=== PATIENT | male | born 1945 | race Caucasian/White ===

== ENCOUNTER 2016-12-24 03:18 | Inpatient (IN) | payer MEDICARE, BC ==
[2016-12-24] MEDS ORDERED: Sodium Chloride 0.9% 1000 ML 1,000 ML IV STA (03:44)
[2016-12-24] MEDS ORDERED: Zofran 4 MG/2 ML VIAL IV ONE ×2 (03:44→08:00)
--- NOTE | 2016-12-24 03:48 | ERPHSYRPT ---
- History of Present Illness Time Seen by Provider: 12/24/16 03:46 Historian: patient Exam Limitations: no limitations Patient Subjective Stated Complaint: pt states he has been vomiting since he ate around 1300. c/o n/v and abd pain Triage Nursing Assessment: pt alert and oriented. answers questions approp. skin pink warm and dry. respirations nonlabored with lungs cta. abd distended and hard. bowel sounds hypo. pt states he hasnt been passing flatus for several hours but did have a normal bowel movement around 6pm. Physician History: pt states he has been vomiting since he ate around 1300. c/o n/v and abd pain. c /o abdominal distension, no diarrhea, no fever Timing/Duration: yesterday Activities at Onset: none Associated Symptoms: loss of appetite, nausea, vomiting Previous symptoms: no prior history Allergies/Adverse Reactions: iodine Allergy (Verified 12/24/16 04:06) Sulfa (Sulfonamide Antibiotics) Allergy (Verified 12/24/16 04:06) Home Medications: Amlodipine Besylate/Benazepril [Amlodipine-Benazepril 10-20 mg] 1 each PO DAILY 12/24/16 [History] Aspirin 81 mg PO DAILY 12/24/16 [History] Fenofibrate,Micronized [Fenofibrate] 134 mg PO DAILY 12/24/16 [History] Metoprolol Tartrate 100 mg PO BID 12/24/16 [History] Simvastatin 20 mg PO DAILY 12/24/16 [History] Triamterene/Hydrochlorothiazid [Triamterene-Hctz 37.5-25 mg Cp] 1 each PO DAILY 12/24/16 [History] Hx Tetanus, Diphtheria Vaccination/Date Given: Yes Hx Influenza Vaccination/Date Given: Yes Hx Pneumococcal Vaccination/Date Given: Yes Immunizations Up to Date: Yes - Review of Systems Constitutional: No Fever, No Chills Eyes: No Symptoms Ears, Nose, & Throat: No Symptoms Respiratory: No Cough, No Dyspnea Cardiac: No Chest Pain, No Edema, No Syncope Abdominal/Gastrointestinal: Nausea, Vomiting, Appetite Changes, No Abdominal Pain, No Diarrhea, No Hematemesis, No Hematochezia, No Melena Genitourinary Symptoms: No Dysuria Musculoskeletal: No Back Pain, No Neck Pain Skin: No Rash Neurological: No Dizziness, No Focal Weakness, No Sensory Changes Psychological: No Symptoms Endocrine: No Symptoms All Other Systems: Reviewed and Negative - Past Medical History Pertinent Past Medical History: Yes Neurological History: No Pertinent History ENT History: No Pertinent History Cardiac History: High Cholesterol, Hypertension Respiratory History: No Pertinent History Endocrine Medical History: No Pertinent History Male Reproductive Disorders: Prostate Cancer - Past Surgical History Past Surgical History: Yes Musculoskeletal: Other Male Surgical History: Prostate Surgery Other Surgical History: rt thumb reattatched, - Social History Smoking Status: Former smoker Exposure to second hand smoke: No Drug Use: none Patient Lives Alone: Yes - Nursing Vital Signs Nursing Vital Signs: Initial Vital Signs Temperature 97.5 F Temperature Source Oral Pulse Rate 91 Respiratory Rate 18 Blood Pressure [] 138/88 Pain Intensity 7 - Physical Exam General Appearance: no apparent distress, alert Eye Exam: PERRL/EOMI, eyes nml inspection Ears, Nose, Throat Exam: normal ENT inspection, pharynx normal, moist mucous membranes Neck Exam: normal inspection, non-tender, supple, full range of motion Respiratory Exam: normal breath sounds, lungs clear, No respiratory distress Cardiovascular Exam: regular rate/rhythm, normal heart sounds Gastrointestinal/Abdomen Exam: soft, distention, No tenderness, No mass Rectal Exam: deferred Back Exam: normal inspection, normal range of motion, No CVA tenderness, No vertebral tenderness Extremity Exam: normal inspection, normal range of motion, pelvis stable Neurologic Exam: alert, oriented x 3, cooperative, normal mood/affect, nml cerebellar function, sensation nml, No motor deficits Skin Exam: normal color, warm, dry SpO2: 93 Oxygen Delivery: Room Air - Course Nursing assessment & vital signs reviewed: Yes - CT Exams Abdomen/Pelvis CT Interpretation: Tele-radiologist Report (cholecystitis) Ordered Tests: Active Orders 24 hr Category Date Time Status ABDOMEN AND PELVIS W/0 CONTRAS [CT] Stat Exams 12/24/16 03:45 Taken AMYLASE Stat Lab 12/24/16 03:57 Completed CBC W DIFF Stat Lab 12/24/16 03:57 Completed CMP Stat Lab 12/24/16 03:57 Completed LIPASE Stat Lab 12/24/16 03:57 Completed Lactic Acid Urgent Lab 12/24/16 03:44 Completed TROPONIN Stat Lab 12/24/16 03:57 Completed UA Stat Lab 12/24/16 03:44 Ordered Medication Summary Discontinued Medications Generic Name Dose Route Start Last Admin Trade Name Freq PRN Reason Stop Dose Admin Sodium Chloride 1,000 mls @ 999 mls/hr 12/24/16 03:44 12/24/16 03:56 Sodium Chloride 0.9% 1000 Ml IV 12/24/16 04:44 999 mls/hr .Q1H1M STA Administration Sodium Chloride Confirm 12/24/16 03:55 Sodium Chloride 0.9% 1000 Ml Administered 12/24/16 03:56 Dose 1,000 mls @ ud .ROUTE .STK-MED ONE Ondansetron HCl 4 mg 12/24/16 03:44 12/24/16 03:56 Zofran 4 Mg/2 Ml Vial IV 12/24/16 03:45 4 mg STAT ONE Administration Ondansetron HCl Confirm 12/24/16 03:55 Zofran 4 Mg/2 Ml Vial Administered 12/24/16 03:56 Dose 4 mg .ROUTE .STK-MED ONE Lab/Rad Data: Laboratory Result Diagrams 12/24/16 03:57 12/24/16 03:57 Laboratory Results 12/24/16 12/24/16 12/24/16 Range/Units 03:57 03:57 03:44 WBC 14.9 H (4.0-10.5) K/mm3 RBC 5.63 H (4.1-5.6) M/mm3 Hgb 16.3 (12.5-18.0) gm/dl Hct 47.6 (42-50) % MCV 84.5 (78-100) fl MCH 28.9 (26-32) pg MCHC 34.2 (32-36) g/dl RDW 13.6 (11.5-14.0) % Plt Count 204 (150-450) K/mm3 MPV 11.6 H (6-9.5) fl Gran % 86.0 H (36.0-66.0) % Lymphocytes % 7.9 L (24.0-44.0) % Monocytes % 5.9 (0.0-12.0) % Eosinophils % 0.1 (0.00-5.0) % Basophils % 0.1 (0.0-0.4) % Basophils # 0.02 (0-0.4) Sodium 138 (136-145) mEq/L Potassium 3.9 (3.5-5.1) mEq/L Chloride 101 (98-107) mEq/L Carbon Dioxide 24.2 (21-32) mEq/L Anion Gap 17.1 H (5-15) MEQ/L BUN 20 (9-20) mg/dL Creatinine 1.05 (0.55-1.30) mg/dl Estimated GFR > 60 ML/MIN Glucose 210 H (70-110) MG/DL Lactic Acid 1.8 (0.4-2.0) Calcium 9.1 (8.5-10.1) mg/dL Total Bilirubin 0.9 (0.2-1.0) mg/dL AST 18 (15-37) U/L ALT 26 (12-78) U/L Alkaline Phosphatase 58 (46-116) U/L Troponin I < 0.017 (0.000-0.056) ng/ml Serum Total Protein 7.1 (6.4-8.2) gm/dL Albumin 3.8 (3.4-5.0) g/dL Amylase 42 (25-115) U/L Lipase 127 (73-393) U/L - Progress Progress: improved, pain not gone completely Discussed with : Preethi Will see patient in: hospital (observation) Counseled pt/family regarding: lab results, diagnosis, need for follow-up, rad results - Departure Time of Disposition: 05:10 Departure Disposition: Observation Clinical Impression: Cholecystitis Condition: Fair Critical Care Time: Yes Critical Care Time(excluding separately billable procedures): 30-74 minutes Referrals: MANNY KINNEY MD [Primary Care Provider] -
[2016-12-24] MEDS ORDERED: Sodium Chloride 0.9% 1000 ML 1,000 ML ONE (03:55)
[2016-12-24] MEDS ORDERED: Zofran 4 MG/2 ML VIAL ONE (03:55)
[2016-12-24 04:13] LABS: BASOPHIL % 0.1 % (0.0-0.4); Eosinophil % 0.1 % (0.00-5.0); Lymphocytes % 7.9 % (24.0-44.0); Mean Cell Volume 84.5 fl (78-100); Mean Platelet Volume 11.6 fl (6-9.5); Monocytes % 5.9 % (0.0-12.0); Platelet Count 204 K/mm3 (150-450); Red Blood Count 5.63 M/mm3 (4.1-5.6); Red Cell Distribution Width 13.6 % (11.5-14.0); White Blood Count 14.9 K/mm3 (4.0-10.5)
[2016-12-24 04:22] LABS: Mean Corpuscular Hemoglobin 28.9 pg (26-32)
[2016-12-24 04:28] LABS: ALBUMIN 3.8 g/dL (3.4-5.0); ALKALINE PHOSPHATASE 58 U/L (46-116); ANION GAP 17.1 MEQ/L (5-15); BILIRUBIN,TOTAL 0.9 mg/dL (0.2-1.0); BLOOD UREA NITROGEN 20 mg/dL (9-20); CHLORIDE 101 mEq/L (98-107); Carbon Dioxide 24.2 mEq/L (21-32); Glucose 210 MG/DL (70-110); LIPASE 127 U/L (73-393); Potassium 3.9 mEq/L (3.5-5.1); SGOT/AST 18 U/L (15-37); SGPT/ALT 26 U/L (12-78); SODIUM 138 mEq/L (136-145); Total Protein 7.1 gm/dL (6.4-8.2)
[2016-12-24 04:34] LABS: TROPONIN < 0.017 ng/ml (0.000-0.056)
[2016-12-24] MEDS ORDERED: MORPHINE SULFATE 4 MG INJ IV ONE (05:32)
[2016-12-24] MEDS ORDERED: MORPHINE SULFATE 4 MG INJ ONE (05:34)
[2016-12-24] MEDS ORDERED: Sodium Chloride 0.9% 1000 ML 1,000 ML IV SCH (05:52)
[2016-12-24] MEDS ORDERED: MORPHINE SULFATE 2 MG INJ IV PRN (05:52)
[2016-12-24] MEDS: KEFZOL 1 GM/50 ML PREMIX** 50 ML IV SCH ×2 (06:43→13:25)
[2016-12-24] MEDS ORDERED: SUBLIMAZE 100 MCG/2 ML IV ONE (08:00)
[2016-12-24] MEDS ORDERED: DIPRIVAN 200 MG/20 ML IV ONE (08:00)
[2016-12-24] MEDS ORDERED: OFIRMEV IV ONE (08:00)
[2016-12-24] MEDS ORDERED: Quelicin Fliptop 200 MG/10 ML IV ONE (08:00)
[2016-12-24] MEDS ORDERED: Decadron 4 MG INJ IV ONE (08:00)
[2016-12-24] MEDS ORDERED: DILAUDID 2 MG INJECTION IV ONE (08:00)
[2016-12-24] MEDS ORDERED: Zemuron 100 MG/10 ML IV ONE (08:00)
[2016-12-24] MEDS ORDERED: BRIDION 200MG/2ML IV ONE (08:00)
--- NOTE | 2016-12-24 08:40 | XRAY ---
Indication: Lower abdominal pain, abdominal distention, nausea, and vomiting. History of prostate cancer. Multiple contiguous axial images obtained through the abdomen and pelvis without contrast as ordered. Comparison: September 20, 2013. Lung bases are essentially clear. Heart is not enlarged. Noncontrasted stomach and bowel loops appear nonobstructed. Normal appendix. Minimal scattered colonic diverticulosis without diverticulitis. Gallbladder is now abnormally distended with pericholecystic stranding favoring cholecystitis. There may be tiny punctate stones in the cystic duct. Stable 2.6 cm medial left lobe hepatic hypodense lesion favored to be benign given stability over the years. Also stable fatty liver, calcified splenic granulomas, bilateral renal cysts, and previous prostatectomy. Remaining pancreas, adrenal glands, ureters, and bladder appear unremarkable. Moderate aortoiliac calcifications without AAA. Osseous structures intact again with moderate degenerative changes throughout the spine. Impression: 1. Abnormal distended gallbladder with pericholecystic stranding favoring cholecystitis with possible tiny cystic duct stones. 2. Stable colonic diverticulosis, benign left lobe hepatic hypodense lesion, fatty liver, bilateral renal cysts, and calcified splenic granulomas. Comment: Preliminary interpretation was made by C. No discrepancy. CTDI 28.13
--- NOTE | 2016-12-24 09:39 | PCM.HP ---
History of Present Illness - Chief Complaint Chief Complaint: ABD PAIN, N/V for 1-2 days History of Present Illness: is a 71 year old male.came to ER with c/o generalised abdominal distension and nausea and vomiting. denies any diarrhea, fever - Review of Systems Constitutional: No Fever, No Chills Eyes: No Symptoms Ears, Nose, & Throat: No Symptoms Respiratory: No Cough, No Short Of Breath Cardiac: No Chest Pain, No Edema, No Syncope Abdominal/Gastrointestinal: Nausea, Vomiting, Appetite Changes, No Abdominal Pain, No Diarrhea, No Constipation, No Hematemesis, No Hematochezia, No Melena, No Dysphagia Genitourinary Symptoms: No Dysuria Musculoskeletal: No Back Pain, No Neck Pain Skin: No Rash Neurological: No Dizziness, No Focal Weakness, No Sensory Changes Psychological: No Symptoms Endocrine: No Symptoms Hematologic/Lymphatic: No Symptoms Immunological/Allergic: No Symptoms Medications & Allergies Home Medications: Home Medication List Amlodipine Besylate/Benazepril [Amlodipine-Benazepril 10-20 mg] 1 each PO DAILY 12/24/16 [History Confirmed 12/24/16] Aspirin 81 mg PO DAILY 12/24/16 [History Confirmed 12/24/16] Fenofibrate,Micronized [Fenofibrate] 134 mg PO DAILY 12/24/16 [History Confirmed 12/24/16] Metoprolol Tartrate 100 mg PO BID 12/24/16 [History Confirmed 12/24/16] Simvastatin 20 mg PO DAILY 12/24/16 [History Confirmed 12/24/16] Triamterene/Hydrochlorothiazid [Triamterene-Hctz 37.5-25 mg Cp] 1 each PO DAILY 12/24/16 [History Confirmed 12/24/16] Allergies/Adverse Reactions: Allergies Allergy/AdvReac Type Severity Reaction Status Date / Time iodine Allergy Verified 12/24/16 04:06 Sulfa (Sulfonamide Allergy Verified 12/24/16 04:06 Antibiotics) - Past Medical History Past Medical History: Yes Neurological History: Migraines ENT History: Cataracts Cardiac History: High Cholesterol, Hypertension Respiratory History: No Pertinent History Endocrine Medical History: No Pertinent History Musculoskelatal History: Arthritis GI Medical History: No Pertinent History History: No Pertinent History Pyscho-Social History: No Pertinent History Male Reproductive Disorders: Prostate Cancer - Past Surgical History Past Surgical History: Yes Neuro Surgical History: No Pertinent History Cardiac History: No Pertinent History Respiratory Surgery: No Pertinent History GI Surgical History: No Pertinent History Genitourinary Surgical Hx: No Pertinent History Musculskeletal Surgical Hx: Other Male Surgical History: Prostate Surgery Other Surgical History: rt thumb reattatched, - Social History Smoking Status: Former smoker Exposure to second hand smoke: No Alcohol: Occasionally Drug Use: none - Physical Exam Vital Signs: Vital Signs - 24 hr Temp Pulse Resp BP Pulse Ox 12/24/16 07:55 97.5 F 96 H 18 153/91 93 L 12/24/16 07:50 97.5 F 96 H 18 153/91 93 L 12/24/16 05:25 96 H 18 153/91 93 L 12/24/16 05:11 93 L 12/24/16 04:02 91 H 18 138/88 94 L 12/24/16 03:24 97.5 F 102 H 26 H 202/97 93 L General Appearance: no apparent distress, alert Neurologic Exam: alert, oriented x 3, cooperative, normal mood/affect, nml cerebellar function, nml station & gait, sensation nml, No motor deficits Eye Exam: PERRL/EOMI, eyes nml inspection Ears, Nose, Throat Exam: normal ENT inspection, TMs normal, pharynx normal, moist mucous membranes Neck Exam: normal inspection, non-tender, supple, full range of motion Respiratory Exam: normal breath sounds, lungs clear, No respiratory distress Cardiovascular Exam: regular rate/rhythm, normal heart sounds, normal peripheral pulses Gastrointestinal/Abdomen Exam: soft, normal bowel sounds, distention, No tenderness, No mass, No guarding, No rebound, No organomegaly Back Exam: normal inspection, normal range of motion, No CVA tenderness, No vertebral tenderness Extremity Exam: normal inspection, normal range of motion, pelvis stable Skin Exam: normal color, warm, dry, No rash Lymphatic Exam: No adenopathy Results - Labs Lab/Micro Results: Accuchecks Date 12/24/16 Time 09:13 Accuchecks Date 12/24/16 Time 09:13 - Radiology Impressions Radiology Exams & Impressions: 1. Abnormal distended gallbladder with pericholecystic stranding favoring cholecystitis with possible tiny cystic duct stones. 2. Stable colonic diverticulosis, benign left lobe hepatic hypodense lesion, fatty liver, bilateral renal cysts, and calcified splenic granulomas Assessment/Plan (1) Cholecystitis Current Visit: Yes Status: Acute Assessment & Plan: Last Vital Signs Temp 97.5 F 12/24/16 07:55 Pulse 96 H 12/24/16 07:55 Resp 18 12/24/16 07:55 BP 153/91 12/24/16 07:55 Pulse Ox 93 L 12/24/16 07:55 Allergies iodine Allergy (Verified 12/24/16 04:06) Sulfa (Sulfonamide Antibiotics) Allergy (Verified 12/24/16 04:06) Active Medications Amlodipine/Benazepril HCl (Lotrel 5/10 Mg) 2 cap PO DAILY [facility] Stop: 01/23/17 09:59 Fenofibrate (Tricor 145 Mg) 145 mg PO DAILY [facility] Stop: 01/23/17 09:59 Cefazolin Sodium/Dextrose (Kefzol 1 Gm/50 Ml Premix) 50 mls @ 100 mls/hr IV Q8HT [facility] Stop: 01/23/17 05:59 Last Admin: 12/24/16 06:43 Dose: 100 mls/hr Sodium Chloride (Sodium Chloride 0.9% 1000 Ml) 1,000 mls @ 100 mls/hr IV .Q10H [facility] Stop: 01/23/17 05:51 Last Admin: 12/24/16 06:43 Dose: 100 mls/hr Metoprolol Tartrate (Lopressor 50 Mg) 100 mg PO BID [facility] Stop: 01/23/17 09:59 Morphine Sulfate (Morphine Sulfate 2 Mg Inj) 2 mg IV Q4H PRN PRN PRN Reason: PAIN Stop: 12/29/16 05:51 Simvastatin (Zocor 20mg) 20 mg PO DAILY [facility] Stop: 01/23/17 09:59 Triamterene/HCTZ (Maxzide-25mg Tablet) 1 tab PO DAILY [facility] Stop: 01/23/17 09:59 Intake & Output 12/23/16 12/24/16 11:59 11:59 Weight 113.398 kg Orders 12/24/16 03:44 UA Stat 12/24/16 05:52 Up Ad Kelly ROUTINE ACCUCHECK [Accucheck] [facility] Admission/Status Order ROUTINE Code Status Order ROUTINE IV Care Q6H Rigo Mckeon ROUTINE Consult Surgery ROUTINE Morphine Sulfate 2 mg Inj 2 mg IV Q4H PRN PRN NaCl 0.9% 1000 ml [Sodium Chloride 0.9% 1000 ML] 1,000 ml IV 100 mls/hr 12/24/16 06:00 Cefazolin 1 gm/50 ml Premix [Kefzol 1 gm/50 ml Premix] 50 ml IV Q8HT 12/24/16 10:00 Amlodipine/Benzapril 5/10 mg [Lotrel 5/10 MG] 2 cap PO DAILY Fenofibrate,Micronized 145 mg* [Tricor 145 MG] 145 mg PO DAILY Hctz/Triamteren 37.5 mg/25 mg* [Maxzide-25MG Tablet] 1 tab PO DAILY Metoprolol Tartrate 50 mg [Lopressor 50 MG] 100 mg PO BID Simvastatin 20Mg [Zocor 20Mg] 20 mg PO DAILY Lab Tests 12/24/16 12/24/16 12/24/16 03:44 03:57 03:57 WBC 14.9 H RBC 5.63 H Hgb 16.3 Hct 47.6 MCV 84.5 MCH 28.9 MCHC 34.2 RDW 13.6 Plt Count 204 MPV 11.6 H Gran % 86.0 H Lymphocytes % 7.9 L Monocytes % 5.9 Eosinophils % 0.1 Basophils % 0.1 Basophils # 0.02 Sodium 138 Potassium 3.9 Chloride 101 Carbon Dioxide 24.2 Anion Gap 17.1 H BUN 20 Creatinine 1.05 Estimated GFR > 60 Glucose 210 H Lactic Acid 1.8 Calcium 9.1 Total Bilirubin 0.9 AST 18 ALT 26 Alkaline Phosphatase 58 Troponin I < 0.017 Serum Total Protein 7.1 Albumin 3.8 Amylase 42 Lipase 127 Awaiting surgical consult Code(s): K81.9 - CHOLECYSTITIS, UNSPECIFIED
[2016-12-24] MEDS ORDERED: AMLODIPINE BESYLATE PO SCH (10:00)
[2016-12-24] MEDS ORDERED: [UNRECOGNIZED DRUG - OTHER] PO SCH (10:00)
[2016-12-24] MEDS ORDERED: FENOFIBRATE MICRONIZED 134 MG PO SCH (10:00)
[2016-12-24] MEDS ORDERED: NON-FORMULARY ITEM (Triamterene/Hydrochlorothiazid [Triamterene-Hctz 37.5-25 Mg Cp] 1 EACH PO SCH (10:00)
[2016-12-24] MEDS ORDERED: NON-FORMULARY ITEM (Metoprolol Tartrate [Metoprolol Tartrate] 100 MG) PO SCH (10:00)
[2016-12-24] MEDS ORDERED: BENAZEPRIL PO SCH (10:00)
[2016-12-24] MEDS: Lotrel 5/10 MG PO SCH (10:03)
[2016-12-24] MEDS: Tricor 145 MG PO SCH (10:03)
[2016-12-24] MEDS: ZOCOR 20MG PO SCH (10:04)
[2016-12-24] MEDS: Maxzide-25MG Tablet PO SCH (10:04)
[2016-12-24] MEDS: Lopressor 50 MG PO SCH ×2 (10:04→21:20)
[2016-12-24] MEDS ORDERED: Lactated Ringers 1,000 ML IV ONE ×3 (14:55→17:41)
[2016-12-24] MEDS ORDERED: Sensorcaine 0.25% 10 ML ONE (15:38)
[2016-12-24] MEDS ORDERED: KEFZOL 1 GM ONE (16:46)
[2016-12-24] MEDS ORDERED: OFIRMEV 100 ML IV ONE (17:01)
[2016-12-24] MEDS ORDERED: Xopenex 1.25 MG/0.5 ML UD NEBULE IH ONE ×2 (18:30→18:36)
[2016-12-24] MEDS ORDERED: Sodium Chloride 3 ML UD NEBULES IH ONE (18:36)
[2016-12-24] MEDS ORDERED: Morphine PCA 1 MG/ML 30 ML IV ONE (18:43)
[2016-12-24] MEDS: Morphine PCA 1 MG/ML 30 ML IV PRN (19:13)
[2016-12-24] MEDS ORDERED: Zofran 4 MG/2 ML VIAL IV PRN (20:16)
[2016-12-24] MEDS ORDERED: TYLENOL 325 MG PO PRN (20:17)
[2016-12-24] MEDS: Dextrose 5%-Lr IV Solution 1000 ML 1,000 ML IV SCH (21:20)
[2016-12-24] MEDS: MEFOXIN 1 Gm/ D5W 50 Ml** 50 ML IV SCH ×2 (21:20→21:49)
[2016-12-25] MEDS: MEFOXIN 1 Gm/ D5W 50 Ml** 50 ML IV SCH ×3 (05:28→23:25)
[2016-12-25 05:55] LABS: Mean Cell Volume 88.4 fl (78-100); Mean Corpuscular Hemoglobin 29.3 pg (26-32); Mean Platelet Volume 11.7 fl (6-9.5); Platelet Count 175 K/mm3 (150-450); Red Blood Count 4.75 M/mm3 (4.1-5.6); Red Cell Distribution Width 13.7 % (11.5-14.0); White Blood Count 12.3 K/mm3 (4.0-10.5)
[2016-12-25] MEDS: NovoLOG Insulin SQ PRN (07:46)
[2016-12-25] MEDS: Morphine PCA 1 MG/ML 30 ML IV PRN ×2 (08:00→17:42)
[2016-12-25] MEDS ORDERED: Zofran 4 MG/2 ML VIAL IVIM PRN (08:25)
[2016-12-25] MEDS: CHLORASEPTIC SPRAY 180 ML PO PRN (08:50)
[2016-12-25] MEDS: Lopressor 50 MG PO SCH ×2 (08:50→21:46)
[2016-12-25] MEDS: Lotrel 5/10 MG PO SCH (08:51)
[2016-12-25] MEDS: Maxzide-25MG Tablet PO SCH (08:51)
[2016-12-25] MEDS: Tricor 145 MG PO SCH (08:51)
[2016-12-25] MEDS: ZOCOR 20MG PO SCH (08:51)
[2016-12-25] MEDS: Dextrose 5%-Lr IV Solution 1000 ML 1,000 ML IV SCH (09:21)
[2016-12-25] MEDS ORDERED: PROVENTIL 2.5 MG/3 ML NEB IH ONE (15:51)
[2016-12-25] MEDS: PROVENTIL 2.5 MG/3 ML NEB IH PRN ×2 (15:57→21:25)
[2016-12-25] MEDS ORDERED: Dextrose 5%-Lr IV Solution 1000 ML 1,000 ML IV SCH (17:30)
[2016-12-25] MEDS: NORCO 5/325 MG PO PRN (21:46)
--- NOTE | 2016-12-25 22:20 | XRAY ---
Indication: Cough and short of breath. Status post cholecystectomy. Comparison: None Portable chest markedly underinflated with cardiomegaly and bibasilar infiltrates/atelectasis/effusion, left greater than right. No pneumothorax. Bony thorax intact.
[2016-12-26] MEDS: PROVENTIL 2.5 MG/3 ML NEB IH PRN ×2 (02:38→06:58)
[2016-12-26] MEDS: CHLORASEPTIC SPRAY 180 ML PO PRN (03:07)
[2016-12-26] MEDS: Morphine PCA 1 MG/ML 30 ML IV PRN ×4 (03:08→19:37)
[2016-12-26] MEDS: MEFOXIN 1 Gm/ D5W 50 Ml** 50 ML IV SCH ×3 (05:45→21:49)
[2016-12-26] MEDS: NovoLOG Insulin SQ PRN ×4 (07:54→21:59)
[2016-12-26] MEDS: Maxzide-25MG Tablet PO SCH (09:00)
[2016-12-26] MEDS: Lopressor 50 MG PO SCH ×2 (09:30→21:45)
[2016-12-26] MEDS: ZOCOR 20MG PO SCH (09:31)
[2016-12-26] MEDS: Tricor 145 MG PO SCH (09:31)
[2016-12-26] MEDS: Lotrel 5/10 MG PO SCH (09:32)
[2016-12-26] MEDS: Lasix 20 MG/2 ML IV SCH (09:40)
[2016-12-26] MEDS: Levofloxacin 500MG/100ML D5W 100 ML IV SCH (09:40)
[2016-12-26] MEDS: solu-MEDROL 40 MG IV SCH ×3 (09:40→21:49)
--- NOTE | 2016-12-26 09:41 | OP ---
SURGERY DATE/TIME: 12/24/2016 1621 PREOPERATIVE DIAGNOSIS: Acute cholecystitis, cholelithiasis. POSTOPERATIVE DIAGNOSIS: Acute cholecystitis, cholelithiasis. PROCEDURE: Laparoscopic cholecystectomy. SURGEON: Dr. Love. ANESTHESIA: General endotracheal tube. ESTIMATED BLOOD LOSS: Minimal. COMPLICATIONS: None. DRAINS: 1 INDICATIONS: A 71 year old with acute cholecystitis, cholelithiasis. Taken to surgery. DESCRIPTION OF PROCEDURE AND FINDINGS: General anesthetic, routine prep and drape. Veress needle inserted. Opening pressure of 1, insufflating pressure 14. He does have a diastasis through the upper part of the abdomen and ports were placed more laterally because of this to avoid this. The gallbladder was acutely gangrenous. Gallbladder stretched up. Infundibulum dissected. Cystic duct triply clipped. Cystic artery triply clipped. Gallbladder rolled out of gallbladder fossa. The gallbladder delivered through upper abdominal port. Field is clean and dry. A 10 JAYDEN was placed. The gallbladder had been removed from the upper abdominal incision this was closed with hole closure device. Sin closed with 4-0 Vicryl and Steri-Strips. The patient tolerated the procedure satisfactorily.
[2016-12-26] MEDS: Colace 100 MG PO SCH ×2 (11:10→21:46)
[2016-12-26] MEDS: DUONEB 0.5-3 MG/3 ml Neb IH SCH ×4 (11:14→22:50)
[2016-12-26] MEDS: NORCO 5/325 MG PO PRN (11:45)
--- NOTE | 2016-12-26 13:44 | PCM.NOTE ---
Date and Time: 12/25/16 1339 late entry Subjective Assessment: c/o cough and shortness of breath - Review of Systems Constitutional: No Fever, No Chills Eyes: No Symptoms Ears, Nose, & Throat: No Symptoms Respiratory: No Cough, No Short Of Breath Cardiac: No Chest Pain, No Edema, No Syncope Abdominal/Gastrointestinal: No Abdominal Pain, No Nausea, No Vomiting, No Diarrhea Genitourinary Symptoms: No Dysuria Musculoskeletal: No Back Pain, No Neck Pain Skin: No Rash Neurological: No Dizziness, No Focal Weakness, No Sensory Changes Psychological: No Symptoms Endocrine: No Symptoms Hematologic/Lymphatic: No Symptoms Immunological/Allergic: No Symptoms Objective Exam General Appearance: no apparent distress, alert Neurologic Exam: alert, oriented x 3, cooperative, normal mood/affect, nml cerebellar function, sensation nml, No motor deficits Skin Exam: normal color, warm, dry Eye Exam: PERRL, EOMI, eyes nml inspection Ears, Nose, Throat Exam: normal ENT inspection, pharynx normal, moist mucous membranes Neck Exam: normal inspection, non-tender, supple, full range of motion Respiratory Exam: diminished breath sounds, crackles/rales, rhonchi, No respiratory distress Cardiovascular Exam: regular rate/rhythm, normal heart sounds Gastrointestinal/Abdomen Exam: soft, No tenderness, No mass Extremity Exam: normal inspection, normal range of motion Back Exam: normal inspection, normal range of motion, No CVA tenderness, No vertebral tenderness Male Genitalia Exam: deferred Rectal Exam: deferred OBJECTIVE DATA Vital Signs: Vital Signs - 24 hr Temp Pulse Resp BP Pulse Ox 12/26/16 12:00 98.0 F 84 24 140/69 95 12/26/16 11:17 75 20 94 L 12/26/16 08:00 34 H 12/26/16 07:29 99.3 F 95 H 34 H 185/84 93 L 12/26/16 06:58 95 H 34 H 93 L 12/26/16 04:00 98.1 F 81 24 153/72 96 12/26/16 03:19 92 L 12/26/16 02:38 82 24 92 L 12/26/16 00:00 21 12/25/16 23:58 98.4 F 86 21 138/60 91 L 12/25/16 21:33 93 L 12/25/16 21:25 92 H 20 93 L 12/25/16 20:00 21 12/25/16 19:59 98.5 F 86 21 144/65 91 L 12/25/16 19:09 89 20 92 L 12/25/16 17:42 94 L 12/25/16 16:00 98.3 F 76 20 170/73 94 L 12/25/16 15:57 76 18 93 L Oxygen-Last 24 hours O2 Percentage 5 Liters = 40% O2 Percentage 3 Liters = 32% O2 Percentage 3 Liters = 32% O2 Percentage 3 Liters = 32% O2 Percentage 3 Liters = 32% O2 Percentage 3 Liters = 32% Pain Assessment - Last Documented Pain Intensity 5 Pain Scale Used 0-10 Pain Scale Intake and Output: Intake & Output 12/24/16 12/25/16 12/26/16 12/27/16 11:59 11:59 11:59 11:59 Intake Total 0 1321 2471 Output Total 440 Balance 0 881 2471 Weight 113.398 kg 113.398 kg Lab Results: Accuchecks Date 12/26/16 Date 12/26/16 Date 12/25/16 Date 12/25/16 Time 11:30 Time 07:00 Time 16:30 Time 16:03 Accucheck Value: 236 Accucheck Value: 229 Accucheck Value: 164 Accucheck Value: 186 Accucheck Value: 186 Radiology Exams: Radiology Procedures Category Date Time Status CHEST 1 VIEW (PORTABLE) Urgent Exams 12/25/16 17:30 Completed Multi-Disciplinary Progress Notes: Multi-Disciplinary Progress Notes 12/26/16 09:40 (created 12/26/16 12:56) Case Management Note by Dorota Rodriguez DISCHARGE PLAN REVIEWED, PROVIDES SELF CARE, INDEPENDENT WITH ALL ADL'S. CONTINUES TO DECLINE NEEDS FOR DISCHARGE. AT HOME TO ASSIST IF NEEDED. Initialized on 12/26/16 12:56 - END OF NOTE 12/26/16 07:23 Respiratory Note by Miguelina Mcduffie SPO2 89 ON 3LPM. INC TO 5LPM Initialized on 12/26/16 07:23 - END OF NOTE Assessment/Plan (1) Cholecystitis Current Visit: Yes Status: Acute Code(s): K81.9 - CHOLECYSTITIS, UNSPECIFIED (2) Pneumonia Current Visit: Yes Status: Acute Qualifiers: Pneumonia type: due to unspecified organism Laterality: right Lung location: lower lobe of lung Qualified Code(s): J18.1 - Lobar pneumonia, unspecified organism Code(s): J18.9 - PNEUMONIA, UNSPECIFIED ORGANISM
--- NOTE | 2016-12-26 13:45 | PCM.NOTE ---
Date and Time: 12/26/16 7344 Subjective Assessment: doing ok - Review of Systems Constitutional: No Fever, No Chills Eyes: No Symptoms Ears, Nose, & Throat: No Symptoms Respiratory: No Cough, No Short Of Breath Cardiac: No Chest Pain, No Edema, No Syncope Abdominal/Gastrointestinal: No Abdominal Pain, No Nausea, No Vomiting, No Diarrhea Genitourinary Symptoms: No Dysuria Musculoskeletal: No Back Pain, No Neck Pain Skin: No Rash Neurological: No Dizziness, No Focal Weakness, No Sensory Changes Psychological: No Symptoms Endocrine: No Symptoms Hematologic/Lymphatic: No Symptoms Immunological/Allergic: No Symptoms Objective Exam General Appearance: no apparent distress, alert Neurologic Exam: alert, oriented x 3, cooperative, normal mood/affect, nml cerebellar function, sensation nml, No motor deficits Skin Exam: normal color, warm, dry Eye Exam: PERRL, EOMI, eyes nml inspection Ears, Nose, Throat Exam: normal ENT inspection, pharynx normal, moist mucous membranes Neck Exam: normal inspection, non-tender, supple, full range of motion Respiratory Exam: lungs clear, crackles/rales, rhonchi, No respiratory distress Cardiovascular Exam: regular rate/rhythm, normal heart sounds Gastrointestinal/Abdomen Exam: soft, No tenderness, No mass Extremity Exam: normal inspection, normal range of motion Back Exam: normal inspection, normal range of motion, No CVA tenderness, No vertebral tenderness Male Genitalia Exam: deferred Rectal Exam: deferred OBJECTIVE DATA Vital Signs: Vital Signs - 24 hr Temp Pulse Resp BP Pulse Ox 12/26/16 12:00 98.0 F 84 24 140/69 95 12/26/16 11:17 75 20 94 L 12/26/16 08:00 34 H 12/26/16 07:29 99.3 F 95 H 34 H 185/84 93 L 12/26/16 06:58 95 H 34 H 93 L 12/26/16 04:00 98.1 F 81 24 153/72 96 12/26/16 03:19 92 L 12/26/16 02:38 82 24 92 L 12/26/16 00:00 21 12/25/16 23:58 98.4 F 86 21 138/60 91 L 12/25/16 21:33 93 L 12/25/16 21:25 92 H 20 93 L 12/25/16 20:00 21 12/25/16 19:59 98.5 F 86 21 144/65 91 L 12/25/16 19:09 89 20 92 L 12/25/16 17:42 94 L 12/25/16 16:00 98.3 F 76 20 170/73 94 L 12/25/16 15:57 76 18 93 L Oxygen-Last 24 hours O2 Percentage 5 Liters = 40% O2 Percentage 3 Liters = 32% O2 Percentage 3 Liters = 32% O2 Percentage 3 Liters = 32% O2 Percentage 3 Liters = 32% O2 Percentage 3 Liters = 32% Pain Assessment - Last Documented Pain Intensity 5 Pain Scale Used 0-10 Pain Scale Intake and Output: Intake & Output 12/24/16 12/25/16 12/26/16 12/27/16 11:59 11:59 11:59 11:59 Intake Total 0 1321 2471 Output Total 440 Balance 0 881 2471 Weight 113.398 kg 113.398 kg Lab Results: Accuchecks Date 12/26/16 Date 12/26/16 Date 12/25/16 Date 12/25/16 Time 11:30 Time 07:00 Time 16:30 Time 16:03 Accucheck Value: 236 Accucheck Value: 229 Accucheck Value: 164 Accucheck Value: 186 Accucheck Value: 186 Radiology Exams: Radiology Procedures Category Date Time Status CHEST 1 VIEW (PORTABLE) Urgent Exams 12/25/16 17:30 Completed Multi-Disciplinary Progress Notes: Multi-Disciplinary Progress Notes 12/26/16 09:40 (created 12/26/16 12:56) Case Management Note by Dorota Rodriguez DISCHARGE PLAN REVIEWED, PROVIDES SELF CARE, INDEPENDENT WITH ALL ADL'S. CONTINUES TO DECLINE NEEDS FOR DISCHARGE. AT HOME TO ASSIST IF NEEDED. Initialized on 12/26/16 12:56 - END OF NOTE 12/26/16 07:23 Respiratory Note by Miguelina Mcduffie SPO2 89 ON 3LPM. INC TO 5LPM Initialized on 12/26/16 07:23 - END OF NOTE Assessment/Plan (1) Cholecystitis Current Visit: Yes Status: Acute Code(s): K81.9 - CHOLECYSTITIS, UNSPECIFIED (2) Pneumonia Current Visit: Yes Status: Acute Qualifiers: Pneumonia type: due to unspecified organism Laterality: right Lung location: lower lobe of lung Qualified Code(s): J18.1 - Lobar pneumonia, unspecified organism Assessment & Plan: continue antibiotics Code(s): J18.9 - PNEUMONIA, UNSPECIFIED ORGANISM
[2016-12-27] MEDS: DUONEB 0.5-3 MG/3 ml Neb IH SCH ×3 (02:47→10:30)
[2016-12-27 05:21] LABS: Mean Cell Volume 89.3 fl (78-100); Mean Corpuscular Hemoglobin 29.2 pg (26-32); Mean Platelet Volume 11.3 fl (6-9.5); Platelet Count 201 K/mm3 (150-450); Red Blood Count 4.87 M/mm3 (4.1-5.6); Red Cell Distribution Width 13.5 % (11.5-14.0); White Blood Count 8.2 K/mm3 (4.0-10.5)
[2016-12-27] MEDS: MEFOXIN 1 Gm/ D5W 50 Ml** 50 ML IV SCH (06:01)
[2016-12-27] MEDS: solu-MEDROL 40 MG IV SCH (06:01)
[2016-12-27 06:04] LABS: ALBUMIN 2.8 g/dL (3.4-5.0); ALKALINE PHOSPHATASE 71 U/L (46-116); ANION GAP 15.6 MEQ/L (5-15); BILIRUBIN,TOTAL 0.5 mg/dL (0.2-1.0); BLOOD UREA NITROGEN 21 mg/dL (9-20); CHLORIDE 100 mEq/L (98-107); Carbon Dioxide 28.4 mEq/L (21-32); Glucose 275 MG/DL (70-110); MAGNESIUM 2.1 mg/dL (1.8-2.4); Potassium 4.5 mEq/L (3.5-5.1); SGOT/AST 32 U/L (15-37); SGPT/ALT 83 U/L (12-78); SODIUM 140 mEq/L (136-145); Total Protein 6.4 gm/dL (6.4-8.2)
[2016-12-27] MEDS: NovoLOG Insulin SQ PRN ×2 (07:35→11:07)
[2016-12-27] MEDS: Lasix 20 MG/2 ML IV SCH (08:57)
[2016-12-27] MEDS: Levofloxacin 500MG/100ML D5W 100 ML IV SCH (08:57)
[2016-12-27] MEDS: Tricor 145 MG PO SCH (08:57)
[2016-12-27] MEDS: Lotrel 5/10 MG PO SCH (08:57)
[2016-12-27] MEDS: ZOCOR 20MG PO SCH (08:58)
[2016-12-27] MEDS: Lopressor 50 MG PO SCH (08:58)
[2016-12-27] MEDS: Maxzide-25MG Tablet PO SCH (08:58)
--- NOTE | 2016-12-27 09:44 | XRAY ---
Indication: Short of breath. Comparison: December 25, 2016. PA/lateral chest better inflated today with interval left lung clearing. Stable right base infiltrate/atelectasis and cardiomegaly. No new cardiopulmonary abnormalities.
[2016-12-27] MEDS: Colace 100 MG PO SCH (09:46)
[2016-12-27 11:07] VITALS: BP 144/68
--- NOTE | 2016-12-27 11:50 | PCM.DS ---
Discharge Summary Date of Admission: 12/24/16 05:52 Admitting Physician: MANNY KINNEY Consults: Consults on Case 12/26/16 08:50 Nutritional Consult ROUTINE Primary Care Provider: MANNY KINNEY Allergies Allergies iodine Allergy (Verified 12/24/16 04:06) Sulfa (Sulfonamide Antibiotics) Allergy (Verified 12/24/16 04:06) Hospital Summary - Hospital Course Hospital Course: Chief Complaint Diagnosis ACUTE CHOLECYSTITIS/ pneumonia Allergies Allergy/AdvReac Type Severity Reaction Status Date / Time iodine Allergy Verified 12/24/16 04:06 Sulfa (Sulfonamide Allergy Verified 12/24/16 04:06 Antibiotics) Vital Signs (Last 24 hours) Temp Pulse Resp BP Pulse Ox 12/27/16 11:06 97.8 F 74 18 144/68 98 12/27/16 10:35 74 18 95 12/27/16 07:36 98.5 F 73 20 147/67 93 L 12/27/16 06:43 79 22 95 12/27/16 03:00 98.0 F 72 19 126/59 97 12/27/16 02:47 72 19 97 12/27/16 00:00 98.4 F 72 18 125/60 94 L 12/26/16 22:50 95 H 19 91 L 12/26/16 20:00 98.1 F 90 20 145/69 94 L 12/26/16 19:40 95 12/26/16 19:21 76 18 96 12/26/16 16:00 98.1 F 79 20 140/66 95 12/26/16 15:58 95 12/26/16 15:24 73 18 96 12/26/16 12:00 98.0 F 84 24 140/69 95 Home Medications Medication Instructions Recorded Confirmed Last Taken Type Amlodipine Besylate/Benazepril 1 each PO DAILY 12/24/16 12/24/16 12/22/16 History [Amlodipine-Benazepril 10-20 mg] Aspirin 81 mg PO DAILY 12/24/16 12/24/16 12/22/16 History Fenofibrate,Micronized 134 mg PO DAILY 12/24/16 12/24/16 12/22/16 History [Fenofibrate] Metoprolol Tartrate 100 mg PO BID 12/24/16 12/24/16 12/22/16 History Simvastatin 20 mg PO DAILY 12/24/16 12/24/16 12/22/16 History Triamterene/Hydrochlorothiazid 1 each PO DAILY 12/24/16 12/24/16 12/22/16 History [Triamterene-Hctz 37.5-25 mg Cp] Current Medications Generic Name Dose Route Start Last Admin Trade Name Freq PRN Reason Stop Dose Admin Acetaminophen 650 mg 12/24/16 20:17 Tylenol 325 Mg PO 01/23/17 20:16 Q4H PRN PRN PAIN AND/OR FEVER Acetaminophen/Hydrocodone Bitart 1 - 2 tab 12/24/16 20:20 12/26/16 11:45 [place] 5/325 Mg PO 12/29/16 20:19 1 tab Q4H PRN PRN Administration PAIN Albuterol Sulfate 2.5 mg 12/25/16 15:55 12/26/16 06:58 Proventil 2.5 Mg/3 Ml Neb IH 01/24/17 15:54 2.5 mg Q4H PRN PRN Administration SHORTNESS OF BREATH/WHEEZING Albuterol/Ipratropium 3 ml 12/26/16 11:00 12/27/16 10:30 Duoneb 0.5-3 Mg/3 Ml Neb IH 01/25/17 10:59 3 ml Q4HRT ELODIA Administration Amlodipine/Benazepril HCl 2 cap 12/24/16 10:00 12/27/16 08:57 Lotrel 5/10 Mg PO 01/23/17 09:59 2 cap DAILY ELODIA Administration Docusate Sodium 100 mg 12/26/16 11:00 12/27/16 09:46 Colace 100 Mg PO 01/25/17 10:59 100 mg BID ELODIA Administration Fenofibrate 145 mg 12/24/16 10:00 12/27/16 08:57 Tricor 145 Mg PO 01/23/17 09:59 145 mg DAILY ELODIA Administration Furosemide 20 mg 12/26/16 10:00 12/27/16 08:57 Lasix 20 Mg/2 Ml IV 01/25/17 09:59 20 mg DAILY ELODIA Administration Cefoxitin Sodium 50 mls @ 100 mls/hr 12/25/16 22:00 12/27/16 06:01 Mefoxin 1 Gm/ D5w 50 Ml IV 01/24/17 21:59 100 mls/hr Q8HT ELODIA Administration Levofloxacin/Dextrose 100 mls @ 100 mls/hr 12/26/16 08:45 12/27/16 08:57 Levofloxacin 500mg/100ml D5w IV 01/25/17 08:44 100 mls/hr Q24H ELODIA Administration Insulin Aspart 0 unit 12/25/16 07:28 12/27/16 11:07 Novolog Insulin SQ 01/24/17 07:27 6 unit UD PRN Administration HYPERGLYCEMIA Metformin HCl 500 mg 12/27/16 18:00 Glucophage Xr 500 Mg PO 01/26/17 17:59 EVENING MEAL ELODIA Metoprolol Tartrate 100 mg 12/24/16 10:00 12/27/16 08:58 Lopressor 50 Mg PO 01/23/17 09:59 100 mg BID ELODIA Administration Ondansetron HCl 4 mg 12/25/16 08:25 Zofran 4 Mg/2 Ml Vial IVIM 01/23/17 20:15 Q6H PRN PRN NAUSEA/VOMITING Phenol 0 ml 12/25/16 08:11 12/26/16 03:07 Chloraseptic [place] 180 Ml PO 01/24/17 08:10 2 ml Q4HPRN PRN Administration REDNESS/IRRITATION Simvastatin 20 mg 12/24/16 10:00 12/27/16 08:58 Zocor 20mg PO 01/23/17 09:59 20 mg DAILY ELODIA Administration Triamterene/HCTZ 1 tab 12/24/16 10:00 12/27/16 08:58 Maxzide-25mg Tablet PO 01/23/17 09:59 1 tab DAILY ELODIA Administration Discontinued Medications Generic Name Dose Route Start Last Admin Trade Name Freq PRN Reason Stop Dose Admin Acetaminophen 1,000 mg 12/24/16 08:00 Ofirmev IV 12/24/16 08:01 .STK-MED ONE Albuterol Sulfate Confirm 12/25/16 15:51 Proventil 2.5 Mg/3 Ml Neb Administered 12/25/16 15:52 Dose 2.5 mg IH .STK-MED ONE Bupivacaine HCl Confirm 12/24/16 15:38 Sensorcaine 0.25% 10 Ml Administered 12/24/16 15:39 Dose 10 ml .ROUTE .STK-MED ONE Cefazolin Sodium Confirm 12/24/16 16:46 Kefzol 1 Gm Administered 12/24/16 16:47 Dose 1 g .ROUTE .STK-MED ONE Dexamethasone Sodium Phosphate 4 mg 12/24/16 08:00 Decadron 4 Mg Inj IV 12/24/16 08:01 .STK-MED ONE Fentanyl Citrate 100 mcg 12/24/16 08:00 Sublimaze 100 Mcg/2 Ml IV 12/24/16 08:01 .STK-MED ONE Hydromorphone HCl 2 mg 12/24/16 08:00 Dilaudid 2 Mg Injection IV 12/24/16 08:01 .STK-MED ONE Sodium Chloride 1,000 mls @ 999 mls/hr 12/24/16 03:44 12/24/16 03:56 Sodium Chloride 0.9% 1000 Ml IV 12/24/16 04:44 999 mls/hr .Q1H1M STA Administration Sodium Chloride Confirm 12/24/16 03:55 Sodium Chloride 0.9% 1000 Ml Administered 12/24/16 03:56 Dose 1,000 mls @ ud .ROUTE .STK-MED ONE Cefazolin Sodium/Dextrose 50 mls @ 100 mls/hr 12/24/16 06:00 12/24/16 13:25 Kefzol 1 Gm/50 Ml Premix IV 01/23/17 05:59 100 mls/hr Q8HT ELODIA Administration Sodium Chloride 1,000 mls @ 100 mls/hr 12/24/16 05:52 12/24/16 06:43 Sodium Chloride 0.9% 1000 Ml IV 01/23/17 05:51 100 mls/hr .Q10H ELODIA Administration Lactated Ringer's Confirm 12/24/16 14:55 Lactated Ringers Administered 12/24/16 14:56 Dose 1,000 mls @ ud IV .STK-MED ONE Lactated Ringer's Confirm 12/24/16 15:38 Lactated Ringers Administered 12/24/16 15:39 Dose 1,000 mls @ ud IV .STK-MED ONE Acetaminophen Confirm 12/24/16 17:01 Ofirmev Administered 12/24/16 17:02 Dose 100 mls @ ud IV .STK-MED ONE Lactated Ringer's Confirm 12/24/16 17:41 Lactated Ringers Administered 12/24/16 17:42 Dose 1,000 mls @ ud IV .STK-MED ONE Dextrose/Lactated Ringer's 1,000 mls @ 75 mls/hr 12/24/16 20:30 12/25/16 09: 21 Dextrose 5%-Lr Iv Solution 1000 Ml IV 01/23/17 20:29 75 mls/hr .[id number] ELODIA Administration Cefoxitin Sodium 50 mls @ 100 mls/hr 12/24/16 21:00 12/25/16 13:15 Mefoxin 1 Gm/ D5w 50 Ml IV 01/23/17 20:59 100 mls/hr Q8HT ELODIA Administration Dextrose/Lactated Ringer's 1,000 mls @ 20 mls/hr 12/25/16 17:30 Dextrose 5%-Lr Iv Solution 1000 Ml IV 01/24/17 17:29 .Q24H ELODIA Levalbuterol HCl Confirm 12/24/16 18:36 Xopenex 1.25 Mg/0.5 Ml Ud Nebule Administered 12/24/16 18:37 Dose 1.25 mg IH .STK-MED ONE Levalbuterol HCl 1.25 mg 12/24/16 18:30 12/24/16 18:40 Xopenex 1.25 Mg/0.5 Ml Ud Nebule IH 12/24/16 18:31 1.25 mg STAT ONE Administration Metformin HCl 500 mg 12/28/16 08:00 Glucophage 500 Mg PO 01/27/17 07:59 BREAKFAST ELODIA Methylprednisolone Sodium Succinate 40 mg 12/26/16 08:45 12/27/16 06:01 Solu-Medrol 40 Mg IV 01/25/17 08:44 40 mg Q8HT ELODIA Administration Morphine Sulfate 4 mg 12/24/16 05:32 12/24/16 05:34 Morphine Sulfate 4 Mg Inj IV 12/24/16 05:33 4 mg STAT ONE Administration Morphine Sulfate Confirm 12/24/16 05:34 Morphine Sulfate 4 Mg Inj Administered 12/24/16 05:35 Dose 4 mg .ROUTE .STK-MED ONE Morphine Sulfate 2 mg 12/24/16 05:52 12/24/16 10:36 Morphine Sulfate 2 Mg Inj IV 12/29/16 05:51 2 mg Q4H PRN PRN Administration PAIN Morphine Sulfate Confirm 12/24/16 18:43 Morphine Automation Qa Tester 1 Mg/Ml 30 Ml Administered 12/24/16 18:44 Dose 30 mg IV .STK-MED ONE Morphine Sulfate 30 mg 12/24/16 19:09 12/26/16 19:37 Morphine Automation Qa Tester 1 Mg/Ml 30 Ml IV 12/29/16 19:08 30 mg PRN PRN Administration PAIN Ondansetron HCl 4 mg 12/24/16 03:44 12/24/16 03:56 Zofran 4 Mg/2 Ml Vial IV 12/24/16 03:45 4 mg STAT ONE Administration Ondansetron HCl Confirm 12/24/16 03:55 Zofran 4 Mg/2 Ml Vial Administered 12/24/16 03:56 Dose 4 mg .ROUTE .STK-MED ONE Ondansetron HCl 4 mg 12/24/16 20:16 Zofran 4 Mg/2 Ml Vial IV 01/23/17 20:15 Q6H PRN PRN NAUSEA/VOMITING Ondansetron HCl 4 mg 12/24/16 08:00 Zofran 4 Mg/2 Ml Vial IV 12/24/16 08:01 .STK-MED ONE Propofol 200 mg 12/24/16 08:00 Diprivan 200 Mg/20 Ml IV 12/24/16 08:01 .STK-MED ONE Rocuronium [place] 10 mg 12/24/16 08:00 Zemuron 100 Mg/10 Ml IV 12/24/16 08:01 .STK-MED ONE Sodium Chloride Confirm 12/24/16 18:36 Sodium Chloride 3 Ml Ud Nebules Administered 12/24/16 18:37 Dose 3 ml IH .STK-MED ONE Succinylcholine Chloride 20 mg 12/24/16 08:00 Quelicin Fliptop 200 Mg/10 Ml IV 12/24/16 08:01 .STK-MED ONE Intake & Output (Last 24 hours) 12/24/16 12/25/16 12/26/16 12/27/16 11:59 11:59 11:59 11:59 Intake Total 0 1321 2471 1713 Output Total 440 100 Balance 0 881 2471 1613 Weight 113.398 kg 113.398 kg 113.398 kg Laboratory Results (Last 24 hours) 12/27/16 12/27/16 05:16 05:16 WBC 8.2 RBC 4.87 Hgb 14.2 Hct 43.5 MCV 89.3 MCH 29.2 MCHC 32.6 RDW 13.5 Plt Count 201 MPV 11.3 H Sodium 140 Potassium 4.5 Chloride 100 Carbon Dioxide 28.4 Anion Gap 15.6 H BUN 21 H Creatinine 1.11 Estimated GFR > 60 Glucose 275 H Calcium 9.0 Magnesium 2.1 Total Bilirubin 0.5 AST 32 ALT 83 H Alkaline Phosphatase 71 Serum Total Protein 6.4 Albumin 2.8 L Orders (Last 24 hours) Category Date Time Status CHEST 2 VIEWS (PA AND LAT) Urgent Exams 12/27/16 08:59 Completed ECHO W/2D AND DOPPLER [US] Routine Exams 12/27/16 08:59 Ordered CBC Routine Lab 12/27/16 05:16 Completed CMP Routine Lab 12/27/16 05:16 Completed MAG [MAGNESIUM] Routine Lab 12/27/16 05:16 Completed Albuterol/Ipratropium 3ml Neb* [DUONEB 0.5-3 MG/3 ml Med 12/26/16 11:00 Active Neb] 3 ml IH Q4HRT Docusate Sodium 100 mg [Colace 100 MG] Med 12/26/16 11:00 Active 100 mg PO BID Metformin HCl 500 mg [Glucophage 500 MG] Med 12/28/16 08:00 Discontinued 500 mg PO BREAKFAST Metformin HCl Xr 500 mg [Glucophage XR 500 MG] Med 12/27/16 18:00 Active 500 mg PO EVENING MEAL Respiratory Nebulizer Q4H RT 12/27/16 07:00 Active Patient Care Notes (Last 24 hours) 12/26/16 14:01 Physical Therapy Note by Raquel Matos PHYSICAL THERAPY INTERVENTION NOT WARRANTED POST-OP WALKING PER NURSING MEASURES IS MEETING PATIENT'S NEEDS. PATIENT IS UP AD KOURTNEY IN HIS ROOM. FUNCTIONAL MOBILITY AND STRENGTH WNL. PLOF: INDEPENDENT AT HOME WITH SPOUSE. Initialized on 12/26/16 14:01 - END OF NOTE 12/26/16 12:45 Nursing Note by Krys Valdez JP, DC'd; tolerated well. Initialized on 12/26/16 12:45 - END OF NOTE doing better, will d/c home see discharge instructions - Vitals & Intake/Output Vital Signs: Vital Signs Temperature 97.8 F 12/27/16 11:06 Pulse Rate 77 12/27/16 11:06 Respiratory Rate 18 12/27/16 11:06 Blood Pressure 144/68 12/27/16 11:06 O2 Sat by Pulse Oximetry 98 12/27/16 11:06 Oxygen-Last Documented O2 Percentage 2 Liters = 28% Intake & Output: Intake & Output 12/24/16 12/25/16 12/26/16 12/27/16 11:59 11:59 11:59 11:59 Intake Total 0 1321 2471 1713 Output Total 440 100 Balance 0 881 2471 1613 Weight 113.398 kg 113.398 kg 113.398 kg - Lab Result Diagrams: 12/27/16 05:16 12/27/16 05:16 Lab Results-Last 24 Hrs: Accuchecks Date 12/27/16 Date 12/27/16 Date 12/26/16 Date 12/26/16 Date 12/26/16 Date 12/26/16 Time 11:06 Time 07:05 Time 16:30 Time 11:30 Time 11:30 Accucheck Value: 329 Accucheck Value: 244 Accucheck Value: 310 Accucheck Value: 227 Accucheck Value: 227 Accucheck Value: 263 Lab Results-Last 24 Hours 12/27/16 12/27/16 Range/Units 05:16 05:16 WBC 8.2 (4.0-10.5) K/mm3 RBC 4.87 (4.1-5.6) M/mm3 Hgb 14.2 (12.5-18.0) gm/dl Hct 43.5 (42-50) % MCV 89.3 (78-100) fl MCH 29.2 (26-32) pg MCHC 32.6 (32-36) g/dl RDW 13.5 (11.5-14.0) % Plt Count 201 (150-450) K/mm3 MPV 11.3 H (6-9.5) fl Sodium 140 (136-145) mEq/L Potassium 4.5 (3.5-5.1) mEq/L Chloride 100 (98-107) mEq/L Carbon Dioxide 28.4 (21-32) mEq/L Anion Gap 15.6 H (5-15) MEQ/L BUN 21 H (9-20) mg/dL Creatinine 1.11 (0.55-1.30) mg/dl Estimated GFR > 60 ML/MIN Glucose 275 H (70-110) MG/DL Calcium 9.0 (8.5-10.1) mg/dL Magnesium 2.1 (1.8-2.4) mg/dL Total Bilirubin 0.5 (0.2-1.0) mg/dL AST 32 (15-37) U/L ALT 83 H (12-78) U/L Alkaline Phosphatase 71 (46-116) U/L Serum Total Protein 6.4 (6.4-8.2) gm/dL Albumin 2.8 L (3.4-5.0) g/dL Micro Results-Entire Visit: Accuchecks Date 12/27/16 Date 12/27/16 Date 12/26/16 Date 12/26/16 Date 12/26/16 Date 12/26/16 Time 11:06 Time 07:05 Time 16:30 Time 11:30 Time 11:30 Accucheck Value: 329 Accucheck Value: 244 Accucheck Value: 310 Accucheck Value: 227 Accucheck Value: 227 Accucheck Value: 263 - Radiology Exams Ordered Rad Exams-Entire Visit: Radiology Procedures Category Date Time Status CHEST 1 VIEW (PORTABLE) Urgent Exams 12/25/16 17:30 Completed CHEST 2 VIEWS (PA AND LAT) Urgent Exams 12/27/16 08:59 Completed ECHO W/2D AND DOPPLER [US] Routine Exams 12/27/16 08:59 Ordered - Procedures and Test Procedures and Tests throughout Hospitalization: Therapy Orders & Screens 12/24/16 18:30 Respiratory Nebulizer STAT Comment: XOPENEX 1.25MG STAT Diagnosis: ABD PAIN, N/V for 1-2 days 12/24/16 19:08 Incentive Spirometry Assessmen Comment: Diagnosis: ABD PAIN, N/V for 1-2 days 12/24/16 20:09 Oxygen NASAL CANNULA 2 lpm Comment: TO KEEP SPO2 >92% PER R.T. PROTOCOL Diagnosis: ABD PAIN, N/V for 1-2 days 12/25/16 15:55 Respiratory Nebulizer PRN Comment: Diagnosis: ACUTE CHOLECYSTITIS 12/27/16 07:00 Respiratory Nebulizer Q4H Comment: DUONEB Q4 HOURS Diagnosis: ACUTE CHOLECYSTITIS/ pneumonia Discharge Exam General Appearance: no apparent distress, alert Neurologic Exam: alert, oriented x 3, cooperative, normal mood/affect, nml cerebellar function, sensation nml, No motor deficits Skin Exam: normal color, warm, dry Eye Exam: PERRL, EOMI, eyes nml inspection Ears, Nose, Throat Exam: normal ENT inspection, pharynx normal, moist mucous membranes Neck Exam: normal inspection, non-tender, supple, full range of motion Respiratory Exam: normal breath sounds, lungs clear, No respiratory distress Cardiovascular Exam: regular rate/rhythm, normal heart sounds Gastrointestinal/Abdomen Exam: soft, No tenderness, No mass Extremity Exam: normal inspection, normal range of motion Back Exam: normal inspection, normal range of motion, No CVA tenderness, No vertebral tenderness Male Genitalia Exam: deferred Rectal Exam: deferred Final Diagnosis/Problem List - Final Discharge Diagnosis/Problem (1) Cholecystitis Current Visit: Yes Status: Resolved Priority: High (2) Pneumonia Current Visit: Yes Status: Resolved (3) Type 2 diabetes mellitus Current Visit: Yes Status: Acute Priority: High (4) CHF (congestive heart failure), NYHA class II Current Visit: Yes Status: Chronic - Discharge Discharge Date: 12/27/16 Disposition: Home, Self-Care Condition: Stable Prescriptions: New Metformin HCl Xr 500 mg [Glucophage XR 500 MG] 500 mg PO EVENING MEAL # 0 tab Levofloxacin [Levaquin] 500 mg PO DAILY #5 tablet Continue Aspirin 81 mg PO DAILY Simvastatin 20 mg PO DAILY Metoprolol Tartrate 100 mg PO BID Triamterene/Hydrochlorothiazid [Triamterene-Hctz 37.5-25 mg Cp] 1 each PO DAILY Fenofibrate,Micronized [Fenofibrate] 134 mg PO DAILY Amlodipine Besylate/Benazepril [Amlodipine-Benazepril 10-20 mg] 1 each PO DAILY Instructions: Cholecystectomy, Laparoscopy Follow up with: MANNY KINNEY MD [Primary Care Provider] - 1 Week
[2016-12-27 13:19] VITALS: PULSE 74; O2SAT 94
[2016-12-27] MEDS ORDERED: Glucophage XR 500 MG PO SCH (18:00)
[2016-12-28] MEDS ORDERED: Glucophage 500 MG PO SCH (08:00)
--- NOTE | 2016-12-28 11:37 | ECHO ---
Transthoracic echocardiographic examination and color Doppler was done on 12/27/2016. INDICATION: Hypertension, diabetes, hyperlipidemia. IMPRESSION: 1) NO REGIONAL WALL MOTION ABNORMALITY. ESTIMATED GLOBAL LEFT VENTRICULAR EJECTION FRACTION 60%. 2) TRACE MITRAL REGURGITATION. 3) TRACE TRICUSPID REGURGITATION. RIGHT VENTRICULAR SYSTOLIC PRESSURE OF 20 MM OF MERCURY. 4) LEFT VENTRICULAR HYPERTROPHY. 5) LEFT VENTRICULAR DIASTOLIC DYSFUNCTION. The left ventricle is visualized and demonstrated adequate motion of all the segments. Estimated global left ventricular ejection fraction 60%. There is mild left ventricular hypertrophy. The mitral valve is mildly sclerotic particularly the posterior leaflet. There is trace mitral regurgitation. Left atrium is mildly enlarged. Tissue Doppler study of the lateral mitral annulus suggested left ventricular diastolic dysfunction. The aortic valve is mildly sclerotic but opens adequately. Right side chambers are normal. There is trace tricuspid regurgitation. Right ventricular systolic pressure of 20 mm of Mercury.
== END 2016-12-27 14:55 | disposition home or self-care (01) | DRG 417 ==
LOC: ED 03:18 → UNDOADMOB 05:41 → MED SURG 05:41 → INTOOBSV 05:52 → MED SURG 05:52 → OBSVTOIN 05:52
PROVIDERS: ADMIT General Practice; ATTEND General Practice
PROC: 0FT44ZZ Resection of Gallbladder, Percutaneous Endoscopic Approach (ICD-10-PCS; principal; 2016-12-24)
DX: K80.00 Calculus of gallbladder with acute cholecystitis without obstruction (principal); J18.1 Lobar pneumonia, unspecified organism; E11.9 Type 2 diabetes mellitus without complications; I50.9 Heart failure, unspecified; Z79.4 Long term (current) use of insulin; I10 Essential (primary) hypertension; M19.90 Unspecified osteoarthritis, unspecified site; Z85.46 Personal history of malignant neoplasm of prostate
CPT/HCPCS: 00790; 36415; 71010; 71020; 74176; 80053; 82150; 82962; 83036; 83605; 83690; 83735; 84484; 85025; 85027; 88304; 93306; 94640; 94761; 94762; 96360; 96374; 99100; 99140; 99285; J0330; J0690; J0694; J1100; J1170; J1940; J1956; J2270; J2405; J2704; J2920; J3010; A9270-GY

== ENCOUNTER 2017-01-20 22:59 | Emergency (ER) | payer MEDICARE, BC ==
--- NOTE | 2017-01-20 23:24 | ERPHSYRPT ---
- History of Present Illness Time Seen by Provider: 01/20/17 23:21 Historian: patient Exam Limitations: no limitations Physician History: c/o pain in right lower quadrant since AM. patient has recent gall bladder surgery 3 weeks ago Timing/Duration: today Quality: cramping Abdominal Pain Onset Location: RLQ Pain Radiation: no radiation Severity of Pain-Max: mild Severity of Pain-Current: mild Modifying Factors: Improves With: nothing Allergies/Adverse Reactions: iodine Allergy (Verified 01/20/17 23:27) Sulfa (Sulfonamide Antibiotics) Allergy (Verified 01/20/17 23:27) Home Medications: Amlodipine Besylate/Benazepril [Amlodipine-Benazepril 10-20 mg] 1 each PO DAILY 12/24/16 [History] Aspirin 81 mg PO DAILY 12/24/16 [History] Fenofibrate,Micronized [Fenofibrate] 134 mg PO DAILY 12/24/16 [History] Metoprolol Tartrate 100 mg PO BID 12/24/16 [History] Simvastatin 20 mg PO DAILY 12/24/16 [History] Triamterene/Hydrochlorothiazid [Triamterene-Hctz 37.5-25 mg Cp] 1 each PO DAILY 12/24/16 [History] Hx Tetanus, Diphtheria Vaccination/Date Given: Yes Hx Influenza Vaccination/Date Given: Yes Hx Pneumococcal Vaccination/Date Given: Yes - Review of Systems Constitutional: No Fever, No Chills Eyes: No Symptoms Ears, Nose, & Throat: No Symptoms Respiratory: No Cough, No Dyspnea Cardiac: No Chest Pain, No Edema, No Syncope Abdominal/Gastrointestinal: Abdominal Pain (right lower quadrant), No Nausea, No Vomiting, No Diarrhea Genitourinary Symptoms: No Dysuria Musculoskeletal: No Back Pain, No Neck Pain Skin: No Rash Neurological: No Dizziness, No Focal Weakness, No Sensory Changes Psychological: No Symptoms Endocrine: No Symptoms All Other Systems: Reviewed and Negative - Past Medical History Pertinent Past Medical History: Yes Neurological History: Migraines ENT History: Cataracts Cardiac History: High Cholesterol, Hypertension Respiratory History: No Pertinent History Endocrine Medical History: No Pertinent History Musculoskeletal History: Arthritis GI Medical History: No Pertinent History History: No Pertinent History Psycho-Social History: No Pertinent History Male Reproductive Disorders: Prostate Cancer - Past Surgical History Past Surgical History: Yes Neuro Surgical History: No Pertinent History Cardiac: No Pertinent History Respiratory: No Pertinent History Gastrointestinal: No Pertinent History Genitourinary: No Pertinent History Musculoskeletal: Other Male Surgical History: Prostate Surgery Other Surgical History: rt thumb reattatched, - Social History Smoking Status: Former smoker Exposure to second hand smoke: No Drug Use: none Patient Lives Alone: Yes - Nursing Vital Signs Nursing Vital Signs: Initial Vital Signs Temperature 97.8 F Temperature Source Oral Pulse Rate 76 Respiratory Rate 18 Blood Pressure [Right Arm] 165/88 Pain Intensity 4 - Physical Exam General Appearance: no apparent distress, alert Eye Exam: PERRL/EOMI, eyes nml inspection Ears, Nose, Throat Exam: normal ENT inspection, pharynx normal, moist mucous membranes Neck Exam: normal inspection, non-tender, supple, full range of motion Respiratory Exam: normal breath sounds, lungs clear, No respiratory distress Cardiovascular Exam: regular rate/rhythm, normal heart sounds Gastrointestinal/Abdomen Exam: soft, normal bowel sounds, tenderness (right lower quadrant), No mass Back Exam: normal inspection, normal range of motion, No CVA tenderness, No vertebral tenderness Extremity Exam: normal inspection, normal range of motion, pelvis stable Neurologic Exam: alert, oriented x 3, cooperative, normal mood/affect, nml cerebellar function, sensation nml, No motor deficits Skin Exam: normal color, warm, dry - Course Nursing assessment & vital signs reviewed: Yes Ordered Tests: Active Orders 24 hr Category Date Time Status ABDOMEN AND PELVIS W/0 CONTRAS [CT] Stat Exams 01/20/17 23:21 Taken - Progress Progress: improved, pain not gone completely Counseled pt/family regarding: diagnosis, need for follow-up, rad results - Departure Time of Disposition: 00:18 Departure Disposition: Home Clinical Impression: S/P laparoscopic cholecystectomy, Abdominal pain, acute, right lower quadrant Condition: Stable Critical Care Time: Yes Critical Care Time(excluding separately billable procedures): 30-74 minutes Referrals: MANNY KINNEY MD [Primary Care Provider] - Instructions: Abdominal Pain-Adult Additional Instructions: ABDOMINAL PAIN 1. There are several different causes for abdominal pain, some of which may not be able to be identified on initial examination. 2. The important thing to remember is that bodily functions can change in a short period of time. If you notice any of the following symptoms, return to the emergency department or consult your doctor immediately: A. Worsening pain or no improvement in the next 12 hours. B. Increasing, severe abdominal pain C. Blood in stool D. Black stools E. Persistent vomiting F. Fever or chills or other symptoms Please follow the instructions given to you. Please take your medication as prescribed if given. If symptoms recur or get worse, come back to the emergency room if you cannot reach your primary care physician, or call your primary care physician for an appointment. Again if your symptoms get worse, come back to the emergency room. Thanks for visiting emergency room, and let us take care of you. Prescriptions: Dicyclomine HCl [Bentyl] 10 mg PO TIDPRN #20 capsule
[2017-01-21 00:28] VITALS: BP 142/98; PULSE 74; O2SAT 97
--- NOTE | 2017-01-21 08:35 | XRAY ---
Indication: Right upper and lower quadrant pain. Status post cholecystectomy. History of prostate cancer. Multiple contiguous axial images obtained through the abdomen and pelvis without contrast as ordered. Comparison: December 24, 2016. Lung bases remaining essentially clear. Heart is not enlarged. Stomach is distended with food. Noncontrasted stomach and bowel loops again appear nonobstructed. Normal appendix. Minimal scattered colonic diverticulosis without diverticulitis. Status post cholecystectomy. No free fluid/air. Stable 2.6 cm medial left lobe hepatic hypodense lesion favored to be benign given stability over the years. Also stable fatty liver, calcified splenic granulomas, bilateral renal cysts, and previous prostatectomy. Remaining pancreas, adrenal glands, ureters, and bladder appear unremarkable. Moderate aortoiliac calcifications without AAA. Osseous structures intact again with moderate degenerative changes throughout the spine. Impression: 1. Status post cholecystectomy. No complications. 2. Stable colonic diverticulosis, benign left lobe hepatic hypodense lesion, fatty liver, bilateral renal cysts, and calcified splenic granulomas. Comment: Preliminary interpretation was made by [facility]. No discrepancy. CTDI 23.68
== END 2017-01-21 00:38 | disposition home or self-care (01) ==
LOC: ED 22:59
DX: R10.31 Right lower quadrant pain (principal); Z98.890 Other specified postprocedural states; I10 Essential (primary) hypertension; E78.00 Pure hypercholesterolemia, unspecified; Z79.899 Other long term (current) drug therapy
CPT/HCPCS: 74176; 99283

== ENCOUNTER 2019-01-18 19:45 | Emergency (ER) | payer MEDICARE, BC ==
[2019-01-18 20:38] LABS: BASOPHIL % 0.1 % (0.0-0.4); Basophil (Absolute #) 0.01 (0-0.4); Eosinophil % 2.1 % (0.00-5.0); Eosinophil (Absolute #) 0.15 (0-0.5); Granulocyte Absolute (ANC) 4.28 (1.4-6.9); Granulocytes % 59.4 % (36.0-66.0); Hematocrit 46.7 % (42-50); Lymphocyte (Absolute #) 2.25 (1.0-4.6); Lymphocytes % 31.3 % (24.0-44.0); Mean Corpuscular Hemoglobin 29.8 pg (26-32); Mean Corpuscular Hgb Concent. 34.3 g/dl (32-36); Mean Platelet Volume 11.6 fl (6-9.5); Monocyte (Absolute #) 0.51 (0.0-1.3); Monocytes % 7.1 % (0.0-12.0); Platelet Count 198 K/mm3 (150-450); Red Blood Count 5.37 M/mm3 (4.1-5.6); Red Cell Distribution Width 13.8 % (11.5-14.0); White Blood Count 7.2 K/mm3 (4.0-10.5)
[2019-01-18 20:43] LABS: Appearance CLEAR (CLEAR); Bilirubin NEGATIVE (NEGATIVE); Blood SMALL Ery/ul (0-5); Glucose NEGATIVE (NEGATIVE); Ketones NEGATIVE (NEGATIVE); Leukocyte Esterase NEGATIVE (NEGATIVE); Nitrite NEGATIVE (NEGATIVE); Protein,Urine Dip NEGATIVE (Negative); Specific Gravity 1.005 (1.005-1.025); Urobilinogen NEGATIVE mg/dL (0-1)
[2019-01-18 20:44] LABS: ALBUMIN 4.2 g/dL (3.5-5.0); ALKALINE PHOSPHATASE 84 U/L (38-126); AMYLASE 92 U/L (30-110); ANION GAP 17.5 MEQ/L (5-15); BLOOD UREA NITROGEN 21 mg/dL (9-20); CHLORIDE 103 mmol/L (98-107); Calcium 10.1 mg/dL (8.4-10.2); Carbon Dioxide 22 mmol/L (22-30); Creatinine 1 0.89 mg/dL (0.66-1.25); Glucose 175 mg/dL (74-106); LIPASE 214 U/L (23-300); Potassium 3.9 mmol/L (3.5-5.1); SGOT/AST 35 U/L (17-59); SGPT/ALT 27 U/L (0-50); SODIUM 138 mmol/L (137-145); Total Protein 7.2 g/dL (6.3-8.2)
[2019-01-18 20:53] LABS: Bacteria NONE SEEN /HPF (NEGATIVE)
[2019-01-18 20:56] LABS: Lactic Acid 2.1 (0.4-2.0)
--- NOTE | 2019-01-18 21:49 | ERPHSYRPT ---
- History of Present Illness Time Seen by Provider: 01/18/19 20:10 Historian: patient Exam Limitations: no limitations Patient Subjective Stated Complaint: pt states he has been having intermittent lower abd pain radiating around to rt side of back Triage Nursing Assessment: pt alert and oriented, answers questions approp. pt ambulatory with steady gait noted. skin pink warm and dry. abd soft and pt reports tenderness in rt lower abd with bowel sounds in all 4 quads. Physician History: 73 y/o white male, who some time ago underwent a cholecystectomy, presents with right side abd pain. sx for 5 days. pt has had a prostate surgery 15 years ago. sx seem to be worse after eating although no n/v/d and pt has been eating well. pt had a hamburger at 1700 today. Timing/Duration: day(s) (5), intermittent, worse Quality: aching, fullness, pressure Abdominal Pain Onset Location: RUQ, RLQ Pain Radiation: flank (right flank) Severity of Pain-Max: mild Severity of Pain-Current: mild Modifying Factors: Improves With: eating (may sl worsen) Associated Symptoms: No chest pain, No diarrhea, No loss of appetite, No nausea , No vomiting Previous symptoms: no prior history Allergies/Adverse Reactions: iodine Allergy (Verified 01/18/19 20:04) Sulfa (Sulfonamide Antibiotics) Allergy (Verified 01/18/19 20:04) Home Medications: Amlodipine Besylate/Benazepril [Amlodipine-Benazepril 10-20 mg] 1 each PO DAILY 12/24/16 [History] Aspirin 81 mg PO DAILY 12/24/16 [History] Fenofibrate,Micronized [Fenofibrate] 134 mg PO DAILY 12/24/16 [History] Metoprolol Tartrate 100 mg PO BID 12/24/16 [History] Simvastatin 20 mg PO DAILY 12/24/16 [History] Triamterene/Hydrochlorothiazid [Triamterene-Hctz 37.5-25 mg Cp] 1 each PO DAILY 12/24/16 [History] Hx Tetanus, Diphtheria Vaccination/Date Given: Yes Hx Influenza Vaccination/Date Given: Yes Hx Pneumococcal Vaccination/Date Given: Yes Immunizations Up to Date: Yes - Review of Systems Constitutional: No Symptoms Eyes: No Symptoms Ears, Nose, & Throat: No Symptoms Respiratory: No Symptoms Cardiac: No Symptoms Abdominal/Gastrointestinal: Abdominal Pain (right side), No Nausea, No Vomiting , No Diarrhea Genitourinary Symptoms: No Symptoms Musculoskeletal: No Symptoms Skin: No Symptoms Neurological: No Symptoms Psychological: No Symptoms Endocrine: No Symptoms Hematologic/Lymphatic: No Symptoms Immunological/Allergic: No Symptoms All Other Systems: Reviewed and Negative - Past Medical History Pertinent Past Medical History: Yes Neurological History: Migraines ENT History: Cataracts Cardiac History: High Cholesterol, Hypertension Respiratory History: No Pertinent History Endocrine Medical History: No Pertinent History, Diabetes Type II Musculoskeletal History: Arthritis GI Medical History: No Pertinent History History: No Pertinent History Psycho-Social History: No Pertinent History Male Reproductive Disorders: Prostate Cancer - Past Surgical History Past Surgical History: Yes Neuro Surgical History: No Pertinent History Cardiac: No Pertinent History Respiratory: No Pertinent History Gastrointestinal: Cholecystectomy Genitourinary: No Pertinent History Musculoskeletal: Other Male Surgical History: Prostate Surgery Other Surgical History: rt thumb reattatched, - Social History Smoking Status: Former smoker Exposure to second hand smoke: No Drug Use: none Patient Lives Alone: Yes - Nursing Vital Signs Nursing Vital Signs: Initial Vital Signs Temperature 97.9 F 01/18/19 19:53 Pulse Rate 71 01/18/19 19:53 Respiratory Rate 18 01/18/19 19:53 Blood Pressure 178/77 01/18/19 19:53 O2 Sat by Pulse Oximetry 96 01/18/19 19:53 Pain Scale Pain Intensity 4 - Physical Exam General Appearance: no apparent distress, alert Eye Exam: PERRL/EOMI, eyes nml inspection Ears, Nose, Throat Exam: normal ENT inspection, moist mucous membranes Neck Exam: normal inspection, non-tender, supple, full range of motion Respiratory Exam: normal breath sounds, lungs clear, No chest tenderness, No respiratory distress, No airway intact Cardiovascular Exam: regular rate/rhythm, normal heart sounds, normal peripheral pulses Gastrointestinal/Abdomen Exam: soft, normal bowel sounds, tenderness (mild right side), No guarding, No rebound Rectal Exam: not done Back Exam: normal inspection, normal range of motion, CVA tenderness (mild right side), No vertebral tenderness Extremity Exam: normal inspection, normal range of motion, pelvis stable Neurologic Exam: alert, oriented x 3, cooperative, director of teaching and learning II-XII nml as tested Skin Exam: normal color, warm, dry Lymphatic Exam: No adenopathy SpO2: 97 O2 Delivery: Room Air - Course Nursing assessment & vital signs reviewed: Yes Ordered Tests: Active Orders 24 hr Category Date Time Status ACCUCHECK [Accucheck] STAT Care 01/18/19 20:03 Active IV Insertion STAT Care 01/18/19 20:03 Active ABDOMEN AND PELVIS W/0 CONTRAS [CT] Stat Exams 01/18/19 20:28 Taken AMYLASE Stat Lab 01/18/19 19:20 Completed CBC W DIFF Stat Lab 01/18/19 19:20 Completed CMP Stat Lab 01/18/19 19:20 Completed LIPASE Stat Lab 01/18/19 19:20 Completed Lactic Acid Stat Lab 01/18/19 20:50 Results UA W/RFX UR CULTURE Stat Lab 01/18/19 19:20 Completed Lab/Rad Data: Laboratory Result Diagrams 01/18/19 19:20 01/18/19 19:20 Laboratory Results 01/18/19 01/18/19 01/18/19 Range/Units 20:50 19:20 19:20 WBC (4.0-10.5) K/mm3 RBC (4.1-5.6) M/mm3 Hgb (12.5-18.0) gm/dl Hct (42-50) % MCV (78-100) fl MCH (26-32) pg MCHC (32-36) g/dl RDW (11.5-14.0) % Plt Count (150-450) K/mm3 MPV (6-9.5) fl Gran % (36.0-66.0) % Eos # (Auto) (0-0.5) Absolute Lymphs (auto) (1.0-4.6) Absolute Monos (auto) (0.0-1.3) Lymphocytes % (24.0-44.0) % Monocytes % (0.0-12.0) % Eosinophils % (0.00-5.0) % Basophils % (0.0-0.4) % Absolute Granulocytes (1.4-6.9) Basophils # (0-0.4) Sodium 138 (137-145) mmol/L Potassium 3.9 (3.5-5.1) mmol/L Chloride 103 (98-107) mmol/L Carbon Dioxide 22 (22-30) mmol/L Anion Gap 17.5 H (5-15) MEQ/L BUN 21 H (9-20) mg/dL Creatinine 0.89 (0.66-1.25) mg/dL Estimated GFR > 60.0 ML/MIN Glucose 175 H (74-106) mg/dL Lactic Acid 2.1 H (0.4-2.0) Calcium 10.1 (8.4-10.2) mg/dL Total Bilirubin 0.40 (0.2-1.3) mg/dL AST 35 (17-59) U/L ALT 27 (0-50) U/L Alkaline Phosphatase 84 (38-126) U/L Serum Total Protein 7.2 (6.3-8.2) g/dL Albumin 4.2 (3.5-5.0) g/dL Amylase 92 (30-110) U/L Lipase 214 (23-300) U/L Urine Color STRAW (YELLOW) Urine Appearance CLEAR (CLEAR) Urine pH 6.0 (5-6) Ur Specific [place] 1.005 (1.005-1.025) Urine Protein NEGATIVE (Negative) Urine Ketones NEGATIVE (NEGATIVE) Urine Blood SMALL (0-5) Prashant/ul Urine Nitrite NEGATIVE (NEGATIVE) Urine Bilirubin NEGATIVE (NEGATIVE) Urine Urobilinogen NEGATIVE (0-1) mg/dL Ur Leukocyte Esterase NEGATIVE (NEGATIVE) Urine WBC (Auto) NONE (0-5) /HPF Urine RBC (Auto) NONE (0-2) /HPF U Epithel Cells (Auto) NONE (FEW) /HPF Urine Bacteria (Auto) NONE SEEN (NEGATIVE) /HPF Urine Culture Reflexed NO (NO) Urine Glucose NEGATIVE (NEGATIVE) mg/dL 01/18/19 Range/Units 19:20 WBC 7.2 (4.0-10.5) K/mm3 RBC 5.37 (4.1-5.6) M/mm3 Hgb 16.0 (12.5-18.0) gm/dl Hct 46.7 (42-50) % MCV 87.0 (78-100) fl MCH 29.8 (26-32) pg MCHC 34.3 (32-36) g/dl RDW 13.8 (11.5-14.0) % Plt Count 198 (150-450) K/mm3 MPV 11.6 H (6-9.5) fl Gran % 59.4 (36.0-66.0) % Eos # (Auto) 0.15 (0-0.5) Absolute Lymphs (auto) 2.25 (1.0-4.6) Absolute Monos (auto) 0.51 (0.0-1.3) Lymphocytes % 31.3 (24.0-44.0) % Monocytes % 7.1 (0.0-12.0) % Eosinophils % 2.1 (0.00-5.0) % Basophils % 0.1 (0.0-0.4) % Absolute Granulocytes 4.28 (1.4-6.9) Basophils # 0.01 (0-0.4) Sodium (137-145) mmol/L Potassium (3.5-5.1) mmol/L Chloride (98-107) mmol/L Carbon Dioxide (22-30) mmol/L Anion Gap (5-15) MEQ/L BUN (9-20) mg/dL Creatinine (0.66-1.25) mg/dL Estimated GFR ML/MIN Glucose (74-106) mg/dL Lactic Acid (0.4-2.0) Calcium (8.4-10.2) mg/dL Total Bilirubin (0.2-1.3) mg/dL AST (17-59) U/L ALT (0-50) U/L Alkaline Phosphatase (38-126) U/L Serum Total Protein (6.3-8.2) g/dL Albumin (3.5-5.0) g/dL Amylase (30-110) U/L Lipase (23-300) U/L Urine Color (YELLOW) Urine Appearance (CLEAR) Urine pH (5-6) Ur Specific [place] (1.005-1.025) Urine Protein (Negative) Urine Ketones (NEGATIVE) Urine Blood (0-5) Prashant/ul Urine Nitrite (NEGATIVE) Urine Bilirubin (NEGATIVE) Urine Urobilinogen (0-1) mg/dL Ur Leukocyte Esterase (NEGATIVE) Urine WBC (Auto) (0-5) /HPF Urine RBC (Auto) (0-2) /HPF U Epithel Cells (Auto) (FEW) /HPF Urine Bacteria (Auto) (NEGATIVE) /HPF Urine Culture Reflexed (NO) Urine Glucose (NEGATIVE) mg/dL - Progress Progress: pain not gone completely, re-examined Progress Note: 01/18/19 21:56 ct scan abd/pelvis-no acute process. 01/18/19 22:03 pt refuses narcotics. he will take home a nonnarcotic rx. Counseled pt/family regarding: lab results, diagnosis, need for follow-up, rad results - Departure Departure Disposition: Home Clinical Impression: Abdominal pain Condition: Stable Critical Care Time: No Referrals: MANNY KINNEY MD [Primary Care Provider] - Additional Instructions: drink plenty of fluids. follow up with primary doctor for further management Prescriptions: Tramadol HCl 50 mg [Ultram 50 mg] 50 mg PO TID PRN #15 tablet MDD 3 PRN Reason: Moderate Pain
[2019-01-18 22:09] VITALS: BP 142/73; PULSE 71; O2SAT 95
--- NOTE | 2019-01-18 22:15 | XRAY ---
Indication: Right abdomen/neck pain 5 days. History renal stones. Multiple contiguous axial images obtained through the abdomen and pelvis without contrast as ordered. Comparison: January 20, 2017. Lung bases demonstrates minimal bibasilar dependent atelectasis. No infiltrate or effusion. Heart is not enlarged. Stomach is distended with food. Noncontrasted stomach and bowel loops appear nonobstructed. Normal appendix. Again minimal sigmoid diverticulosis. No free fluid/air. Stable cholecystectomy, prostatectomy, tiny hepatic cyst, bilateral renal cysts, and calcified splenic granulomas. Remaining liver, pancreas, spleen, adrenal glands, kidneys, ureters, and bladder appear unremarkable for noncontrast exam. There remains moderate aortoiliac calcifications without AAA. Osseous structures intact again with degenerative changes throughout the thoracolumbar spine. No ventral or inguinal hernias. Impression: 1. Stable colonic diverticulosis, hepatic cyst, and bilateral renal cysts. 2. No new or acute intra-abdominal/pelvic abnormalities on this noncontrast exam. Comment: Preliminary interpretation was made by [facility]. No critical discrepancy. CTDI 28.15
== END 2019-01-18 22:18 | disposition home or self-care (01) ==
LOC: ED 19:45
DX: R10.30 Lower abdominal pain, unspecified (principal); I10 Essential (primary) hypertension; E11.9 Type 2 diabetes mellitus without complications; M19.90 Unspecified osteoarthritis, unspecified site; Z79.899 Other long term (current) drug therapy
CPT/HCPCS: 36000; 36415; 74176; 80053; 81001; 82150; 82962; 83605; 83690; 85025; 99284

== ENCOUNTER 2019-07-07 00:02 | Emergency (ER) | payer MEDICARE, BC ==
[2019-07-07] MEDS ORDERED: TORAdol 30 mg Injection IV ONE (00:27)
--- NOTE | 2019-07-07 00:27 | ERPHSYRPT ---
- History of Present Illness Time Seen by Provider: 07/07/19 00:22 Source: patient, family Exam Limitations: no limitations Physician History: pt developed acute pain in left testicle with swelling and erythema this pm and some urinary symptoms. No hx of discharge; no N/V hx is notable for previous radical prostatectomy for prostate cancer which is in remission for several years and followed by PSAs. Timing/Duration: today Activites at Onset: none Quality: pressure, sharpness, throbbing Onset Location: left testicle Pain Radiation: none Severity of Pain-Max: moderate Severity of Pain-Current: moderate Associated Symptoms: dysuria Prior abdominal problems: none Sexual intercourse history: non-contributory Allergies/Adverse Reactions: iodine Allergy (Verified 07/07/19 00:30) Sulfa (Sulfonamide Antibiotics) Allergy (Verified 07/07/19 00:30) Home Medications: Amlodipine Besylate/Benazepril [Amlodipine-Benazepril 10-20 mg] 1 each PO DAILY 12/24/16 [History] Aspirin 81 mg PO DAILY 12/24/16 [History] Fenofibrate,Micronized [Fenofibrate] 134 mg PO DAILY 12/24/16 [History] Metoprolol Tartrate 100 mg PO BID 12/24/16 [History] Simvastatin 20 mg PO DAILY 12/24/16 [History] Triamterene/Hydrochlorothiazid [Triamterene-Hctz 37.5-25 mg Cp] 1 each PO DAILY 12/24/16 [History] Hx Tetanus, Diphtheria Vaccination/Date Given: Yes Hx Influenza Vaccination/Date Given: Yes Hx Pneumococcal Vaccination/Date Given: Yes - Past Medical History Pertinent Past Medical History: Yes Neurological History: Migraines ENT History: Cataracts Cardiac History: High Cholesterol, Hypertension Respiratory History: No Pertinent History Endocrine Medical History: No Pertinent History, Diabetes Type II Musculoskeletal History: Arthritis GI Medical History: No Pertinent History History: No Pertinent History Psycho-Social History: No Pertinent History Male Reproductive Disorders: Prostate Cancer - Past Surgical History Past Surgical History: Yes Neuro Surgical History: No Pertinent History Cardiac: No Pertinent History Respiratory: No Pertinent History Gastrointestinal: Cholecystectomy Genitourinary: No Pertinent History Musculoskeletal: Other Male Surgical History: Prostate Surgery Other Surgical History: rt thumb reattatched, - Social History Smoking Status: Former smoker Exposure to second hand smoke: No Drug Use: none Patient Lives Alone: Yes - Review of Systems Constitutional: No Fever, No Chills Eyes: No Symptoms Ears, Nose, & Throat: No Symptoms Respiratory: No Cough, No Dyspnea Cardiac: No Chest Pain, No Edema, No Syncope Abdominal/Gastrointestinal: No Abdominal Pain, No Nausea, No Vomiting, No Diarrhea Genitourinary Symptoms: Dysuria, Other (left testicluar pain and swelling) Musculoskeletal: No Back Pain, No Neck Pain Skin: No Rash Neurological: No Dizziness, No Focal Weakness, No Sensory Changes Psychological: No Symptoms Endocrine: No Symptoms Hematologic/Lymphatic: No Symptoms Immunological/Allergic: No Symptoms All Other Systems: Reviewed and Negative - Nursing Vital Signs Nursing Vital Signs: Initial Vital Signs Temperature 97.6 F 07/07/19 00:13 Pulse Rate 63 07/07/19 00:13 Respiratory Rate 20 07/07/19 00:13 Blood Pressure 180/70 07/07/19 00:13 O2 Sat by Pulse Oximetry 95 07/07/19 00:13 Pain Scale Pain Intensity 2 - Physical Exam General Appearance: no apparent distress, alert Eye Exam: PERRL/EOMI Ears, Nose, Throat Exam: pharynx normal, moist mucous membranes Neck Exam: normal inspection, supple Respiratory Exam: normal breath sounds, lungs clear Cardiovascular Exam: regular rate/rhythm, No edema Gastrointestinal/Abdomen Exam: soft, No tenderness Rectal Exam: deferred Male Genital Exam: testicular tenderness (L), scrotal swellling Back Exam: normal inspection, No CVA tenderness Extremity Exam: normal inspection, normal range of motion, No pedal edema Neurologic Exam: alert, oriented x 3, cooperative, sensation nml, No motor deficits Skin Exam: normal color, warm, dry, No rash - Course Nursing assessment & vital signs reviewed: Yes - Radiology Ultrasound Exam Scrotal Ultrasound: No Torsion/Nml Flow, Other (left epidydimitis with orchitis) Ordered Tests: Active Orders 24 hr Category Date Time Status IV Insertion STAT Care 07/07/19 00:27 Active TESTICLE [US] Stat Exams 07/07/19 00:29 Taken CBC W DIFF Stat Lab 07/07/19 00:40 Completed CMP Stat Lab 07/07/19 00:40 Completed UA W/RFX UR CULTURE Stat Lab 07/07/19 01:50 Completed Medication Summary Generic Name Dose Route Start Last Admin Trade Name Freq PRN Reason Stop Dose Admin Sodium Chloride 1,000 mls @ 100 mls/hr 07/07/19 00:30 07/07/19 01:18 Sodium Chloride 0.9% 1000 Ml IV 08/06/19 00:29 100 mls/hr .Q10H ELODIA Administration Levofloxacin/Dextrose 750 mg in 150 mls @ 100 mls/hr 07/07/19 02:02 07/07/19 02:07 Levofloxacin 750mg/150ml D5w IV 07/07/19 03:31 100 mls/hr STAT ONE Administration Discontinued Medications Generic Name Dose Route Start Last Admin Trade Name Freq PRN Reason Stop Dose Admin Doxycycline Hyclate 100 mg 07/07/19 02:03 07/07/19 02:08 Vibramycin 100 Mg PO 07/07/19 02:04 100 mg STAT ONE Administration Doxycycline Hyclate Confirm 07/07/19 02:04 Vibramycin 100 Mg Administered 07/07/19 02:05 Dose 100 mg .ROUTE .STK-MED ONE Ceftriaxone Sodium/Dextrose 1 g in 50 mls @ 100 mls/hr 07/07/19 00:30 01:30 Rocephin 1 Gm-D5w 50 Ml Bag IV 07/07/19 00:59 100 ml/hr STAT ONE 100 mls/hr Administration Ceftriaxone Sodium/Dextrose Confirm 07/07/19 00:49 Rocephin 1 Gm-D5w 50 Ml Bag Administered 07/07/19 00:50 Dose 1 g in 50 mls @ ud IV .STK-MED ONE Levofloxacin/Dextrose Confirm 07/07/19 02:04 Levofloxacin 750mg/150ml D5w Administered 07/07/19 02:05 Dose 750 mg in 150 mls @ ud IV .STK-MED ONE Ketorolac Tromethamine 30 mg 07/07/19 00:27 07/07/19 01:21 Toradol 30 Mg Injection IV 07/07/19 00:28 30 mg STAT ONE Administration Ketorolac Tromethamine Confirm 07/07/19 00:49 Toradol 30 Mg Injection Administered 07/07/19 00:50 Dose 30 mg .ROUTE .STK-MED ONE Lab/Rad Data: Laboratory Result Diagrams 07/07/19 00:40 07/07/19 00:40 Laboratory Results 07/07/19 07/07/19 07/07/19 Range/Units 01:50 00:40 00:40 WBC 7.9 (4.0-10.5) K/mm3 RBC 5.23 (4.1-5.6) M/mm3 Hgb 15.8 (12.5-18.0) gm/dl Hct 45.7 (42-50) % MCV 87.4 (78-100) fl MCH 30.2 (26-32) pg MCHC 34.6 (32-36) g/dl RDW 13.5 (11.5-14.0) % Plt Count 199 (150-450) K/mm3 MPV 11.1 H (6-9.5) fl Gran % 57.2 (36.0-66.0) % Eos # (Auto) 0.27 (0-0.5) Absolute Lymphs (auto) 2.37 (1.0-4.6) Absolute Monos (auto) 0.72 (0.0-1.3) Lymphocytes % 30.0 (24.0-44.0) % Monocytes % 9.1 (0.0-12.0) % Eosinophils % 3.4 (0.00-5.0) % Basophils % 0.3 (0.0-0.4) % Absolute Granulocytes 4.53 (1.4-6.9) Basophils # 0.02 (0-0.4) Sodium 140 (137-145) mmol/L Potassium 4.2 (3.5-5.1) mmol/L Chloride 104 (98-107) mmol/L Carbon Dioxide 24 (22-30) mmol/L Anion Gap 16.0 H (5-15) MEQ/L BUN 24 H (9-20) mg/dL Creatinine 0.85 (0.66-1.25) mg/dL Estimated GFR > 60.0 ML/MIN Glucose 139 H (74-106) mg/dL Calcium 10.4 H (8.4-10.2) mg/dL Total Bilirubin 0.40 (0.2-1.3) mg/dL AST 22 (17-59) U/L ALT 23 (0-50) U/L Alkaline Phosphatase 78 (38-126) U/L Serum Total Protein 7.1 (6.3-8.2) g/dL Albumin 4.2 (3.5-5.0) g/dL Urine Color YELLOW (YELLOW) Urine Appearance CLEAR (CLEAR) Urine pH 5.0 (5-6) Ur Specific [place] 1.023 (1.005-1.025) Urine Protein 100 (Negative) Urine Ketones NEGATIVE (NEGATIVE) Urine Blood SMALL (0-5) Prashant/ul Urine Nitrite NEGATIVE (NEGATIVE) Urine Bilirubin NEGATIVE (NEGATIVE) Urine Urobilinogen NEGATIVE (0-1) mg/dL Ur Leukocyte Esterase NEGATIVE (NEGATIVE) Urine WBC (Auto) NONE (0-5) /HPF Urine RBC (Auto) NONE (0-2) /HPF U Epithel Cells (Auto) NONE (FEW) /HPF Urine Mucus (Auto) SLIGHT (NEGATIVE) /HPF Urine Culture Reflexed NO (NO) Urine Glucose NEGATIVE (NEGATIVE) mg/dL - Progress Progress: improved, re-examined Progress Note: 07/07/19 02:28 discussed risk of tendon rupture/complications from levaquin with pt in antibiotic choice and he understands and wishes to proceed. Counseled pt/family regarding: lab results, diagnosis, need for follow-up, rad results - Departure Departure Disposition: Home Clinical Impression: Acute epididymitis, Orchitis of left testicle Condition: Good Critical Care Time: No Referrals: MANNY KINNEY MD [Primary Care Provider] - Instructions: Epididymitis (DC) Additional Instructions: there is infection in the left testicle and epidydimus ( tube structure) which will require followup with your DrCalin to make sure it has resolved after treatment and to determine if the Urologist needs to be consulted. This infection can occur on its own, but sometimes other problems in the urinary or testicular system may contribute and need to be found and corrected. Return meantime or see Dr if not improving or other symptoms of concern like fever or vomiting or increasing pain or feeling sick. followup with your dr. on your blood pressure, which was high , but may be partly due to your pain. Prescriptions: Doxycycline Hyclate 100 mg [Vibramycin 100 mg] 100 mg IV BID #30 vial Levofloxacin [Levaquin] 500 mg PO DAILY #10 tablet
[2019-07-07] MEDS ORDERED: Sodium Chloride 0.9% 1000 ML 1,000 ML IV SCH (00:30)
[2019-07-07] MEDS ORDERED: ROCEPHIN 1 Gm-D5w 50 ml Bag** 1 G/50 ML IVPB IV ONE ×2 (00:30→00:49)
[2019-07-07] MEDS ORDERED: TORAdol 30 mg Injection ONE (00:49)
[2019-07-07] MEDS ORDERED: Sodium Chloride 0.9% 1000 ML 1,000 ML ONE (00:49)
[2019-07-07 00:55] LABS: Absolute Neutrophil Ct (ANC) 4.53 (1.4-6.9); BASOPHIL % 0.3 % (0.0-0.4); Basophil (Absolute #) 0.02 (0-0.4); Eosinophil % 3.4 % (0.00-5.0); Eosinophil (Absolute #) 0.27 (0-0.5); Hematocrit 45.7 % (42-50); Hemoglobin 15.8 gm/dl (12.5-18.0); Lymphocyte (Absolute #) 2.37 (1.0-4.6); Mean Cell Volume 87.4 fl (78-100); Mean Corpuscular Hemoglobin 30.2 pg (26-32); Mean Corpuscular Hgb Concent. 34.6 g/dl (32-36); Mean Platelet Volume 11.1 fl (6-9.5); Monocyte (Absolute #) 0.72 (0.0-1.3); Monocytes % 9.1 % (0.0-12.0); Neutrophil % 57.2 % (36.0-66.0); Platelet Count 199 K/mm3 (150-450); Red Blood Count 5.23 M/mm3 (4.1-5.6); Red Cell Distribution Width 13.5 % (11.5-14.0); White Blood Count 7.9 K/mm3 (4.0-10.5)
[2019-07-07 01:08] LABS: ALBUMIN 4.2 g/dL (3.5-5.0); ALKALINE PHOSPHATASE 78 U/L (38-126); BLOOD UREA NITROGEN 24 mg/dL (9-20); CHLORIDE 104 mmol/L (98-107); Calcium 10.4 mg/dL (8.4-10.2); Carbon Dioxide 24 mmol/L (22-30); Creatinine 1 0.85 mg/dL (0.66-1.25); Glucose 139 mg/dL (74-106); Potassium 4.2 mmol/L (3.5-5.1); SGOT/AST 22 U/L (17-59); SGPT/ALT 23 U/L (0-50); SODIUM 140 mmol/L (137-145); Total Protein 7.1 g/dL (6.3-8.2)
[2019-07-07] MEDS ORDERED: LEVOFLOXACIN 750MG/150ML D5W 750 MG/150 ML BAG IV ONE ×2 (02:02→02:04)
[2019-07-07] MEDS ORDERED: Vibramycin 100 MG PO ONE (02:03)
[2019-07-07 02:04] LABS: Appearance CLEAR (CLEAR); Bilirubin NEGATIVE (NEGATIVE); Blood SMALL Ery/ul (0-5); Glucose NEGATIVE (NEGATIVE); Ketones NEGATIVE (NEGATIVE); Leukocyte Esterase NEGATIVE (NEGATIVE); Mucus SLIGHT /HPF (NEGATIVE); Nitrite NEGATIVE (NEGATIVE); Protein,Urine Dip 100 (Negative); Specific Gravity 1.023 (1.005-1.025); Urobilinogen NEGATIVE mg/dL (0-1)
[2019-07-07] MEDS ORDERED: Vibramycin 100 MG ONE (02:04)
[2019-07-07 03:17] VITALS: BP 164/74; PULSE 54; O2SAT 94
--- NOTE | 2019-07-07 08:11 | XRAY ---
Indication: Left scrotal swelling, pain, and erythema. Two-dimensional testicular sonogram performed. Comparison: None Both testicles are homogeneous in echogenicity. Right testicle measures 4.0 x 3.1 x 2.2 cm and the left measures 4.1 x 3.2 x 2.2 cm. Normal color perfusion in the right testicle. Left testicle demonstrates hyperemic color perfusion favoring orchitis. Incidental bilateral peripheral rete ectasia and bilateral spermatoceles. Enlarged left epididymis measuring 2.5 cm in greatest dimension with hyperemic color Doppler flow favors epididymitis. Left scrotum demonstrates moderate slightly echogenic hydrocele presumed reactive. There are also multiple bilateral epididymal cysts, largest on the right measuring 18 mm. Impression: 1. Left scrotum demonstrates enlarged epididymis and hyperemic color perfusion to the epididymis/testicle favoring epididymoorchitis. Moderate reactive hydrocele appears slightly thickened/echogenic. 2. Incidental bilateral epididymal cysts, spermatoceles, and rete ectasia. Comment: Preliminary report was given.
== END 2019-07-07 03:27 | disposition home or self-care (01) ==
LOC: ED 00:02
DX: N45.3 Epididymo-orchitis (principal)
CPT/HCPCS: 36000; 36415; 76870; 80053; 81001; 85025; 96360; 96361; 96365; 96374; 99284; J0696; J1885; J1956; A9270-GY

== ENCOUNTER 2023-09-18 13:53 | Observation (INO) | payer MEDICARE, BC ==
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
[2023-09-18] MEDS ORDERED: Zofran 4 MG/2 ML VIAL IV ONE (17:20)
[2023-09-18] MEDS ORDERED: Sodium Chloride 0.9% 1000 ML 1,000 ML IV STA ×2 (17:20→19:29)
[2023-09-18] MEDS ORDERED: Sodium Chloride 0.9% 1000 ML 1,000 ML ONE ×2 (17:23→19:40)
[2023-09-18] MEDS ORDERED: Zofran 4 MG/2 ML VIAL ONE (17:23)
[2023-09-18 17:37] LABS: Absolute Neutrophil Ct (ANC) 4.97 x10^3/uL (1.4-6.9); BASOPHIL % 0.3 % (0.0-0.4); Basophil (Absolute #) 0.02 x10^3/uL (0-0.4); Eosinophil % 0.9 % (0.00-5.0); Eosinophil (Absolute #) 0.07 x10^3/uL (0-0.5); Hematocrit 51.3 % (42-50); Hemoglobin 16.8 g/dL (12.5-18.0); IMMATURE GRAN # 0.04 x10^3u/L (0.00-0.03); IMMATURE GRAN % 0.5 % (0.00-0.4); Lymphocyte (Absolute #) 2.05 x10^3/uL (1.0-4.6); Mean Cell Volume 93.3 fL (78-100); Mean Corpuscular Hemoglobin 30.5 pg (26-32); Mean Corpuscular Hgb Concent. 32.7 g/dL (32-36); Mean Platelet Volume 11.3 fL (7.5-11.0); Monocyte (Absolute #) 0.73 x10^3/uL (0.0-1.3); Monocytes % 9.3 % (0.0-12.0); Platelet Count 203 x10^3/uL (150-450); Red Cell Distribution Width 13.2 % (11.5-14.0); White Blood Count 7.9 x10^3/uL (4.0-10.5)
[2023-09-18 17:55] LABS: ALBUMIN 4.8 g/dL (3.5-5.0); ANION GAP 18.8 MEQ/L (5-15); Calcium 10.4 mg/dL (8.4-10.2); Creatinine 1 2.02 mg/dL (0.66-1.25); EST GLOMERULAR FILTRATION RATE 33.1 ML/MIN; Potassium 4.7 mmol/L (3.5-5.1); Total Protein 8.1 g/dL (6.3-8.2)
[2023-09-18 18:14] LABS: Appearance Turbid (Clear); Bacteria None Seen /HPF (None Seen); Bilirubin Small (Negative); Blood Negative (Negative); Epithelial Cells None Seen /HPF (None Seen); Glucose, Urine Negative (Negative); Ketones Trace (Negative); Leukocyte Esterase Trace (Negative); Nitrite Negative (Negative); Protein,Urine Dip 30 (Negative); RBC 0-2 /HPF (0-5); Specific Gravity >=1.030 (1.005-1.030); WBC 0-2 /HPF (0-5)
[2023-09-18 18:15] LABS: ADD URINE CULTURE? YES (NO); Amourphous Crystal Many /HPF (None Seen); Hyaline Casts 0-2 /LPF (0-2)
--- NOTE | 2023-09-18 19:02 | XRAY ---
Indication: Pain. Two-dimensional sonogram and color Doppler imaging major venous vessels of left leg performed. Comparison: None No thrombus seen deep venous vessels left leg including greater saphenous vein. Veins demonstrate normal compressibility. Venous waveforms are normal with and without augmentation. Targeted ultrasound mid calf is negative for focal solid/cystic mass or abnormal fluid collection. Impression: Left leg negative for DVT. Comment: Preliminary report was given.
[2023-09-18] MEDS ORDERED: Zofran 4 MG/2 ML VIAL IV PRN (19:29)
[2023-09-18 20:44] LABS: INFLUENZA A NEGATIVE (NEGATIVE); INFLUENZA B NEGATIVE (NEGATIVE); RESPIRATORY SYNCTIAL VIRUS NEGATIVE (NEGATIVE); SARS-CoV-2 Xpert Express NEGATIVE (NEGATIVE)
--- NOTE | 2023-09-18 20:53 | XRAY ---
CLINICAL HISTORY:pain COMPARISON:None. TECHNIQUE:CT of the abdomen and pelvis was performed with axial images as well as sagittal and coronal reconstruction images without intravenous contrast. FINDINGS: Basal thoracic cuts: right lung lower lobe tiny calcified pulmonary nodule. Abdomen: The liver is normal in size. No focal or diffuse parenchymal abnormality. The portal vein, intrahepatic biliary radicals, and the bile ducts are normal. The spleen shows tiny granulomatous calcified foci. The pancreas, and adrenal glands are unremarkable. The kidneys are normal in size and shape. No calculi or hydronephrosis. Bilateral renal multiple cortical cysts are seen. The gallbladder is surgically removed with surgical clips seen. There is no evidence of significant mesenteric or retroperitoneal lymph node enlargement. Stomach and bowel: no abnormality detected. The appendix is not visualized. Pelvis: The urinary bladder is unremarkable. The prostate is not seen, likley surgically removed. No evidence of pelvic lymphadenopathy. Skeletal system: No suspicious bony lesion detected. Degenerative changes are seen in the spine. IMPRESSION: 1. No acute intra-abdominal and pelvis abnormality. 2. Bilateral renal multiple cortical cysts are seen. For assessment and grading, post-contrast is indicated. 3. Other findings as described. Electronically Signed by: Julius Guidry MD. (09/18/2023 20:48:21 EST)
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
[2023-09-18] MEDS ORDERED: Sodium Bicarbonate 50 MEQ/50 ML VIAL*** 150 MEQ in Dextrose 5%/Water IV Soln. 1000 ML 1... IV SCH (21:00)
[2023-09-18] MEDS ORDERED: SODIUM BICARBONATE 50 MEQ/50 ML ABBOJECT IV ONE ×2 (21:38→21:39)
[2023-09-18] MEDS ORDERED: Dextrose 5%/Water IV Soln. 1000 ML 1,000 ML IV ONE (21:38)
[2023-09-18] MEDS: Sodium Bicarbonate 50 MEQ/50 ML VIAL*** 150 MEQ in Dextrose 5%/Water IV Soln. 1000 ML 8... IV SCH (22:07)
[2023-09-18] MEDS: TYLENOL 325 MG PO PRN (23:15)
[2023-09-19] MEDS ORDERED: MORPHINE SULFATE 2 MG INJ IV PRN (01:16)
[2023-09-19 04:38] LABS: Hematocrit 44.3 % (42-50); Hemoglobin 14.7 g/dL (12.5-18.0); Mean Cell Volume 90.6 fL (78-100); Mean Corpuscular Hemoglobin 30.1 pg (26-32); Mean Corpuscular Hgb Concent. 33.2 g/dL (32-36); Mean Platelet Volume 11.5 fL (7.5-11.0); Platelet Count 182 x10^3/uL (150-450); Red Blood Count 4.89 x10^6/uL (4.1-5.6); Red Cell Distribution Width 13.2 % (11.5-14.0); White Blood Count 7.6 x10^3/uL (4.0-10.5)
[2023-09-19 05:09] LABS: ALBUMIN 4.1 g/dL (3.5-5.0); ANION GAP 13.1 MEQ/L (5-15); BILIRUBIN,TOTAL 1.1 mg/dL (0.2-1.3); Calcium 9.1 mg/dL (8.4-10.2); Creatinine 1 1.55 mg/dL (0.66-1.25); EST GLOMERULAR FILTRATION RATE 45.5 ML/MIN; MAGNESIUM 1.5 mg/dL (1.6-2.3); Potassium 3.8 mmol/L (3.5-5.1); Total Protein 6.9 g/dL (6.3-8.2)
[2023-09-19] MEDS: TYLENOL 325 MG PO PRN (05:33)
[2023-09-19 07:04] VITALS: RESP 16
[2023-09-19] MEDS ORDERED: MAG-OX 400 PO ONE (07:47)
[2023-09-19] MEDS ORDERED: HUMALOG SQ PRN (07:53)
[2023-09-19] MEDS: Sodium Bicarbonate 50 MEQ/50 ML VIAL*** 150 MEQ in Dextrose 5%/Water IV Soln. 1000 ML 8... IV SCH (08:52)
[2023-09-19] MEDS ORDERED: Cyclobenzaprine 10 MG PO ONE (09:15)
[2023-09-19] MEDS ORDERED: Toprol Xl 100 MG PO SCH ×2 (10:00→11:00)
[2023-09-19] MEDS ORDERED: NON-FORMULARY ITEM (Metoprolol Tartrate [Metoprolol Tartrate] 100 MG Tablet) PO SCH (10:00)
[2023-09-19] MEDS ORDERED: ECOTRIN 81 MG PO SCH ×2 (10:00)
[2023-09-19] MEDS ORDERED: NON-FORMULARY ITEM (Aspirin [Aspirin] 81 MG Tablet) PO SCH (10:00)
[2023-09-19] MEDS ORDERED: Tricor 145 MG PO SCH (10:00)
[2023-09-19] MEDS ORDERED: Lopressor 50 MG PO SCH (10:00)
[2023-09-19] MEDS ORDERED: FENOFIBRATE MICRONIZED 134 MG PO SCH (10:00)
[2023-09-19] MEDS ORDERED: MEDICATION INTERVENTION MC SCH (10:30)
--- NOTE | 2023-09-19 10:30 | PCM.NOTE ---
Date and Time: 09/19/23 1023 Subjective Assessment: Mr. Carey is a 78 year old male with a past medical history significant for hypertension, hyperlipidemia and diabetes with no previous renal insufficiency. he presented to the hospital on 09/18/23 with complaints of nonspecific abdominal pain, nausea, vomiting and diarrhea for the past week associated with poor PO intake. No fever or chills. Labs were notable for a bicarb of 11, BUN of 52 and creatinine of 2.0. LLE muscle pain for over 1 month and has tried muscle rubs and Tylenol without relief. Venous doppler of lower extremities negative for DVT. He has been taking Triamterene HCT and JEREMIAS inhibitor for bp control. No NSAIDs or recent exposure to intravenous contrast. Does take Metformin for his diabetes. He continues to have diarrhea today. No N/V or abd. pain. 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 Labs have improved since admission. Will recheck labs at noon and if improved will possibly d/c. Denies any further concerns at this time. - Review of Systems Constitutional: No Fever, No Chills Eyes: No Symptoms Ears, Nose, & Throat: No Symptoms Respiratory: No Cough, No Short Of Breath Cardiac: No Chest Pain, No Edema, No Syncope Abdominal/Gastrointestinal: Diarrhea, No Abdominal Pain, No Nausea, No Vomiting Genitourinary Symptoms: No Dysuria Musculoskeletal: No Back Pain, No Neck Pain Skin: No Rash Neurological: No Dizziness, No Focal Weakness, No Sensory Changes Psychological: No Symptoms Endocrine: No Symptoms Hematologic/Lymphatic: No Symptoms Immunological/Allergic: No Symptoms Objective Exam General Appearance: no apparent distress, alert, obese Neurologic Exam: alert, oriented x 3, cooperative, normal mood/affect, nml cerebellar function, sensation nml, No motor deficits Skin Exam: normal color, warm, dry Eye Exam: PERRL, EOMI, eyes nml inspection Ears, Nose, Throat Exam: normal ENT inspection, pharynx normal, moist mucous membranes Neck Exam: normal inspection, non-tender, supple, full range of motion Respiratory Exam: normal breath sounds, lungs clear, No respiratory distress Cardiovascular Exam: regular rate/rhythm, normal heart sounds Gastrointestinal/Abdomen Exam: soft, No tenderness, No mass Extremity Exam: normal inspection, normal range of motion Back Exam: normal inspection, normal range of motion, No CVA tenderness, No vertebral tenderness Male Genitalia Exam: deferred Rectal Exam: deferred OBJECTIVE DATA Vital Signs: Vital Signs - 24 hr Temp Pulse Resp BP Pulse Ox 09/19/23 07:03 96.9 F 64 16 131/58 99 09/19/23 04:00 97.2 F 68 18 130/58 99 09/19/23 00:00 97.1 F 69 16 107/56 96 09/18/23 21:34 96.8 F 62 161/68 94 L 09/18/23 19:28 97 09/18/23 18:00 62 18 144/64 98 09/18/23 16:46 58 L 18 138/74 98 09/18/23 14:52 96.9 F 67 18 104/51 97 Pain Assessment - Last Documented Pain Intensity 9 Pain Scale Used 0-10 Pain Scale Intake and Output: Intake & Output 09/16/23 09/17/23 09/18/23 09/19/23 11:59 11:59 11:59 11:59 Intake Total 60 Balance 60 Weight 103.419 kg Lab Results: Lab Results-Last 24 Hours 09/18/23 09/18/23 09/18/23 Range/Units 17:22 17:36 17:36 WBC 7.9 (4.0-10.5) x10^3/uL RBC 5.50 (4.1-5.6) x10^6/uL Hgb 16.8 (12.5-18.0) g/dL Hct 51.3 H (42-50) % MCV 93.3 (78-100) fL MCH 30.5 (26-32) pg MCHC 32.7 (32-36) g/dL RDW 13.2 (11.5-14.0) % Plt Count 203 (150-450) x10^3/uL MPV 11.3 H (7.5-11.0) fL Gran % 63.0 (36.0-66.0) % Immature Gran % (Auto) 0.5 H (0.00-0.4) % Nucleat RBC Rel Count 0.0 (0.00-0.1) % Eos # (Auto) 0.07 (0-0.5) x10^3/uL Immature Gran # (Auto) 0.04 H (0.00-0.03) x10^3u/L Absolute Lymphs (auto) 2.05 (1.0-4.6) x10^3/uL Absolute Monos (auto) 0.73 (0.0-1.3) x10^3/uL Absolute Nucleated RBC 0.00 (0.00-0.01) x10^3u/L Lymphocytes % 26.0 (24.0-44.0) % Monocytes % 9.3 (0.0-12.0) % Eosinophils % 0.9 (0.00-5.0) % Basophils % 0.3 (0.0-0.4) % Absolute Granulocytes 4.97 (1.4-6.9) x10^3/uL Basophils # 0.02 (0-0.4) x10^3/uL Sodium 136 L (137-145) mmol/L Potassium 4.7 (3.5-5.1) mmol/L Chloride 109 H (98-107) mmol/L Carbon Dioxide 11 L* (22-30) mmol/L Anion Gap 18.8 H (5-15) MEQ/L BUN 52 H (9-20) mg/dL Creatinine 2.02 H (0.66-1.25) mg/dL Estimated GFR 33.1 ML/MIN Glucose 131 H (74-106) mg/dL POC Glucometer (74 to 106) mg/dL Calcium 10.4 H (8.4-10.2) mg/dL Magnesium (1.6-2.3) mg/dL Total Bilirubin 1.00 (0.2-1.3) mg/dL AST 22 (17-59) U/L ALT 18 (0-50) U/L Alkaline Phosphatase 39 (38-126) U/L Serum Total Protein 8.1 (6.3-8.2) g/dL Albumin 4.8 (3.5-5.0) g/dL Amylase 91 (30-110) U/L Lipase 119 (23-300) U/L Urine Color Dark Yellow (Yellow) Urine Appearance Turbid A (Clear) Urine pH 5.0 (4.6-8.0) Ur Specific Adkins >=1.030 A (1.005-1.030) Urine Protein 30 (Negative) Urine Glucose (UA) Negative (Negative) mg/dL Urine Ketones Trace A (Negative) Urine Blood Negative (Negative) Urine Nitrite Negative (Negative) Urine Bilirubin Small A (Negative) Urine Urobilinogen 1.0 A (0.2) mg/dL Ur Leukocyte Esterase Trace A (Negative) U Hyaline Cast (Auto) 0-2 (0-2) /LPF Urine Microscopic RBC 0-2 (0-5) /HPF Urine Microscopic WBC 0-2 (0-5) /HPF Ur Epithelial Cells None Seen (None Seen) /HPF Amorphous Crystals Many A (None Seen) /HPF Urine Bacteria None Seen (None Seen) /HPF Urine Culture Reflexed YES (NO) Influenza Type A Ag (NEGATIVE) Influenza Type B Ag (NEGATIVE) RSV (PCR) (NEGATIVE) SARS-CoV-2 (PCR) (NEGATIVE) 09/18/23 09/19/23 09/19/23 Range/Units 20:06 00:06 04:10 WBC 7.6 (4.0-10.5) x10^3/uL RBC 4.89 (4.1-5.6) x10^6/uL Hgb 14.7 (12.5-18.0) g/dL Hct 44.3 (42-50) % MCV 90.6 (78-100) fL MCH 30.1 (26-32) pg MCHC 33.2 (32-36) g/dL RDW 13.2 (11.5-14.0) % Plt Count 182 (150-450) x10^3/uL MPV 11.5 H (7.5-11.0) fL Gran % (36.0-66.0) % Immature Gran % (Auto) (0.00-0.4) % Nucleat RBC Rel Count (0.00-0.1) % Eos # (Auto) (0-0.5) x10^3/uL Immature Gran # (Auto) (0.00-0.03) x10^3u/L Absolute Lymphs (auto) (1.0-4.6) x10^3/uL Absolute Monos (auto) (0.0-1.3) x10^3/uL Absolute Nucleated RBC (0.00-0.01) x10^3u/L Lymphocytes % (24.0-44.0) % Monocytes % (0.0-12.0) % Eosinophils % (0.00-5.0) % Basophils % (0.0-0.4) % Absolute Granulocytes (1.4-6.9) x10^3/uL Basophils # (0-0.4) x10^3/uL Sodium (137-145) mmol/L Potassium (3.5-5.1) mmol/L Chloride (98-107) mmol/L Carbon Dioxide (22-30) mmol/L Anion Gap (5-15) MEQ/L BUN (9-20) mg/dL Creatinine (0.66-1.25) mg/dL Estimated GFR ML/MIN Glucose (74-106) mg/dL POC Glucometer 134 H (74 to 106) mg/dL Calcium (8.4-10.2) mg/dL Magnesium (1.6-2.3) mg/dL Total Bilirubin (0.2-1.3) mg/dL AST (17-59) U/L ALT (0-50) U/L Alkaline Phosphatase (38-126) U/L Serum Total Protein (6.3-8.2) g/dL Albumin (3.5-5.0) g/dL Amylase (30-110) U/L Lipase (23-300) U/L Urine Color (Yellow) Urine Appearance (Clear) Urine pH (4.6-8.0) Ur Specific Adkins (1.005-1.030) Urine Protein (Negative) Urine Glucose (UA) (Negative) mg/dL Urine Ketones (Negative) Urine Blood (Negative) Urine Nitrite (Negative) Urine Bilirubin (Negative) Urine Urobilinogen (0.2) mg/dL Ur Leukocyte Esterase (Negative) U Hyaline Cast (Auto) (0-2) /LPF Urine Microscopic RBC (0-5) /HPF Urine Microscopic WBC (0-5) /HPF Ur Epithelial Cells (None Seen) /HPF Amorphous Crystals (None Seen) /HPF Urine Bacteria (None Seen) /HPF Urine Culture Reflexed (NO) Influenza Type A Ag NEGATIVE (NEGATIVE) Influenza Type B Ag NEGATIVE (NEGATIVE) RSV (PCR) NEGATIVE (NEGATIVE) SARS-CoV-2 (PCR) NEGATIVE (NEGATIVE) 09/19/23 09/19/23 Range/Units 04:10 08:50 WBC (4.0-10.5) x10^3/uL RBC (4.1-5.6) x10^6/uL Hgb (12.5-18.0) g/dL Hct (42-50) % MCV (78-100) fL MCH (26-32) pg MCHC (32-36) g/dL RDW (11.5-14.0) % Plt Count (150-450) x10^3/uL MPV (7.5-11.0) fL Gran % (36.0-66.0) % Immature Gran % (Auto) (0.00-0.4) % Nucleat RBC Rel Count (0.00-0.1) % Eos # (Auto) (0-0.5) x10^3/uL Immature Gran # (Auto) (0.00-0.03) x10^3u/L Absolute Lymphs (auto) (1.0-4.6) x10^3/uL Absolute Monos (auto) (0.0-1.3) x10^3/uL Absolute Nucleated RBC (0.00-0.01) x10^3u/L Lymphocytes % (24.0-44.0) % Monocytes % (0.0-12.0) % Eosinophils % (0.00-5.0) % Basophils % (0.0-0.4) % Absolute Granulocytes (1.4-6.9) x10^3/uL Basophils # (0-0.4) x10^3/uL Sodium 134 L (137-145) mmol/L Potassium 3.8 (3.5-5.1) mmol/L Chloride 107 (98-107) mmol/L Carbon Dioxide 18 L (22-30) mmol/L Anion Gap 13.1 (5-15) MEQ/L BUN 47 H (9-20) mg/dL Creatinine 1.55 H (0.66-1.25) mg/dL Estimated GFR 45.5 ML/MIN Glucose 132 H (74-106) mg/dL POC Glucometer 116 H (74 to 106) mg/dL Calcium 9.1 (8.4-10.2) mg/dL Magnesium 1.5 L (1.6-2.3) mg/dL Total Bilirubin 1.10 (0.2-1.3) mg/dL AST 55 (17-59) U/L ALT 28 (0-50) U/L Alkaline Phosphatase 44 (38-126) U/L Serum Total Protein 6.9 (6.3-8.2) g/dL Albumin 4.1 (3.5-5.0) g/dL Amylase (30-110) U/L Lipase (23-300) U/L Urine Color (Yellow) Urine Appearance (Clear) Urine pH (4.6-8.0) Ur Specific Adkins (1.005-1.030) Urine Protein (Negative) Urine Glucose (UA) (Negative) mg/dL Urine Ketones (Negative) Urine Blood (Negative) Urine Nitrite (Negative) Urine Bilirubin (Negative) Urine Urobilinogen (0.2) mg/dL Ur Leukocyte Esterase (Negative) U Hyaline Cast (Auto) (0-2) /LPF Urine Microscopic RBC (0-5) /HPF Urine Microscopic WBC (0-5) /HPF Ur Epithelial Cells (None Seen) /HPF Amorphous Crystals (None Seen) /HPF Urine Bacteria (None Seen) /HPF Urine Culture Reflexed (NO) Influenza Type A Ag (NEGATIVE) Influenza Type B Ag (NEGATIVE) RSV (PCR) (NEGATIVE) SARS-CoV-2 (PCR) (NEGATIVE) Radiology Exams: Radiology Procedures Category Date Time Status ABDOMEN AND PELVIS W/0 CONTRAS [CT] Stat Exams 09/18/23 17:20 Completed VENOUS UNILAT/LIMITED EXTREMIT [US] Stat Exams 09/18/23 17:21 Completed Assessment/Plan (1) Abdominal pain Current Visit: Yes Status: Acute Assessment & Plan: - resolved - r/t N/V/D - CT abd/pelvis 09/18/23: IMPRESSION: 1. No acute intra-abdominal and pelvis abnormality. 2. Bilateral renal multiple cortical cysts are seen. For assessment and grading, post-contrast is indicated. 3. Other findings as described. Code(s): R10.9 - UNSPECIFIED ABDOMINAL PAIN (2) Acute kidney failure, unspecified Current Visit: Yes Status: Acute Assessment & Plan: - Labs improving - IVF (3) Diarrhea Current Visit: Yes Status: Acute Assessment & Plan: - acidophilus started - Pt tolerated liquid diet well then had diarrhea again today - transition to soft diet per pt request. - Stool culture, c-dif - pending Code(s): R19.7 - DIARRHEA, UNSPECIFIED (4) Pain of left lower leg Current Visit: Yes Status: Acute Assessment & Plan: - pt reports this is ongoing for over 1 month - muscle relaxer - VD 09/18/23: Impression: Left leg negative for DVT. Code(s): M79.662 - PAIN IN LEFT LOWER LEG (5) Dehydration Current Visit: Yes Status: Acute Assessment & Plan: - labs improving with IVF- trend - fluid bolus gave in ER x2 Code(s): E86.0 - DEHYDRATION (6) Metabolic acidosis Current Visit: Yes Status: Acute Assessment & Plan: - Carbon dioxide 18 today- improving - Bibarb gtt - will recheck labs at noon. Code(s): E87.20 - ACIDOSIS, UNSPECIFIED (7) Nausea & vomiting Current Visit: No Status: Acute Assessment & Plan: - Zofran for nausea - no N/V since admission Code(s): R11.2 - NAUSEA WITH VOMITING, UNSPECIFIED (8) Hypomagnesemia Current Visit: Yes Status: Acute Assessment & Plan: - MG+ 1.5- replaced Code(s): E83.42 - HYPOMAGNESEMIA (9) Type 2 diabetes mellitus Current Visit: No Status: Chronic Assessment & Plan: - hold metformin - accucheck ac/HS - low dose s/s insulin VTE: Next of KIN: Heather Carey [phone] Code status: Full
[2023-09-19] MEDS ORDERED: Vitamin B-12 500 MCG PO SCH (11:00)
[2023-09-19] MEDS ORDERED: VITAMIN D PO SCH (11:00)
[2023-09-19 11:55] LABS: 027 TOX PROD PRESUMPTIVE NEGATIVE (NEGATIVE); TOXIGENIC C. DIFF ORG NEGATIVE (NEGATIVE)
[2023-09-19 11:57] VITALS: BP 139/67; PULSE 68; TEMP 96.6; O2SAT 98
[2023-09-19 12:37] LABS: ALBUMIN 3.8 g/dL (3.5-5.0); ANION GAP 11.6 MEQ/L (5-15); BILIRUBIN,TOTAL 0.8 mg/dL (0.2-1.3); Calcium 8.7 mg/dL (8.4-10.2); Creatinine 1 1.21 mg/dL (0.66-1.25); EST GLOMERULAR FILTRATION RATE 61.3 ML/MIN; MAGNESIUM 1.5 mg/dL (1.6-2.3); Potassium 3.6 mmol/L (3.5-5.1); Total Protein 6.5 g/dL (6.3-8.2)
[2023-09-19] MEDS ORDERED: IMODIUM 2 MG PO ONE (13:00)
--- NOTE | 2023-09-19 13:18 | PCM.DS ---
Discharge Summary Date of Admission: 09/18/23 20:52 Date of Discharge: 09/19/23 Admitting Physician: ODALIS ISABEL MD Primary Care Provider: MANNY KINNEY Allergies Allergies iodine Allergy (Verified 09/18/23 14:50) Sulfa (Sulfonamide Antibiotics) Allergy (Verified 09/18/23 14:50) Hospital Summary - Hospital Course Hospital Course: Mr. Carey is a 78 year old male with a past medical history significant for hypertension, hyperlipidemia and diabetes with no previous renal insufficiency. he presented to the hospital on 09/18/23 with complaints of nonspecific abdominal pain, nausea, vomiting and diarrhea for the past week associated with poor PO intake. No fever or chills. Labs were notable for a bicarb of 11, BUN of 52 and creatinine of 2.0. LLE muscle pain for over 1 month and has tried muscle rubs and Tylenol without relief. Muscle relaxer was helpful today. Venous doppler of lower extremities negative for DVT. He has been taking Triamterene HCT and JEREMIAS inhibitor for bp control. No NSAIDs or recent exposure to intravenous contrast. Does take Metformin for his diabetes. He continues to have diarrhea today, c-dif testing negative. No N/V or abd. pain. 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 Labs have improved since admission. Will recheck labs at noon and if improved will possibly d/c. Denies any further concerns at this time. - Vitals & Intake/Output Vital Signs: Vital Signs Temperature 96.6 F 09/19/23 11:56 Pulse Rate 68 09/19/23 11:56 Respiratory Rate 16 09/19/23 11:56 Blood Pressure 139/67 09/19/23 11:56 O2 Sat by Pulse Oximetry 98 09/19/23 11:56 Intake & Output: Intake & Output 09/17/23 09/18/23 09/19/23 09/20/23 11:59 11:59 11:59 11:59 Intake Total 60 Balance 60 Weight 103.419 kg - Lab Result Diagrams: 09/19/23 04:10 09/19/23 12:15 Lab Results-Last 24 Hrs: Lab Results-Last 24 Hours 09/18/23 09/18/23 09/18/23 Range/Units 17:22 17:36 17:36 WBC 7.9 (4.0-10.5) x10^3/uL RBC 5.50 (4.1-5.6) x10^6/uL Hgb 16.8 (12.5-18.0) g/dL Hct 51.3 H (42-50) % MCV 93.3 (78-100) fL MCH 30.5 (26-32) pg MCHC 32.7 (32-36) g/dL RDW 13.2 (11.5-14.0) % Plt Count 203 (150-450) x10^3/uL MPV 11.3 H (7.5-11.0) fL Gran % 63.0 (36.0-66.0) % Immature Gran % (Auto) 0.5 H (0.00-0.4) % Nucleat RBC Rel Count 0.0 (0.00-0.1) % Eos # (Auto) 0.07 (0-0.5) x10^3/uL Immature Gran # (Auto) 0.04 H (0.00-0.03) x10^3u/L Absolute Lymphs (auto) 2.05 (1.0-4.6) x10^3/uL Absolute Monos (auto) 0.73 (0.0-1.3) x10^3/uL Absolute Nucleated RBC 0.00 (0.00-0.01) x10^3u/L Lymphocytes % 26.0 (24.0-44.0) % Monocytes % 9.3 (0.0-12.0) % Eosinophils % 0.9 (0.00-5.0) % Basophils % 0.3 (0.0-0.4) % Absolute Granulocytes 4.97 (1.4-6.9) x10^3/uL Basophils # 0.02 (0-0.4) x10^3/uL Sodium 136 L (137-145) mmol/L Potassium 4.7 (3.5-5.1) mmol/L Chloride 109 H (98-107) mmol/L Carbon Dioxide 11 L* (22-30) mmol/L Anion Gap 18.8 H (5-15) MEQ/L BUN 52 H (9-20) mg/dL Creatinine 2.02 H (0.66-1.25) mg/dL Estimated GFR 33.1 ML/MIN Glucose 131 H (74-106) mg/dL POC Glucometer (74 to 106) mg/dL Lactic Acid (0.4-2.0) Calcium 10.4 H (8.4-10.2) mg/dL Magnesium (1.6-2.3) mg/dL Total Bilirubin 1.00 (0.2-1.3) mg/dL AST 22 (17-59) U/L ALT 18 (0-50) U/L Alkaline Phosphatase 39 (38-126) U/L Serum Total Protein 8.1 (6.3-8.2) g/dL Albumin 4.8 (3.5-5.0) g/dL Amylase 91 (30-110) U/L Lipase 119 (23-300) U/L Urine Color Dark Yellow (Yellow) Urine Appearance Turbid A (Clear) Urine pH 5.0 (4.6-8.0) Ur Specific [place] >=1.030 A (1.005-1.030) Urine Protein 30 (Negative) Urine Glucose (UA) Negative (Negative) mg/dL Urine Ketones Trace A (Negative) Urine Blood Negative (Negative) Urine Nitrite Negative (Negative) Urine Bilirubin Small A (Negative) Urine Urobilinogen 1.0 A (0.2) mg/dL Ur Leukocyte Esterase Trace A (Negative) U Hyaline Cast (Auto) 0-2 (0-2) /LPF Urine Microscopic RBC 0-2 (0-5) /HPF Urine Microscopic WBC 0-2 (0-5) /HPF Ur Epithelial Cells None Seen (None Seen) /HPF Amorphous Crystals Many A (None Seen) /HPF Urine Bacteria None Seen (None Seen) /HPF Urine Culture Reflexed YES (NO) C. difficile Screen (NEGATIVE) C.difficile 027-NAP1-B1 (NEGATIVE) Influenza Type A Ag (NEGATIVE) Influenza Type B Ag (NEGATIVE) RSV (PCR) (NEGATIVE) SARS-CoV-2 (PCR) (NEGATIVE) 09/18/23 09/19/23 09/19/23 Range/Units 20:06 00:06 04:10 WBC 7.6 (4.0-10.5) x10^3/uL RBC 4.89 (4.1-5.6) x10^6/uL Hgb 14.7 (12.5-18.0) g/dL Hct 44.3 (42-50) % MCV 90.6 (78-100) fL MCH 30.1 (26-32) pg MCHC 33.2 (32-36) g/dL RDW 13.2 (11.5-14.0) % Plt Count 182 (150-450) x10^3/uL MPV 11.5 H (7.5-11.0) fL Gran % (36.0-66.0) % Immature Gran % (Auto) (0.00-0.4) % Nucleat RBC Rel Count (0.00-0.1) % Eos # (Auto) (0-0.5) x10^3/uL Immature Gran # (Auto) (0.00-0.03) x10^3u/L Absolute Lymphs (auto) (1.0-4.6) x10^3/uL Absolute Monos (auto) (0.0-1.3) x10^3/uL Absolute Nucleated RBC (0.00-0.01) x10^3u/L Lymphocytes % (24.0-44.0) % Monocytes % (0.0-12.0) % Eosinophils % (0.00-5.0) % Basophils % (0.0-0.4) % Absolute Granulocytes (1.4-6.9) x10^3/uL Basophils # (0-0.4) x10^3/uL Sodium (137-145) mmol/L Potassium (3.5-5.1) mmol/L Chloride (98-107) mmol/L Carbon Dioxide (22-30) mmol/L Anion Gap (5-15) MEQ/L BUN (9-20) mg/dL Creatinine (0.66-1.25) mg/dL Estimated GFR ML/MIN Glucose (74-106) mg/dL POC Glucometer 134 H (74 to 106) mg/dL Lactic Acid (0.4-2.0) Calcium (8.4-10.2) mg/dL Magnesium (1.6-2.3) mg/dL Total Bilirubin (0.2-1.3) mg/dL AST (17-59) U/L ALT (0-50) U/L Alkaline Phosphatase (38-126) U/L Serum Total Protein (6.3-8.2) g/dL Albumin (3.5-5.0) g/dL Amylase (30-110) U/L Lipase (23-300) U/L Urine Color (Yellow) Urine Appearance (Clear) Urine pH (4.6-8.0) Ur Specific [place] (1.005-1.030) Urine Protein (Negative) Urine Glucose (UA) (Negative) mg/dL Urine Ketones (Negative) Urine Blood (Negative) Urine Nitrite (Negative) Urine Bilirubin (Negative) Urine Urobilinogen (0.2) mg/dL Ur Leukocyte Esterase (Negative) U Hyaline Cast (Auto) (0-2) /LPF Urine Microscopic RBC (0-5) /HPF Urine Microscopic WBC (0-5) /HPF Ur Epithelial Cells (None Seen) /HPF Amorphous Crystals (None Seen) /HPF Urine Bacteria (None Seen) /HPF Urine Culture Reflexed (NO) C. difficile Screen (NEGATIVE) C.difficile 027-NAP1-B1 (NEGATIVE) Influenza Type A Ag NEGATIVE (NEGATIVE) Influenza Type B Ag NEGATIVE (NEGATIVE) RSV (PCR) NEGATIVE (NEGATIVE) SARS-CoV-2 (PCR) NEGATIVE (NEGATIVE) 09/19/23 09/19/23 09/19/23 Range/Units 04:10 08:50 11:05 WBC (4.0-10.5) x10^3/uL RBC (4.1-5.6) x10^6/uL Hgb (12.5-18.0) g/dL Hct (42-50) % MCV (78-100) fL MCH (26-32) pg MCHC (32-36) g/dL RDW (11.5-14.0) % Plt Count (150-450) x10^3/uL MPV (7.5-11.0) fL Gran % (36.0-66.0) % Immature Gran % (Auto) (0.00-0.4) % Nucleat RBC Rel Count (0.00-0.1) % Eos # (Auto) (0-0.5) x10^3/uL Immature Gran # (Auto) (0.00-0.03) x10^3u/L Absolute Lymphs (auto) (1.0-4.6) x10^3/uL Absolute Monos (auto) (0.0-1.3) x10^3/uL Absolute Nucleated RBC (0.00-0.01) x10^3u/L Lymphocytes % (24.0-44.0) % Monocytes % (0.0-12.0) % Eosinophils % (0.00-5.0) % Basophils % (0.0-0.4) % Absolute Granulocytes (1.4-6.9) x10^3/uL Basophils # (0-0.4) x10^3/uL Sodium 134 L (137-145) mmol/L Potassium 3.8 (3.5-5.1) mmol/L Chloride 107 (98-107) mmol/L Carbon Dioxide 18 L (22-30) mmol/L Anion Gap 13.1 (5-15) MEQ/L BUN 47 H (9-20) mg/dL Creatinine 1.55 H (0.66-1.25) mg/dL Estimated GFR 45.5 ML/MIN Glucose 132 H (74-106) mg/dL POC Glucometer 116 H (74 to 106) mg/dL Lactic Acid (0.4-2.0) Calcium 9.1 (8.4-10.2) mg/dL Magnesium 1.5 L (1.6-2.3) mg/dL Total Bilirubin 1.10 (0.2-1.3) mg/dL AST 55 (17-59) U/L ALT 28 (0-50) U/L Alkaline Phosphatase 44 (38-126) U/L Serum Total Protein 6.9 (6.3-8.2) g/dL Albumin 4.1 (3.5-5.0) g/dL Amylase (30-110) U/L Lipase (23-300) U/L Urine Color (Yellow) Urine Appearance (Clear) Urine pH (4.6-8.0) Ur Specific [place] (1.005-1.030) Urine Protein (Negative) Urine Glucose (UA) (Negative) mg/dL Urine Ketones (Negative) Urine Blood (Negative) Urine Nitrite (Negative) Urine Bilirubin (Negative) Urine Urobilinogen (0.2) mg/dL Ur Leukocyte Esterase (Negative) U Hyaline Cast (Auto) (0-2) /LPF Urine Microscopic RBC (0-5) /HPF Urine Microscopic WBC (0-5) /HPF Ur Epithelial Cells (None Seen) /HPF Amorphous Crystals (None Seen) /HPF Urine Bacteria (None Seen) /HPF Urine Culture Reflexed (NO) C. difficile Screen NEGATIVE (NEGATIVE) C.difficile 027-NAP1-B1 PRESUMPTIVE NEGATIVE (NEGATIVE) Influenza Type A Ag (NEGATIVE) Influenza Type B Ag (NEGATIVE) RSV (PCR) (NEGATIVE) SARS-CoV-2 (PCR) (NEGATIVE) 09/19/23 09/19/23 09/19/23 Range/Units 11:22 12:15 12:20 WBC (4.0-10.5) x10^3/uL RBC (4.1-5.6) x10^6/uL Hgb (12.5-18.0) g/dL Hct (42-50) % MCV (78-100) fL MCH (26-32) pg MCHC (32-36) g/dL RDW (11.5-14.0) % Plt Count (150-450) x10^3/uL MPV (7.5-11.0) fL Gran % (36.0-66.0) % Immature Gran % (Auto) (0.00-0.4) % Nucleat RBC Rel Count (0.00-0.1) % Eos # (Auto) (0-0.5) x10^3/uL Immature Gran # (Auto) (0.00-0.03) x10^3u/L Absolute Lymphs (auto) (1.0-4.6) x10^3/uL Absolute Monos (auto) (0.0-1.3) x10^3/uL Absolute Nucleated RBC (0.00-0.01) x10^3u/L Lymphocytes % (24.0-44.0) % Monocytes % (0.0-12.0) % Eosinophils % (0.00-5.0) % Basophils % (0.0-0.4) % Absolute Granulocytes (1.4-6.9) x10^3/uL Basophils # (0-0.4) x10^3/uL Sodium 135 L (137-145) mmol/L Potassium 3.6 (3.5-5.1) mmol/L Chloride 104 (98-107) mmol/L Carbon Dioxide 22 (22-30) mmol/L Anion Gap 11.6 (5-15) MEQ/L BUN 40 H (9-20) mg/dL Creatinine 1.21 (0.66-1.25) mg/dL Estimated GFR 61.3 ML/MIN Glucose 136 H (74-106) mg/dL POC Glucometer 140 H (74 to 106) mg/dL Lactic Acid 1.0 (0.4-2.0) Calcium 8.7 (8.4-10.2) mg/dL Magnesium 1.5 L (1.6-2.3) mg/dL Total Bilirubin 0.80 (0.2-1.3) mg/dL AST 31 (17-59) U/L ALT 29 (0-50) U/L Alkaline Phosphatase 40 (38-126) U/L Serum Total Protein 6.5 (6.3-8.2) g/dL Albumin 3.8 (3.5-5.0) g/dL Amylase (30-110) U/L Lipase (23-300) U/L Urine Color (Yellow) Urine Appearance (Clear) Urine pH (4.6-8.0) Ur Specific [place] (1.005-1.030) Urine Protein (Negative) Urine Glucose (UA) (Negative) mg/dL Urine Ketones (Negative) Urine Blood (Negative) Urine Nitrite (Negative) Urine Bilirubin (Negative) Urine Urobilinogen (0.2) mg/dL Ur Leukocyte Esterase (Negative) U Hyaline Cast (Auto) (0-2) /LPF Urine Microscopic RBC (0-5) /HPF Urine Microscopic WBC (0-5) /HPF Ur Epithelial Cells (None Seen) /HPF Amorphous Crystals (None Seen) /HPF Urine Bacteria (None Seen) /HPF Urine Culture Reflexed (NO) C. difficile Screen (NEGATIVE) C.difficile 027-NAP1-B1 (NEGATIVE) Influenza Type A Ag (NEGATIVE) Influenza Type B Ag (NEGATIVE) RSV (PCR) (NEGATIVE) SARS-CoV-2 (PCR) (NEGATIVE) Micro Results-Entire Visit: Microbiology 09/18/23 17:22 Urine Culture - Preliminary Urine, Void NO GROWTH TO DATE Accuchecks Date 09/19/23 Date 09/19/23 Date 09/19/23 Time 11:56 - Radiology Exams Ordered Rad Exams-Entire Visit: Radiology Procedures Category Date Time Status ABDOMEN AND PELVIS W/0 CONTRAS [CT] Stat Exams 09/18/23 17:20 Completed VENOUS UNILAT/LIMITED EXTREMIT [US] Stat Exams 09/18/23 17:21 Completed - Procedures and Test Procedures and Tests throughout Hospitalization: Therapy Orders & Screens 09/18/23 22:01 ST Screen per Nursing Assess ONCE Comment: Protocol Order Physician Instructions: Greater than [address] Admission Screening Reason For Exam: Triggered on Admission Diagnosis: Dehydration; vomiting; diarrhea; abdominal pain. CVA/Dyshpagia/Aphasia: No Cognitive Deficits: No Dehydration/Nutrition Deficit: Yes Reflux: No Oral-Motor Difficulties: No Pneumonia: No Fdc Resident: No Total Points: 5 Discharge Exam General Appearance: no apparent distress, alert Neurologic Exam: alert, oriented x 3, cooperative, normal mood/affect, nml cerebellar function, sensation nml, No motor deficits Eye Exam: PERRL, EOMI, eyes nml inspection Ears, Nose, Throat Exam: normal ENT inspection, pharynx normal, moist mucous membranes Neck Exam: normal inspection, non-tender, supple, full range of motion Respiratory Exam: normal breath sounds, lungs clear, No respiratory distress Cardiovascular Exam: regular rate/rhythm, normal heart sounds Gastrointestinal/Abdomen Exam: soft, No tenderness, No mass Male Genitalia Exam: deferred Rectal Exam: deferred Back Exam: normal inspection, normal range of motion, No CVA tenderness, No vertebral tenderness Extremity Exam: normal inspection, normal range of motion Skin Exam: normal color, warm, dry Final Diagnosis/Problem List - Final Discharge Diagnosis/Problem (1) Abdominal pain Current Visit: Yes Status: Acute Code(s): R10.9 - UNSPECIFIED ABDOMINAL PAIN (2) Acute kidney failure, unspecified Current Visit: Yes Status: Acute (3) Diarrhea Current Visit: Yes Status: Acute Code(s): R19.7 - DIARRHEA, UNSPECIFIED (4) Pain of left lower leg Current Visit: Yes Status: Acute Code(s): M79.662 - PAIN IN LEFT LOWER LEG (5) Dehydration Current Visit: Yes Status: Acute Code(s): E86.0 - DEHYDRATION (6) Metabolic acidosis Current Visit: Yes Status: Acute Code(s): E87.20 - ACIDOSIS, UNSPECIFIED (7) Nausea & vomiting Current Visit: No Status: Acute Code(s): R11.2 - NAUSEA WITH VOMITING, UNSPECIFIED (8) Hypomagnesemia Current Visit: Yes Status: Acute Code(s): E83.42 - HYPOMAGNESEMIA (9) Type 2 diabetes mellitus Current Visit: No Status: Chronic Priority: High Assessment & Plan: (1) Abdominal pain Current Visit: Yes Status: Acute Assessment & Plan: - resolved - r/t N/V/D - CT abd/pelvis 09/18/23: IMPRESSION: 1. No acute intra-abdominal and pelvis abnormality. 2. Bilateral renal multiple cortical cysts are seen. For assessment and grading, post-contrast is indicated. 3. Other findings as described. Code(s): R10.9 - UNSPECIFIED ABDOMINAL PAIN (2) Acute kidney failure, unspecified Current Visit: Yes Status: Acute Assessment & Plan: - Labs improving - IVF (3) Diarrhea Current Visit: Yes Status: Acute Assessment & Plan: - acidophilus started - Pt tolerated liquid diet well then had diarrhea again today - transition to soft diet per pt request. - Stool culture, c-dif - negative - Start imodium Code(s): R19.7 - DIARRHEA, UNSPECIFIED (4) Pain of left lower leg Current Visit: Yes Status: Acute Assessment & Plan: - pt reports this is ongoing for over 1 month - muscle relaxer - VD 09/18/23: Impression: Left leg negative for DVT. Code(s): M79.662 - PAIN IN LEFT LOWER LEG (5) Dehydration Current Visit: Yes Status: Acute Assessment & Plan: - labs improving with IVF- trend - fluid bolus gave in ER x2 Code(s): E86.0 - DEHYDRATION (6) Metabolic acidosis Current Visit: Yes Status: Acute Assessment & Plan: - Carbon dioxide 18 today- improving - Bibarb gtt - will recheck labs at noon. - Labs improved will d/c Code(s): E87.20 - ACIDOSIS, UNSPECIFIED (7) Nausea & vomiting Current Visit: No Status: Acute Assessment & Plan: - Zofran for nausea - no N/V since admission Code(s): R11.2 - NAUSEA WITH VOMITING, UNSPECIFIED (8) Hypomagnesemia Current Visit: Yes Status: Acute Assessment & Plan: - MG+ 1.5- replaced Code(s): E83.42 - HYPOMAGNESEMIA (9) Type 2 diabetes mellitus Current Visit: No Status: Chronic Assessment & Plan: - hold metformin - accucheck ac/HS - low dose s/s insulin - Discharge Discharge Date: 09/19/23 Disposition: Home, Self-Care Condition: Stable Prescriptions: New Ondansetron ODT 4 MG [Zofran Odt 4 mg] 4 mg PO Q6H PRN PRN #10 tablet PRN Reason: Vomiting Magnesium Oxide 400 mg [Mag-Ox 400] 400 mg PO DAILY 3 Days #3 tablet Loperamide HCl 2 mg [Imodium 2 mg] 2 mg PO DAILY PRN 10 Days #120 cap PRN Reason: Diarrhea Lactobacillus Acidophilus [Acidophilus TABLET] 1 tab PO BID 30 Days #60 tablet Continue Aspirin 81 mg PO DAILY Simvastatin 20 mg PO HS Triamterene/Hydrochlorothiazid [Triamterene-Hctz 37.5-25 mg Cp] 1 tab PO DAILY Amlodipine Besylate/Benazepril [Amlodipine-Benazepril 10-20 mg] 1 tab PO DAILY Fenofibrate,Micronized 145 mg* [Tricor 145 MG] 145 mg PO DAILY Metformin HCl 500 mg [Glucophage 500 MG] 500 mg PO BIDWM Metoprolol Succinate [Toprol Xl] 200 mg PO DAILY Trazodone HCl 50 mg [Desyrel 50 mg] 50 mg PO HS Vitamin E Mixed [Vitamin E] 100 unit PO DAILY Cholecalciferol (Vitamin D3) [Vitamin D] 5,000 unit PO DAILY Cyanocobalamin (Vitamin B-12) [B-12] 1,000 mcg PO DAILY Melatonin 10 mg PO HS Umeclidinium Brm/Vilanterol Tr [Anoro Ellipta 62.5-25 Mcg INH] 1 puff IH DAILY Additional Instructions: Follow up with family provider this week for repeat labs. Stay hydrated. Follow a BRAT diet. Magnesium can cause diarrhea as well but please continue meds ordered. Follow up with: MANNY KINNEY MD [Primary Care Provider] - 10/06/23 10:30 am ([facility])
[2023-09-19] MEDS ORDERED: Acidophilus TABLET PO SCH (15:00)
[2023-09-19] MEDS ORDERED: DESYREL 50 MG PO SCH (22:00)
[2023-09-19] MEDS ORDERED: ZOCOR 20MG PO SCH (22:00)
[2023-09-19] MEDS ORDERED: MELATONIN PO SCH (22:00)
[2023-09-19] MEDS ORDERED: NON-FORMULARY ITEM (Melatonin [Melatonin] 10 MG Tablet) PO SCH (22:00)
[2023-09-20] MEDS ORDERED: METOPROLOL SUCCINATE 200 MG PO SCH (10:00)
[2023-09-20] MEDS ORDERED: VITAMIN E MIXED 100 UNIT PO SCH (10:00)
[2023-09-20] MEDS ORDERED: NON-FORMULARY ITEM (Cyanocobalamin (Vitamin B-12) [B-12] 1,000 MCG Tablet) PO SCH (10:00)
[2023-09-20] MEDS ORDERED: VITAMIN D PO SCH (10:00)
[2023-09-20] MEDS ORDERED: MAG-OX 400 PO ONE (13:23)
== END 2023-09-19 15:45 | disposition home or self-care (01) ==
LOC: ED 13:53 → MED SURG 20:52
PROVIDERS: ADMIT Internal Medicine Nephrology; ATTEND Internal Medicine Nephrology
DX: R10.9 Unspecified abdominal pain (principal); N19 Unspecified kidney failure; R19.7 Diarrhea, unspecified; M79.662 Pain in left lower leg; E86.0 Dehydration; E87.20 Acidosis, unspecified; R11.2 Nausea with vomiting, unspecified; E83.42 Hypomagnesemia; I10 Essential (primary) hypertension; E78.5 Hyperlipidemia, unspecified; E11.9 Type 2 diabetes mellitus without complications; Z79.899 Other long term (current) drug therapy; Z20.828 Contact with and (suspected) exposure to other viral communicable diseases; Z85.46 Personal history of malignant neoplasm of prostate
CPT/HCPCS: 0241U; 36000; 36415; 74176; 80053; 81001; 82150; 82947; 83605; 83690; 83735; 85025; 85027; 87086; 87493; 93971; 96374; 99284; 93268; J2270; J2405; Q3014; A9270-GY; G0378

== ENCOUNTER 2023-12-13 18:26 | Observation (INO) | payer MEDICARE, BC ==
[2023-12-13] MEDS ORDERED: TORAdol 30 mg Injection ONE ×2 (19:35→19:42)
[2023-12-13] MEDS: TORAdol 30 mg Injection IM ONE (19:40)
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
[2023-12-13] MEDS ORDERED: Docusate Sodium 100 MG PO PRN (22:52)
[2023-12-13] MEDS ORDERED: HUMALOG SQ PRN (22:52)
[2023-12-13] MEDS ORDERED: TYLENOL 325 MG PO PRN (22:52)
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
[2023-12-13] MEDS: DESYREL 50 MG PO SCH (23:19)
[2023-12-13] MEDS: ZOCOR 20MG PO SCH (23:20)
[2023-12-13] MEDS: NORCO 5/325 MG PO PRN (23:20)
[2023-12-13] MEDS: Sodium Chloride 0.9% 1000 ML 1,000 ML IV SCH (23:31)
[2023-12-14] MEDS: Hydromorphone 1 mg/ml Injection IV PRN (01:44)
[2023-12-14 04:33] LABS: Absolute Neutrophil Ct (ANC) 4.73 x10^3/uL (1.4-6.9); BASOPHIL % 0.3 % (0.0-0.4); Basophil (Absolute #) 0.02 x10^3/uL (0-0.4); Eosinophil % 2.6 % (0.00-5.0); Eosinophil (Absolute #) 0.19 x10^3/uL (0-0.5); Hematocrit 41.8 % (42-50); Hemoglobin 14.1 g/dL (12.5-18.0); IMMATURE GRAN # 0.06 x10^3u/L (0.00-0.03); IMMATURE GRAN % 0.8 % (0.00-0.4); Lymphocyte (Absolute #) 1.84 x10^3/uL (1.0-4.6); Lymphocytes % 24.9 % (24.0-44.0); Mean Cell Volume 88.2 fL (78-100); Mean Corpuscular Hemoglobin 29.7 pg (26-32); Mean Corpuscular Hgb Concent. 33.7 g/dL (32-36); Mean Platelet Volume 10.8 fL (7.5-11.0); Monocyte (Absolute #) 0.54 x10^3/uL (0.0-1.3); Monocytes % 7.3 % (0.0-12.0); Neutrophil % 64.1 % (36.0-66.0); Platelet Count 197 x10^3/uL (150-450); Red Blood Count 4.74 x10^6/uL (4.1-5.6); Red Cell Distribution Width 12.4 % (11.5-14.0); White Blood Count 7.4 x10^3/uL (4.0-10.5)
[2023-12-14 05:05] LABS: ALBUMIN 3.5 g/dL (3.5-5.0); ANION GAP 12.9 MEQ/L (5-15); BILIRUBIN,TOTAL 0.5 mg/dL (0.2-1.3); Calcium 9.5 mg/dL (8.4-10.2); Creatinine 1 1.1 mg/dL (0.66-1.25); EST GLOMERULAR FILTRATION RATE 68.7 ML/MIN; Potassium 3.6 mmol/L (3.5-5.1); Total Protein 6.3 g/dL (6.3-8.2)
[2023-12-14 07:24] VITALS: O2SAT 94
[2023-12-14] MEDS ORDERED: TYLENOL 325 MG PO PRN (07:33)
[2023-12-14] MEDS ORDERED: ZOFRAN ODT 4 MG PO PRN (07:34)
[2023-12-14] MEDS: Glucophage 500 MG PO SCH (07:55)
[2023-12-14] MEDS ORDERED: MEDICATION INTERVENTION MC SCH (08:00)
--- NOTE | 2023-12-14 08:42 | XRAY ---
Indication: Pain. Multiple contiguous axial images obtained through the lumbar spine. Sagittal and coronal reformatted images obtained. Comparison: CT abdomen/pelvis September 18, 2023. Osseous structures remain demineralized. There remains mild/moderate multilevel lumbar degenerative disc disease including multilevel vacuum disc phenomena. No large disc herniation or spinal canal stenosis. Facets are symmetric. Sagittal and coronal reformatted images again demonstrates normal lumbar alignment with multilevel disc space narrowing again greatest at L1-L2. No acute compression fracture or subluxation. Visualized noncontrasted soft tissues demonstrates stable 3.8 cm left upper renal cyst and moderate scattered arteriosclerotic calcifications. Impression: Stable osteopenia, multilevel degenerative disc disease, left renal cyst, and arteriosclerotic disease. No new/acute findings.
--- NOTE | 2023-12-14 09:05 | PCM.DS ---
Discharge Summary Date of Admission: 12/13/23 21:58 Date of Discharge: 12/14/23 Admitting Physician: ODALIS ISABEL MD Primary Care Provider: GREGORIA,MANNY Allergies Allergies iodine Allergy (Verified 12/13/23 18:39) Sulfa (Sulfonamide Antibiotics) Allergy (Verified 12/13/23 18:39) Hospital Summary - Hospital Course Hospital Course: Mr. OWUSU is a 78 year old male with a past medical history significant for hypertension, diabetes, and hyperlipidemia. He presented to the hospital with complaints of worsening R leg pain that has been going on for about a week and steadily worsening. He went to see his PCP who told him it was sciatica and gave him some Robaxin but without relief. He was also referred to pain management with Dr. Tariq and has not heard from them yet. He reported he has been unable to walk due to the pain but denies any focus weakness. CT scan lumbar spine negative for acute concern. Due to his inability to care for himself, he was recommended for admission. Today he is irritable and told the nurse that he does not need to see a nurse or a nurse practitioner and if he wanted that he would speak with his family members. He also grabbed the nurses arm today. When this provider went into pt's room today and explained who I was he asked that I leave because he was eating breakfast and did not want to be bothered. IV narcotic pain meds d/c'd. Gabapentin added for sciatic pain. He is also getting steroids. Tramadol added PRN. Will also add narcan at d/c. Will have PT work with pt this AM to eval for any home needs. He is refusing to go anywhere else but home and denies any home needs or assistance. He is upset that pain management will not come and see him in the hospital. Discussed that they are unable to do so and that Op f/u will be needed. CM to assist with possible earlier appointment. He is able to walk from bed to chair w/o any concerns. He denies CP, SOB, abd. pain, N/V/D. - Vitals & Intake/Output Vital Signs: Vital Signs Temperature 97.5 F 12/14/23 07:23 Pulse Rate 52 L 12/14/23 07:23 Respiratory Rate 17 12/14/23 07:23 Blood Pressure 162/75 12/14/23 07:23 O2 Sat by Pulse Oximetry 94 L 12/14/23 07:23 Intake & Output: Intake & Output 12/11/23 12/12/23 12/13/23 12/14/23 11:59 11:59 11:59 11:59 Intake Total 240 Output Total 1 Balance 239 Weight 103.419 kg - Lab Result Diagrams: 12/14/23 04:24 12/14/23 04:24 Lab Results-Last 24 Hrs: Lab Results-Last 24 Hours 12/14/23 12/14/23 12/14/23 Range/Units 04:24 04:24 04:34 WBC 7.4 (4.0-10.5) x10^3/uL RBC 4.74 (4.1-5.6) x10^6/uL Hgb 14.1 (12.5-18.0) g/dL Hct 41.8 L (42-50) % MCV 88.2 (78-100) fL MCH 29.7 (26-32) pg MCHC 33.7 (32-36) g/dL RDW 12.4 (11.5-14.0) % Plt Count 197 (150-450) x10^3/uL MPV 10.8 (7.5-11.0) fL Gran % 64.1 (36.0-66.0) % Immature Gran % (Auto) 0.8 H (0.00-0.4) % Nucleat RBC Rel Count 0.0 (0.00-0.1) % Eos # (Auto) 0.19 (0-0.5) x10^3/uL Immature Gran # (Auto) 0.06 H (0.00-0.03) x10^3u/L Absolute Lymphs (auto) 1.84 (1.0-4.6) x10^3/uL Absolute Monos (auto) 0.54 (0.0-1.3) x10^3/uL Absolute Nucleated RBC 0.00 (0.00-0.01) x10^3u/L Lymphocytes % 24.9 (24.0-44.0) % Monocytes % 7.3 (0.0-12.0) % Eosinophils % 2.6 (0.00-5.0) % Basophils % 0.3 (0.0-0.4) % Absolute Granulocytes 4.73 (1.4-6.9) x10^3/uL Basophils # 0.02 (0-0.4) x10^3/uL Sodium 137 (135-145) mmol/L Potassium 3.6 (3.5-5.1) mmol/L Chloride 107 (98-107) mmol/L Carbon Dioxide 21 L (22-30) mmol/L Anion Gap 12.9 (5-15) MEQ/L BUN 24 H (9-20) mg/dL Creatinine 1.10 (0.66-1.25) mg/dL Estimated GFR 68.7 ML/MIN Glucose 128 H (74-106) mg/dL POC Glucometer (74 to 106) mg/dL Hemoglobin A1c 5.64 (4.5-6.0) % Calcium 9.5 (8.4-10.2) mg/dL Total Bilirubin 0.50 (0.2-1.3) mg/dL AST 25 (17-59) U/L ALT 18 (0-50) U/L Alkaline Phosphatase 46 (38-126) U/L Serum Total Protein 6.3 (6.3-8.2) g/dL Albumin 3.5 (3.5-5.0) g/dL 12/14/23 Range/Units 07:42 WBC (4.0-10.5) x10^3/uL RBC (4.1-5.6) x10^6/uL Hgb (12.5-18.0) g/dL Hct (42-50) % MCV (78-100) fL MCH (26-32) pg MCHC (32-36) g/dL RDW (11.5-14.0) % Plt Count (150-450) x10^3/uL MPV (7.5-11.0) fL Gran % (36.0-66.0) % Immature Gran % (Auto) (0.00-0.4) % Nucleat RBC Rel Count (0.00-0.1) % Eos # (Auto) (0-0.5) x10^3/uL Immature Gran # (Auto) (0.00-0.03) x10^3u/L Absolute Lymphs (auto) (1.0-4.6) x10^3/uL Absolute Monos (auto) (0.0-1.3) x10^3/uL Absolute Nucleated RBC (0.00-0.01) x10^3u/L Lymphocytes % (24.0-44.0) % Monocytes % (0.0-12.0) % Eosinophils % (0.00-5.0) % Basophils % (0.0-0.4) % Absolute Granulocytes (1.4-6.9) x10^3/uL Basophils # (0-0.4) x10^3/uL Sodium (135-145) mmol/L Potassium (3.5-5.1) mmol/L Chloride (98-107) mmol/L Carbon Dioxide (22-30) mmol/L Anion Gap (5-15) MEQ/L BUN (9-20) mg/dL Creatinine (0.66-1.25) mg/dL Estimated GFR ML/MIN Glucose (74-106) mg/dL POC Glucometer 125 H (74 to 106) mg/dL Hemoglobin A1c (4.5-6.0) % Calcium (8.4-10.2) mg/dL Total Bilirubin (0.2-1.3) mg/dL AST (17-59) U/L ALT (0-50) U/L Alkaline Phosphatase (38-126) U/L Serum Total Protein (6.3-8.2) g/dL Albumin (3.5-5.0) g/dL Micro Results-Entire Visit: Accuchecks Date 12/14/23 Time 08:25 - Radiology Exams Ordered Rad Exams-Entire Visit: Radiology Procedures Category Date Time Status LUMBAR SPINE W/O [CT] Stat Exams 12/13/23 19:29 Completed - Procedures and Test Procedures and Tests throughout Hospitalization: Therapy Orders & Screens 12/13/23 22:52 PT Eval & Treat ( Order) ONCE Reason for Eval:: difficulty with ambulation Diagnosis: Intractable back pain OT Eval and Treat ( Order) ONCE Comment: Physician Instructions: Reason For Exam: Diagnosis: Intractable back pain Discharge Exam General Appearance: no apparent distress, alert Neurologic Exam: alert, oriented x 3, normal mood/affect, nml cerebellar function, sensation nml, agitation, No motor deficits Eye Exam: PERRL, EOMI, eyes nml inspection Ears, Nose, Throat Exam: normal ENT inspection, pharynx normal, moist mucous membranes Neck Exam: normal inspection, non-tender, supple, full range of motion Respiratory Exam: normal breath sounds, lungs clear, No respiratory distress Cardiovascular Exam: regular rate/rhythm, normal heart sounds Gastrointestinal/Abdomen Exam: soft, No tenderness, No mass Male Genitalia Exam: deferred Rectal Exam: deferred Back Exam: normal inspection, normal range of motion, No CVA tenderness, No vertebral tenderness Extremity Exam: normal inspection, normal range of motion Skin Exam: normal color, warm, dry Final Diagnosis/Problem List - Final Discharge Diagnosis/Problem (1) Sciatica Current Visit: Yes Status: Acute Assessment & Plan: Sxs improved today - CT lumbar spine negative for acute concern - referred to Pain management Dr. Chandni Murphy CM to try and make earlier appointment if possible - Start gabapentin TID - PT eval- may need OP PT for procedures to be approved if pt is willing. Code(s): M54.30 - SCIATICA, UNSPECIFIED SIDE (2) Impaired mobility and ADLs Current Visit: Yes Status: Acute Assessment & Plan: - PT/OT eval - refused OP rehab Code(s): Z74.09 - OTHER REDUCED MOBILITY; Z78.9 - OTHER SPECIFIED HEALTH STATUS (3) Intractable back pain Current Visit: Yes Status: Acute Assessment & Plan: - Sxs improved today - CT lumbar spine negative for acute concern - referred to Pain management Dr. Chandni Murphy CM to try and make earlier appointment if possible - pain control Code(s): M54.9 - DORSALGIA, UNSPECIFIED (4) Acute kidney failure, unspecified Current Visit: No Status: Acute Assessment & Plan: Likely from prerenal azotemia in setting of diuretics/JEREMIAS - Gentle IVFs - Encourage PO intake - Hold Triamterene/HCTZ - Follow I/Os - Watch electrolytes, creatinine closely 12/13 - improved (5) Hypertensive chronic kidney disease with stage 1 through stage 4 chronic kidney disease, or unspecified chronic kidney disease Current Visit: No Status: Acute Assessment & Plan: Blood pressure under reasonable control - Continue bp meds - Low salt diet - Monitor bp readings Code(s): I12.9 - HYPERTENSIVE CHRONIC KIDNEY DISEASE W STG 1-4/UNSP CHR KDNY (6) Type 2 diabetes mellitus with diabetic chronic kidney disease Current Visit: No Status: Chronic Assessment & Plan: Sugars under good control - FSBS qAC/HS with SSI - Continue Metformin - Low carb diet - Monitor blood sugars Code(s): E11.22 - TYPE 2 DIABETES MELLITUS W DIABETIC CHRONIC KIDNEY DISEASE - Discharge Discharge Date: 12/14/23 Disposition: Home, Self-Care Condition: Good Prescriptions: New Gabapentin [Neurontin ] 300 mg PO TID 30 Days #90 cap Tramadol HCl 50 mg [Ultram 50 mg] 50 mg PO BID PRN PRN 3 Days #6 tablet PRN Reason: Pain Naloxone HCl [Narcan] 4 mg NS DAILY PRN PRN 30 Days #1 PRN Reason: respiratory depression Continue Aspirin 81 mg PO DAILY Simvastatin 20 mg PO HS Triamterene/Hydrochlorothiazid [Triamterene-Hctz 37.5-25 mg Cp] 1 tab PO DAILY Amlodipine Besylate/Benazepril [Amlodipine-Benazepril 10-20 mg] 1 tab PO DAILY Fenofibrate,Micronized 145 mg* [Tricor 145 MG] 145 mg PO DAILY Metformin HCl 500 mg [Glucophage 500 MG] 500 mg PO BIDWM Metoprolol Succinate [Toprol Xl] 200 mg PO DAILY Trazodone HCl 50 mg [Desyrel 50 mg] 50 mg PO HS Vitamin E Mixed [Vitamin E] 100 unit PO DAILY Cholecalciferol (Vitamin D3) [Vitamin D] 5,000 unit PO DAILY Cyanocobalamin (Vitamin B-12) [B-12] 1,000 mcg PO DAILY Melatonin 10 mg PO HS Ondansetron ODT 4 MG [Zofran Odt 4 mg] 4 mg PO Q6H PRN PRN #10 tablet PRN Reason: Vomiting Magnesium Oxide 400 mg [Mag-Ox 400] 400 mg PO DAILY 3 Days #3 tablet Loperamide HCl 2 mg [Imodium 2 mg] 2 mg PO DAILY PRN 10 Days #120 cap PRN Reason: Diarrhea Lactobacillus Acidophilus [Acidophilus TABLET] 1 tab PO BID 30 Days #60 tablet Additional Instructions: Your intake call appointment scheduled with the Pain Management nurse on 01/09/2024 at 2:00 pm. Your in-office appointment is set for 01/16/2024 at 4:15 pm. Follow up with: CANDY TARIQ MD [CONSULTING PHYSICIAN] - 01/16/24 4:15 pm MANNY KINNEY MD [Primary Care Provider] - 12/22/23 9:30 am ([place] Office)
[2023-12-14] MEDS: ULTRAM 50 MG PO PRN (09:48)
[2023-12-14] MEDS: Acidophilus TABLET PO SCH (09:49)
[2023-12-14] MEDS: MAG-OX 400 PO SCH (09:50)
[2023-12-14] MEDS: NEURONTIN PO SCH (09:50)
[2023-12-14] MEDS: Protonix 40MG Tablet PO SCH (09:50)
[2023-12-14] MEDS: ECOTRIN 81 MG PO SCH (09:50)
[2023-12-14] MEDS: VITAMIN D PO SCH (09:53)
[2023-12-14] MEDS: Lotrel 5/10 MG PO SCH (09:53)
[2023-12-14] MEDS: Vitamin B-12 500 MCG PO SCH (09:53)
[2023-12-14] MEDS: Toprol Xl 100 MG PO SCH (09:53)
[2023-12-14] MEDS: Tricor 145 MG PO SCH (09:53)
[2023-12-14] MEDS: Maxzide-25MG Tablet PO SCH (09:54)
[2023-12-14] MEDS: ENOXAPARIN SODIUM SQ SCH (09:56)
[2023-12-14] MEDS ORDERED: VITAMIN E MIXED 100 UNIT PO SCH (10:00)
[2023-12-14] MEDS ORDERED: AMLODIPINE BESYLATE PO SCH (10:00)
[2023-12-14] MEDS ORDERED: METOPROLOL SUCCINATE 200 MG PO SCH (10:00)
[2023-12-14] MEDS ORDERED: NON-FORMULARY ITEM (Aspirin [Aspirin] 81 MG Tablet) PO SCH (10:00)
[2023-12-14] MEDS ORDERED: BENAZEPRIL PO SCH (10:00)
[2023-12-14] MEDS ORDERED: NON-FORMULARY ITEM (Triamterene/Hydrochlorothiazid [Triamterene-Hctz 37.5-25 Mg Cp] 1 EACH PO SCH (10:00)
[2023-12-14] MEDS ORDERED: [UNRECOGNIZED DRUG - OTHER] PO SCH (10:00)
[2023-12-14] MEDS ORDERED: NON-FORMULARY ITEM (Cyanocobalamin (Vitamin B-12) [B-12] 1,000 MCG Tablet) PO SCH (10:00)
[2023-12-14 11:02] VITALS: BP 180/74; PULSE 69; RESP 18; TEMP 97.6
[2023-12-14] MEDS ORDERED: ZOCOR 20MG PO SCH (22:00)
[2023-12-14] MEDS ORDERED: DESYREL 50 MG PO SCH (22:00)
[2023-12-14] MEDS ORDERED: NON-FORMULARY ITEM (Melatonin [Melatonin] 10 MG Tablet) PO SCH (22:00)
[2023-12-14] MEDS ORDERED: MELATONIN PO SCH (22:00)
== END 2023-12-14 13:40 | disposition home or self-care (01) ==
LOC: ED 18:26 → MED SURG 21:58
PROVIDERS: ADMIT Internal Medicine Nephrology; ATTEND Internal Medicine Nephrology
DX: M54.30 Sciatica, unspecified side (principal); Z74.09 Other reduced mobility; M54.9 Dorsalgia, unspecified; E11.22 Type 2 diabetes mellitus with diabetic chronic kidney disease; I12.9 Hypertensive chronic kidney disease with stage 1 through stage 4 chronic kidney disease, or unspecified chronic kidney disease; N18.9 Chronic kidney disease, unspecified; E78.5 Hyperlipidemia, unspecified; Z79.899 Other long term (current) drug therapy; Z20.828 Contact with and (suspected) exposure to other viral communicable diseases; Z85.46 Personal history of malignant neoplasm of prostate
CPT/HCPCS: 36415; 72131; 80053; 82947; 83036; 85025; 93268; 96372; 97110; 97162; 97165; 97530; 99285; G0378; Q3014; J1170; J1650; J1885; A9270-GY

== ENCOUNTER 2024-08-02 20:54 | Emergency (ER) | payer MEDICARE, BC ==
[2024-08-02 20:59] VITALS: TEMP 99.1
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
[2024-08-02 21:20] LABS: Absolute Neutrophil Ct (ANC) 4.58 x10^3/uL (1.78-5.38); BASOPHIL % 0.3 % (0.2-1.2); Basophil (Absolute #) 0.02 x10^3/uL (0.01-0.08); Eosinophil (Absolute #) 0.07 x10^3/uL (0.04-0.54); Hematocrit 42.1 % (40.1-51.0); Hemoglobin 14.9 g/dL (13.7-17.5); IMMATURE GRAN # 0.04 x10^3u/L (0.001-0.031); IMMATURE GRAN % 0.6 % (0.001-0.429); Lymphocyte (Absolute #) 2.03 x10^3/uL (1.32-3.57); Lymphocytes % 28.3 % (21.8-53.1); Mean Cell Volume 85.2 fL (79.0-92.2); Mean Corpuscular Hemoglobin 30.2 pg (25.7-32.2); Mean Corpuscular Hgb Concent. 35.4 g/dL (32.3-36.5); Mean Platelet Volume 10.9 fL (9.4-12.4); Monocyte (Absolute #) 0.43 x10^3/uL (0.30-0.82); Neutrophil % 63.8 % (34.0-67.9); Platelet Count 210 x10^3/uL (163-337); Red Blood Count 4.94 x10^6/uL (4.63-6.08); Red Cell Distribution Width 12.9 % (11.6-14.4); White Blood Count 7.2 x10^3/uL (4.23-9.07)
[2024-08-02] MEDS ORDERED: PROTONIX 40 MG IV IV ONE (21:28)
[2024-08-02] MEDS ORDERED: BABY ASPIRIN 81 MG CHEW ONE (21:28)
[2024-08-02] MEDS ORDERED: Nitrostat 0.4 MG (ED) SL ONE (21:28)
[2024-08-02] MEDS ORDERED: Lasix 40 MG/4 ML ONE (21:29)
[2024-08-02] MEDS: BABY ASPIRIN 81 MG CHEW PO ONE ×2 (21:31→21:46)
[2024-08-02] MEDS: Lasix 40 MG/4 ML IV ONE (21:32)
[2024-08-02] MEDS: Nitrostat 0.4 MG (ED) SL ONE ×2 (21:32→21:48)
[2024-08-02 21:34] LABS: ALBUMIN 4.4 g/dL (3.5-5.0); BILIRUBIN,TOTAL 0.5 mg/dL (0.2-1.3); Calcium 10.2 mg/dL (8.4-10.2); Creatinine 1 1.01 mg/dL (0.66-1.25); EST GLOMERULAR FILTRATION RATE 75.7 ML/MIN; Potassium 3.3 mmol/L (3.5-5.1); Total Protein 6.7 g/dL (6.3-8.2)
[2024-08-02] MEDS: PROTONIX 40 MG IV IV ONE (21:34)
[2024-08-02 21:52] LABS: D-DIMER QUANTITATIVE 0.55 mg/L (0.0-0.50); INR 0.97 (0.8-3.0); PROTIME 10.6 SECONDS (9.4-12.5); PTT 26.2 SECONDS (25.1-36.5)
[2024-08-02 22:05] LABS: TSH, 3RD Generation 1.674 mIU/L (0.470-4.680)
[2024-08-02 22:06] LABS: TROPONIN 0.177 ng/mL (0.000-0.033)
--- NOTE | 2024-08-02 22:10 | XRAY ---
Indication: Chest pain. Comparison: November 29, 2021 Portable apical lordotic chest inflated again without focal infiltrate, consolidation, or large effusion. Heart not enlarged for AP portable technique again with tortuous descending aorta. Bony thorax intact again with osteopenia and degenerative changes. Impression: Continued nonacute chest with chronic features.
[2024-08-02 22:18] LABS: Amphetamine,Urine NEGATIVE (NEGATIVE); Barbiturate,Urine NEGATIVE (NEGATIVE); Benzodiazepine,Urine NEGATIVE (NEGATIVE); Cocaine,Urine NEGATIVE (NEGATIVE); Methadone,Urine NEGATIVE (NEGATIVE); Opiate,Urine NEGATIVE (NEGATIVE); PCP,Urine NEGATIVE (NEGATIVE); THC,Urine NEGATIVE (NEGATIVE)
[2024-08-02] MEDS ORDERED: PLAVIX Tablet ONE (22:53)
[2024-08-02] MEDS: PLAVIX Tablet PO ONE (22:54)
[2024-08-02 23:26] VITALS: PULSE 81; O2SAT 98
[2024-08-03 01:00] VITALS: BP 155/81; RESP 16
== END 2024-08-03 01:12 | disposition short-term general hospital (02) ==
LOC: ED 20:54
DX: I21.4 Non-ST elevation (NSTEMI) myocardial infarction (principal); R07.9 Chest pain, unspecified; R06.02 Shortness of breath; I10 Essential (primary) hypertension; E11.9 Type 2 diabetes mellitus without complications; E78.5 Hyperlipidemia, unspecified; Z79.01 Long term (current) use of anticoagulants; Z79.899 Other long term (current) drug therapy; Z85.46 Personal history of malignant neoplasm of prostate; I50.9 Heart failure, unspecified
CPT/HCPCS: 36415; 71045; 80053; 80061; 80307; 83036; 83690; 83721; 83880; 84443; 84484; 85025; 85379; 85610; 85730; 93005; 93041; 96374; 96375; 99285; J1940; A9270-GY

== ENCOUNTER 2025-07-07 18:49 | Observation (INO) | payer OTHER ==
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
[2025-07-07 19:32] LABS: BASOPHIL % 0.3 % (0.2-1.2); Basophil (Absolute #) 0.03 x10^3/uL (0.01-0.08); Eosinophil (Absolute #) 0.11 x10^3/uL (0.04-0.54); Hematocrit 43.0 % (40.1-51.0); Hemoglobin 14.5 g/dL (13.7-17.5); IMMATURE GRAN # 0.06 x10^3u/L (0.001-0.031); IMMATURE GRAN % 0.7 % (0.001-0.429); Lymphocyte (Absolute #) 2.25 x10^3/uL (1.32-3.57); Mean Corpuscular Hemoglobin 30.3 pg (25.7-32.2); Mean Corpuscular Hgb Concent. 33.7 g/dL (32.3-36.5); Monocyte (Absolute #) 0.55 x10^3/uL (0.30-0.82); NUCLEATED RBC # 0.00 x10^3u/L (0.00-0.012); NUCLEATED RBC % 0.0 % (0.00-0.2); Platelet Count 270 x10^3/uL (163-337); Red Blood Count 4.78 x10^6/uL (4.63-6.08); White Blood Count 8.6 x10^3/uL (4.23-9.07)
[2025-07-07 19:50] LABS: INR 1.02 (0.8-3.0); PROTIME 11.4 SECONDS (9.4-12.5)
[2025-07-07 20:01] LABS: Calcium 9.8 mg/dL (8.4-10.2); Carbon Dioxide 24.0 mmol/L (22-30); Creatinine 1 1.41 mg/dL (0.66-1.25); EST GLOMERULAR FILTRATION RATE 50.4 ML/MIN; Glucose 174.0 mg/dL (74-106); Potassium 3.8 mmol/L (3.5-5.1); SGOT/AST 22.0 U/L (17-59); SGPT/ALT 17.0 U/L (0-50); Total Protein 7.0 g/dL (6.3-8.2)
[2025-07-07 20:14] LABS: TROPONIN 0.02 ng/mL (0.000-0.033)
[2025-07-07] MEDS ORDERED: BABY ASPIRIN 81 MG CHEW ONE (20:40)
--- NOTE | 2025-07-07 20:40 | PCM.CONS ---
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 screening: Declined to provide Do you worry about a steady place to live?: No In the past 12 months,have you had to go without utilities?: No Have you or anyone in your house had to go without enough: No Transportation Issues: No Has anyone in your support network made you feel unsafe?: No Does the patient want assistance with any of the above?: No Physical Exam - Vital Signs Vital Signs: Vital Signs - 24 hr 07/07/25 07/07/25 07/07/25 18:49 19:02 19:20 Temperature 98.4 F Pulse Rate 78 75 Respiratory 19 24 Rate Blood Pressure 149/69 147/67 Blood Pressure 149/89 [Right Arm] O2 Sat by Pulse 98 98 96 Oximetry 07/07/25 07/07/25 07/07/25 19:30 20:01 20:36 Temperature Pulse Rate 88 78 Respiratory 14 20 Rate Blood Pressure 117/64 137/87 Blood Pressure [Right Arm] O2 Sat by Pulse 98 98 100 Oximetry - NIHSS Stroke Scale Date Completed: 07/07/25 Time Stroke Scale Completed: 17:09 Results - Labs Lab/Micro Results: Lab Results-Last 24 Hours 07/07/25 07/07/25 07/07/25 Range/Units 19:20 19:20 19:20 WBC 8.6 (4.23-9.07) x10^3/uL RBC 4.78 (4.63-6.08) x10^6/uL Hgb 14.5 (13.7-17.5) g/dL Hct 43.0 (40.1-51.0) % MCV 90.0 (79.0-92.2) fL MCH 30.3 (25.7-32.2) pg MCHC 33.7 (32.3-36.5) g/dL RDW 12.8 (11.6-14.4) % Plt Count 270 (163-337) x10^3/uL MPV 9.9 (9.4-12.4) fL Gran % 65.1 (34.0-67.9) % Immature Gran % (Auto) 0.7 H (0.001-0.429) % Nucleat RBC Rel Count 0.0 (0.00-0.2) % Eos # (Auto) 0.11 (0.04-0.54) x10^3/uL Immature Gran # (Auto) 0.06 H (0.001-0.031) x10^3u/L Absolute Lymphs (auto) 2.25 (1.32-3.57) x10^3/uL Absolute Monos (auto) 0.55 (0.30-0.82) x10^3/uL Absolute Nucleated RBC 0.00 (0.00-0.012) x10^3u/L Lymphocytes % 26.2 (21.8-53.1) % Monocytes % 6.4 (5.3-12.2) % Eosinophils % 1.3 (0.8-7.0) % Basophils % 0.3 (0.2-1.2) % Absolute Granulocytes 5.58 H (1.78-5.38) x10^3/uL Basophils # 0.03 (0.01-0.08) x10^3/uL PT 11.4 (9.4-12.5) SECONDS INR 1.02 (0.8-3.0) Sodium 137 (135-145) mmol/L Potassium 3.8 (3.5-5.1) mmol/L Chloride 102 (98-107) mmol/L Carbon Dioxide 24 (22-30) mmol/L Anion Gap 14.4 (5-15) MEQ/L BUN 27 H (9-20) mg/dL Creatinine 1.41 H (0.66-1.25) mg/dL Estimated GFR 50.4 ML/MIN Glucose 174 H (74-106) mg/dL Calcium 9.8 (8.4-10.2) mg/dL Magnesium (1.6-2.3) mg/dL Total Bilirubin 0.30 (0.2-1.3) mg/dL AST 22 (17-59) U/L ALT 17 (0-50) U/L Alkaline Phosphatase 55 (38-126) U/L Troponin I (0.000-0.033) ng/mL Serum Total Protein 7.0 (6.3-8.2) g/dL Albumin 4.4 (3.5-5.0) g/dL 10/20/25 Range/Units 19:20 WBC (4.23-9.07) x10^3/uL RBC (4.63-6.08) x10^6/uL Hgb (13.7-17.5) g/dL Hct (40.1-51.0) % MCV (79.0-92.2) fL MCH (25.7-32.2) pg MCHC (32.3-36.5) g/dL RDW (11.6-14.4) % Plt Count (163-337) x10^3/uL MPV (9.4-12.4) fL Gran % (34.0-67.9) % Immature Gran % (Auto) (0.001-0.429) % Nucleat RBC Rel Count (0.00-0.2) % Eos # (Auto) (0.04-0.54) x10^3/uL Immature Gran # (Auto) (0.001-0.031) x10^3u/L Absolute Lymphs (auto) (1.32-3.57) x10^3/uL Absolute Monos (auto) (0.30-0.82) x10^3/uL Absolute Nucleated RBC (0.00-0.012) x10^3u/L Lymphocytes % (21.8-53.1) % Monocytes % (5.3-12.2) % Eosinophils % (0.8-7.0) % Basophils % (0.2-1.2) % Absolute Granulocytes (1.78-5.38) x10^3/uL Basophils # (0.01-0.08) x10^3/uL PT (9.4-12.5) SECONDS INR (0.8-3.0) Sodium (135-145) mmol/L Potassium (3.5-5.1) mmol/L Chloride (98-107) mmol/L Carbon Dioxide (22-30) mmol/L Anion Gap (5-15) MEQ/L BUN (9-20) mg/dL Creatinine (0.66-1.25) mg/dL Estimated GFR ML/MIN Glucose (74-106) mg/dL Calcium (8.4-10.2) mg/dL Magnesium 1.6 (1.6-2.3) mg/dL Total Bilirubin (0.2-1.3) mg/dL AST (17-59) U/L ALT (0-50) U/L Alkaline Phosphatase (38-126) U/L Troponin I 0.020 (0.000-0.033) ng/mL Serum Total Protein (6.3-8.2) g/dL Albumin (3.5-5.0) g/dL Accuchecks Date 07/07/25 Time 19:10 - Radiology Orders Radiology Orders: Radiology Procedures Category Date Time Status HEAD WITHOUT CONTRAST [CT] Stat Exams 07/07/25 18:51 Taken Impressions & Recommendations - ED Arrival Time ED Arrival Date & Time: ED Arrival Date and Time 07/07/25 18:49 Last known well time: - NIHSS IV Thrombolysis Standard of Care: IV thrombolysis as a standard of care in acute stroke discussed with ANDRZEJ DUARTE. Risk, benefits, and options of IV thrombolytic therapy for acute ischemic stroke were discussed with the patient/family MERCEDES OWUSU. We discussed that use of IV tenecteplase is in line with national stroke guidelines. We discussed that risks of IV thrombolytic use include intracranial hemorrhage, other fatal bleeding risks, and angioedema. Alternatives of treatment, including not proceeding with thrombolytic therapy were discussed. - Recommendations Recommendations: -Neuro checks, NIHSS, vital signs monitoring as per post tenecteplase protocol -Repeat non contrast head CT or noncontrast MRI brain 24 hours after IV thrombolyltic administration. -Obtain STAT non contrast head CT if there are new neurological deficits, worsening of current deficits, or with complaint of severe headache. Notify Neurology MARÍA of changes in neurological exam. -Nicardipine gtt as needed to maintain BP< 180/105 x 24hr post tenecteplase administration. -Monitor for angioedema -SCD's for DVT prophylaxis. Work up: -Basic labs (CBC, BMP, TSH+T4) if not done already. -INR,PTT if not done already -Fasting Lipid Panel and Hgb A1c -Transthroacic echocardiogram [with bubble study] -EKG + Telemetry- monitor for A-FIB Secondary Stroke Prevention -Hold off on antiplatelet therapy x 24 hr post IV thrombolytic therapy Decision to initiate antiplatelet therapy, or anticoagulation if needed, will be based on repeat imaging at 24 hour post thrombolytic administration. -If not medical contraindication, start high intensity statin. Eg. Atrovastatin 80 mg daily Risk Factor Management -HTN control: BP <180/105 for first 24 hr post tenecteplase -If diabetic, optimize glucose control: halfway goal HgA1c <7 -HLD control: Long-term goal LDL <70. High intensity statin recommended. Moderate intensity statin in patients > 75 years. -Smoking Alcohol Use Drug use cessation counseling Stroke Rehabilitation: -Physical therapy, occupational therapy, speech therapy consults -Social work and case management consults for help with discharge needs. Impression and recommendation were discussed with Dr. ANDRZEJ DUARTE Thank you for allowing us to participate in this patient's care. Please call [facility] with questions, concerns, or change in patient's neurological status. This consult was performed via secure telemedicine audio/visual platform with [ ] RN assisting at bedside. Patient identity verified and consent obtained. TIQ recieved at [ ] Neuro Cart Time: Delays in Patient Encounter: Assessment & Plan - Encounter Encounter: "The entirety of this encounter was performed via Telemedicine using audio and visual "
[2025-07-07] MEDS: BABY ASPIRIN 81 MG CHEW PO ONE (20:41)
[2025-07-07] MEDS ORDERED: HUMULIN R SQ PRN (21:27)
[2025-07-07] MEDS ORDERED: TYLENOL 325 MG PO PRN (21:42)
[2025-07-07] MEDS ORDERED: HUMALOG SQ PRN (22:24)
[2025-07-07] MEDS ORDERED: Zofran 4 MG/2 ML VIAL IV PRN (22:24)
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
[2025-07-07] MEDS ORDERED: ULTRAM 50 MG PO PRN (22:48)
[2025-07-07] MEDS ORDERED: NON-FORMULARY ITEM (Naloxone Hcl [Narcan] 4 MG Spray) NS PRN (22:48)
[2025-07-07] MEDS ORDERED: IMODIUM 2 MG PO PRN (22:48)
[2025-07-08 04:31] LABS: BASOPHIL % 0.6 % (0.2-1.2); Basophil (Absolute #) 0.05 x10^3/uL (0.01-0.08); Eosinophil (Absolute #) 0.14 x10^3/uL (0.04-0.54); Hematocrit 41.3 % (40.1-51.0); Hemoglobin 13.8 g/dL (13.7-17.5); IMMATURE GRAN # 0.05 x10^3u/L (0.001-0.031); IMMATURE GRAN % 0.6 % (0.001-0.429); Lymphocyte (Absolute #) 2.28 x10^3/uL (1.32-3.57); Mean Corpuscular Hemoglobin 29.9 pg (25.7-32.2); Mean Corpuscular Hgb Concent. 33.4 g/dL (32.3-36.5); Monocyte (Absolute #) 0.56 x10^3/uL (0.30-0.82); NUCLEATED RBC # 0.00 x10^3u/L (0.00-0.012); NUCLEATED RBC % 0.0 % (0.00-0.2); Platelet Count 240 x10^3/uL (163-337); Red Blood Count 4.61 x10^6/uL (4.63-6.08); White Blood Count 7.7 x10^3/uL (4.23-9.07)
[2025-07-08 05:21] LABS: Calcium 9.5 mg/dL (8.4-10.2); Carbon Dioxide 26.0 mmol/L (22-30); Creatinine 1 1.16 mg/dL (0.66-1.25); EST GLOMERULAR FILTRATION RATE 63.7 ML/MIN; Glucose 111.0 mg/dL (74-106); Potassium 3.9 mmol/L (3.5-5.1)
[2025-07-08] MEDS ORDERED: MEDICATION INTERVENTION MC SCH ×2 (07:15)
[2025-07-08 08:04] LABS: Cholesterol 126.0 mg/dL (50-200); LDL, DIRECT 65.0 mg/dL (30-100); TRIGLYCERIDE 109.0 mg/dL (30-150)
--- NOTE | 2025-07-08 08:46 | XRAY ---
Indication: Left-sided numbness. Multiple contiguous axial images obtained through the head without contrast. Comparison: July 03, 2013 There is now age-appropriate global atrophy and mild periventricular degenerative microischemia bilaterally. New remote lacunar infarct right caudate head. No acute intracranial hemorrhage, abnormal extra-axial fluid collection, or mass effect. 4th ventricle is midline without hydrocephalus. Bony calvarium intact. Again moderate mucosal thickening both ethmoid sinuses. Incompletely visualized 1.1 cm left maxillary sinus polyp/retention cyst. Mastoid air cells are pneumatized and clear. Impression: Nonacute senile brain with right caudate remote lacunar infarct. Again incidental paranasal sinus disease.
[2025-07-08 09:47] VITALS: RESP 20
[2025-07-08] MEDS ORDERED: VITAMIN E MIXED 100 UNIT PO SCH (10:00)
[2025-07-08] MEDS ORDERED: AMLODIPINE BESYLATE PO SCH (10:00)
[2025-07-08] MEDS ORDERED: NON-FORMULARY ITEM (Triamterene/Hydrochlorothiazid [Triamterene-Hctz 37.5-25 Mg Cp] 1 EACH PO SCH (10:00)
[2025-07-08] MEDS ORDERED: NON-FORMULARY ITEM (Apixaban [Eliquis] 5 MG Tablet) PO SCH (10:00)
[2025-07-08] MEDS ORDERED: BABY ASPIRIN 81 MG CHEW PO SCH (10:00)
[2025-07-08] MEDS ORDERED: NON-FORMULARY ITEM (Cyanocobalamin (Vitamin B-12) [B-12] 1,000 MCG Tablet) PO SCH (10:00)
[2025-07-08] MEDS ORDERED: [UNRECOGNIZED DRUG - OTHER] PO SCH (10:00)
[2025-07-08] MEDS ORDERED: BENAZEPRIL PO SCH (10:00)
[2025-07-08] MEDS ORDERED: METOPROLOL SUCCINATE 200 MG PO SCH (10:00)
--- NOTE | 2025-07-08 11:26 | PCM.DS ---
Discharge Summary Date of Admission: 07/07/25 21:34 Date of Discharge: 07/08/25 Admitting Physician: CINTIA HOWELL MD Primary Care Provider: MANNY KINNEY Allergies Allergies iodine Allergy (Verified 07/07/25 19:21) Sulfa (Sulfonamide Antibiotics) Allergy (Verified 07/07/25 19:21) Hospital Summary - Hospital Course Hospital Course: is a 80 year old male with a history of CAD (s/p CABG xx 5), carotid artery stenosis (with history of PCI on right, and complete occlusion on left), old stroke, atrial fibrillation (on Eliquis), peripheral vascular disease, HTN, prostate cancer, and DM, who presented to the ED with left upper extremity and left facial numbness that began approximately 5 PM prior to arrival on 07/07. He denied headache, chest pain, abdominal pain, visual changes, focal weakness or paresthesias. The patient's symptoms were persistent in the ED but significantly improved. The patient had a negative CT head and was evaluated by neurology in the ED with recommendations for MRI, carotid US, ECHO, and ASA 81 mg x 21 days in addition to Eliquis. MRI and carotid US reviewed. Pt to f/u OP with cardiothoracic surgery, cardiology, and neurology OP. There are no new acute findings on radiology records. Pt will need to f/u with cardiology for echo results. Pt reports today some index and thumb numbness on left hand and left lip numbness. He insist on going home today. He denies CP, SOB, abd. pain, N/V/D. - Vitals & Intake/Output Vital Signs: Vital Signs Temperature 98.1 F 07/08/25 08:00 Pulse Rate 63 07/08/25 08:00 Respiratory Rate 20 07/08/25 08:00 Blood Pressure 144/68 07/08/25 08:00 O2 Sat by Pulse Oximetry 98 07/08/25 08:00 Intake & Output: Intake & Output 07/05/25 07/06/25 07/07/25 07/08/25 11:59 11:59 11:59 11:59 Intake Total 480 Balance 480 Weight 85.9 kg - Lab Result Diagrams: 07/08/25 04:20 07/08/25 04:20 Lab Results-Last 24 Hrs: Lab Results-Last 24 Hours 07/07/25 07/07/25 07/07/25 Range/Units 19:20 19:20 19:20 WBC 8.6 (4.23-9.07) x10^3/uL RBC 4.78 (4.63-6.08) x10^6/uL Hgb 14.5 (13.7-17.5) g/dL Hct 43.0 (40.1-51.0) % MCV 90.0 (79.0-92.2) fL MCH 30.3 (25.7-32.2) pg MCHC 33.7 (32.3-36.5) g/dL RDW 12.8 (11.6-14.4) % Plt Count 270 (163-337) x10^3/uL MPV 9.9 (9.4-12.4) fL Gran % 65.1 (34.0-67.9) % Immature Gran % (Auto) 0.7 H (0.001-0.429) % Nucleat RBC Rel Count 0.0 (0.00-0.2) % Eos # (Auto) 0.11 (0.04-0.54) x10^3/uL Immature Gran # (Auto) 0.06 H (0.001-0.031) x10^3u/L Absolute Lymphs (auto) 2.25 (1.32-3.57) x10^3/uL Absolute Monos (auto) 0.55 (0.30-0.82) x10^3/uL Absolute Nucleated RBC 0.00 (0.00-0.012) x10^3u/L Lymphocytes % 26.2 (21.8-53.1) % Monocytes % 6.4 (5.3-12.2) % Eosinophils % 1.3 (0.8-7.0) % Basophils % 0.3 (0.2-1.2) % Absolute Granulocytes 5.58 H (1.78-5.38) x10^3/uL Basophils # 0.03 (0.01-0.08) x10^3/uL PT 11.4 (9.4-12.5) SECONDS INR 1.02 (0.8-3.0) Sodium 137 (135-145) mmol/L Potassium 3.8 (3.5-5.1) mmol/L Chloride 102 (98-107) mmol/L Carbon Dioxide 24 (22-30) mmol/L Anion Gap 14.4 (5-15) MEQ/L BUN 27 H (9-20) mg/dL Creatinine 1.41 H (0.66-1.25) mg/dL Estimated GFR 50.4 ML/MIN Glucose 174 H (74-106) mg/dL POC Glucometer (74 to 106) mg/dL Hemoglobin A1c (4.5-6.0) % Calcium 9.8 (8.4-10.2) mg/dL Magnesium (1.6-2.3) mg/dL Total Bilirubin 0.30 (0.2-1.3) mg/dL AST 22 (17-59) U/L ALT 17 (0-50) U/L Alkaline Phosphatase 55 (38-126) U/L Troponin I (0.000-0.033) ng/mL Serum Total Protein 7.0 (6.3-8.2) g/dL Albumin 4.4 (3.5-5.0) g/dL Triglycerides (30-150) mg/dL Cholesterol (50-200) mg/dL LDL Cholesterol (30-100) mg/dL HDL Cholesterol (40-60) mg/dL Heart Disease Risk Ratio TSH 3rd Generation (0.470-4.680) mIU/L 07/07/25 07/07/25 07/08/25 Range/Units 19:20 23:30 04:20 WBC (4.23-9.07) x10^3/uL RBC (4.63-6.08) x10^6/uL Hgb (13.7-17.5) g/dL Hct (40.1-51.0) % MCV (79.0-92.2) fL MCH (25.7-32.2) pg MCHC (32.3-36.5) g/dL RDW (11.6-14.4) % Plt Count (163-337) x10^3/uL MPV (9.4-12.4) fL Gran % (34.0-67.9) % Immature Gran % (Auto) (0.001-0.429) % Nucleat RBC Rel Count (0.00-0.2) % Eos # (Auto) (0.04-0.54) x10^3/uL Immature Gran # (Auto) (0.001-0.031) x10^3u/L Absolute Lymphs (auto) (1.32-3.57) x10^3/uL Absolute Monos (auto) (0.30-0.82) x10^3/uL Absolute Nucleated RBC (0.00-0.012) x10^3u/L Lymphocytes % (21.8-53.1) % Monocytes % (5.3-12.2) % Eosinophils % (0.8-7.0) % Basophils % (0.2-1.2) % Absolute Granulocytes (1.78-5.38) x10^3/uL Basophils # (0.01-0.08) x10^3/uL PT (9.4-12.5) SECONDS INR (0.8-3.0) Sodium (135-145) mmol/L Potassium (3.5-5.1) mmol/L Chloride (98-107) mmol/L Carbon Dioxide (22-30) mmol/L Anion Gap (5-15) MEQ/L BUN (9-20) mg/dL Creatinine (0.66-1.25) mg/dL Estimated GFR ML/MIN Glucose (74-106) mg/dL POC Glucometer (74 to 106) mg/dL Hemoglobin A1c (4.5-6.0) % Calcium (8.4-10.2) mg/dL Magnesium 1.6 (1.6-2.3) mg/dL Total Bilirubin (0.2-1.3) mg/dL AST (17-59) U/L ALT (0-50) U/L Alkaline Phosphatase (38-126) U/L Troponin I 0.020 0.024 0.028 (0.000-0.033) ng/mL Serum Total Protein (6.3-8.2) g/dL Albumin (3.5-5.0) g/dL Triglycerides (30-150) mg/dL Cholesterol (50-200) mg/dL LDL Cholesterol (30-100) mg/dL HDL Cholesterol (40-60) mg/dL Heart Disease Risk Ratio TSH 3rd Generation (0.470-4.680) mIU/L 07/08/25 07/08/25 07/08/25 Range/Units 04:20 04:20 04:20 WBC 7.7 (4.23-9.07) x10^3/uL RBC 4.61 L (4.63-6.08) x10^6/uL Hgb 13.8 (13.7-17.5) g/dL Hct 41.3 (40.1-51.0) % MCV 89.6 (79.0-92.2) fL MCH 29.9 (25.7-32.2) pg MCHC 33.4 (32.3-36.5) g/dL RDW 13.0 (11.6-14.4) % Plt Count 240 (163-337) x10^3/uL MPV 10.1 (9.4-12.4) fL Gran % 60.1 (34.0-67.9) % Immature Gran % (Auto) 0.6 H (0.001-0.429) % Nucleat RBC Rel Count 0.0 (0.00-0.2) % Eos # (Auto) 0.14 (0.04-0.54) x10^3/uL Immature Gran # (Auto) 0.05 H (0.001-0.031) x10^3u/L Absolute Lymphs (auto) 2.28 (1.32-3.57) x10^3/uL Absolute Monos (auto) 0.56 (0.30-0.82) x10^3/uL Absolute Nucleated RBC 0.00 (0.00-0.012) x10^3u/L Lymphocytes % 29.6 (21.8-53.1) % Monocytes % 7.3 (5.3-12.2) % Eosinophils % 1.8 (0.8-7.0) % Basophils % 0.6 (0.2-1.2) % Absolute Granulocytes 4.63 (1.78-5.38) x10^3/uL Basophils # 0.05 (0.01-0.08) x10^3/uL PT (9.4-12.5) SECONDS INR (0.8-3.0) Sodium 137 (135-145) mmol/L Potassium 3.9 (3.5-5.1) mmol/L Chloride 103 (98-107) mmol/L Carbon Dioxide 26 (22-30) mmol/L Anion Gap 11.6 (5-15) MEQ/L BUN 29 H (9-20) mg/dL Creatinine 1.16 (0.66-1.25) mg/dL Estimated GFR 63.7 ML/MIN Glucose 111 H (74-106) mg/dL POC Glucometer (74 to 106) mg/dL Hemoglobin A1c (4.5-6.0) % Calcium 9.5 (8.4-10.2) mg/dL Magnesium (1.6-2.3) mg/dL Total Bilirubin (0.2-1.3) mg/dL AST (17-59) U/L ALT (0-50) U/L Alkaline Phosphatase (38-126) U/L Troponin I (0.000-0.033) ng/mL Serum Total Protein (6.3-8.2) g/dL Albumin (3.5-5.0) g/dL Triglycerides 109 (30-150) mg/dL Cholesterol 126 (50-200) mg/dL LDL Cholesterol 65 (30-100) mg/dL HDL Cholesterol 39 L (40-60) mg/dL Heart Disease Risk Ratio 3.0 TSH 3rd Generation 1.253 (0.470-4.680) mIU/L 07/08/25 07/08/25 07/08/25 Range/Units 04:20 06:57 11:13 WBC (4.23-9.07) x10^3/uL RBC (4.63-6.08) x10^6/uL Hgb (13.7-17.5) g/dL Hct (40.1-51.0) % MCV (79.0-92.2) fL MCH (25.7-32.2) pg MCHC (32.3-36.5) g/dL RDW (11.6-14.4) % Plt Count (163-337) x10^3/uL MPV (9.4-12.4) fL Gran % (34.0-67.9) % Immature Gran % (Auto) (0.001-0.429) % Nucleat RBC Rel Count (0.00-0.2) % Eos # (Auto) (0.04-0.54) x10^3/uL Immature Gran # (Auto) (0.001-0.031) x10^3u/L Absolute Lymphs (auto) (1.32-3.57) x10^3/uL Absolute Monos (auto) (0.30-0.82) x10^3/uL Absolute Nucleated RBC (0.00-0.012) x10^3u/L Lymphocytes % (21.8-53.1) % Monocytes % (5.3-12.2) % Eosinophils % (0.8-7.0) % Basophils % (0.2-1.2) % Absolute Granulocytes (1.78-5.38) x10^3/uL Basophils # (0.01-0.08) x10^3/uL PT (9.4-12.5) SECONDS INR (0.8-3.0) Sodium (135-145) mmol/L Potassium (3.5-5.1) mmol/L Chloride (98-107) mmol/L Carbon Dioxide (22-30) mmol/L Anion Gap (5-15) MEQ/L BUN (9-20) mg/dL Creatinine (0.66-1.25) mg/dL Estimated GFR ML/MIN Glucose (74-106) mg/dL POC Glucometer 107 H 151 H (74 to 106) mg/dL Hemoglobin A1c 5.66 (4.5-6.0) % Calcium (8.4-10.2) mg/dL Magnesium (1.6-2.3) mg/dL Total Bilirubin (0.2-1.3) mg/dL AST (17-59) U/L ALT (0-50) U/L Alkaline Phosphatase (38-126) U/L Troponin I (0.000-0.033) ng/mL Serum Total Protein (6.3-8.2) g/dL Albumin (3.5-5.0) g/dL Triglycerides (30-150) mg/dL Cholesterol (50-200) mg/dL LDL Cholesterol (30-100) mg/dL HDL Cholesterol (40-60) mg/dL Heart Disease Risk Ratio TSH 3rd Generation (0.470-4.680) mIU/L Micro Results-Entire Visit: Accuchecks Date 07/08/25 Date 07/07/25 Time 19:10 - Radiology Exams Ordered Rad Exams-Entire Visit: Radiology Procedures Category Date Time Status CAROTID BILATERAL [US] Stat Exams 07/08/25 08:00 Taken ECHO W/2D AND DOPPLER [US] Stat Exams 07/08/25 09:00 Taken HEAD WITHOUT CONTRAST [CT] Stat Exams 07/07/25 18:51 Completed MRI BRAIN W & W/O CONTRAST [MRI] Stat Exams 07/08/25 08:00 Ordered - Procedures and Test Procedures and Tests throughout Hospitalization: Therapy Orders & Screens 07/07/25 21:42 EKG REPEAT IN AM Comment: 07/07/25 22:24 OT Eval and Treat (MD Order) ONCE Comment: Physician Instructions: Reason For Exam: Diagnosis: Left facial numbness 07/07/25 22:25 ST Eval & Treat (MD Order) ROUTINE Comment: Physician Instructions: Reason For Exam: Evaluate: Yes Treat: Yes Reason for Eval: TIA Diagnosis: Left facial numbness Discharge Exam General Appearance: no apparent distress, alert Neurologic Exam: alert, oriented x 3, cooperative, supervisor inventory merchandising II-XII nml as tested, normal mood/affect, nml cerebellar function, sensation nml, agitation (Pt is irritable being ruse and cursing at staff.), uncooperative, motor weakness (left index and thumb is numbe per pt, left side of lips is numb per pt), No motor deficits Eye Exam: PERRL, EOMI, eyes nml inspection Ears, Nose, Throat Exam: normal ENT inspection, pharynx normal, moist mucous membranes Neck Exam: normal inspection, non-tender, supple, full range of motion Respiratory Exam: normal breath sounds, lungs clear, No respiratory distress Cardiovascular Exam: regular rate/rhythm, normal heart sounds Gastrointestinal/Abdomen Exam: soft, No tenderness, No mass Male Genitalia Exam: deferred Rectal Exam: deferred Back Exam: normal inspection, normal range of motion, No CVA tenderness, No vertebral tenderness Extremity Exam: normal inspection, normal range of motion Skin Exam: normal color, warm, dry Final Diagnosis/Problem List - Final Discharge Diagnosis/Problem (1) Left facial numbness Current Visit: Yes Status: Acute Assessment & Plan: - C/O left side of lips + numbness - Head CT: Impression: Nonacute senile brain with right caudate remote lacunar infarct. Again incidental paranasal sinus disease. - MRI brain, Left carotid US, ECHO pending - EKG, TELE - Neurology consulted- ASA 81mg x 21 days along with Eliquis - A1C 5.66 - TSH 1.253 - Lipid panel reviewed- HDL 39- advised diet and exercise control to bring up - PT/OT/ST - Continue statins- LDL < 70 - Carotid US: 1. Total occlusion left carotid circulation as detailed. 2. Right carotid circulation demonstrates minimal arteriosclerotic disease in carotid bulb and origin external carotid artery. Velocity measurements and ratios negative for hemodynamically significant flow-limiting stenosis. - Appointment made with cardiothoracic surgeon. - Pt aware of left total occlusion and had this RECREATIONAL PROGRAMS DIRECTOR. - MRI brain: 1. Atrophy and degenerative microischemia within normal limits. Right caudate remote lacunar infarct. 2. Signal seen in visualized left internal carotid artery either due to occlusion versus sluggish flow. 3. No acute intracranial abnormalities or evidence for evolving large vessel territorial stroke. 4. Incidental paranasal sinus disease. - Appointments made with cardiology and neurology OP Code(s): R20.0 - ANESTHESIA OF SKIN (2) Left arm numbness Current Visit: Yes Status: Acute Assessment & Plan: - Pt reports only left thumb and index finger numbness today Code(s): R20.0 - ANESTHESIA OF SKIN (3) Irritability Current Visit: Yes Status: Acute Assessment & Plan: - Pt cursing and talking rudely to staff - Pt wants to d/c home today. (4) Type 2 diabetes mellitus Current Visit: No Status: Chronic Priority: High Assessment & Plan: - A1C 5.66- controlled - Monitor on ISS, accuchecks AC/HS - Hold metformin while inpatient. (5) Atrial fibrillation Current Visit: Yes Status: Chronic Assessment & Plan: - Continue Eliquis - Tele D/C plan of care time > 40 minutes - New med ASA 81 mg daily x 21 days Code(s): I48.91 - UNSPECIFIED ATRIAL FIBRILLATION - Discharge Discharge Date: 07/08/25 Disposition: Home, Self-Care Condition: Stable Prescriptions: New Aspirin EC 81 mg [Ecotrin 81 mg] 81 mg PO QAM 21 Days #21 tablet Continue Simvastatin 20 mg PO HS Triamterene/Hydrochlorothiazid [Triamterene-Hctz 37.5-25 mg Cp] 1 tab PO DAILY Amlodipine Besylate/Benazepril [Amlodipine-Benazepril 10-20 mg] 1 tab PO DAILY Fenofibrate,Micronized 145 mg* [Tricor 145 MG] 145 mg PO DAILY Metformin HCl 500 mg [Glucophage 500 MG] 500 mg PO BIDWM Metoprolol Succinate [Toprol Xl] 200 mg PO DAILY Trazodone HCl 50 mg [Desyrel 50 mg] 50 mg PO HS Vitamin E Mixed [Vitamin E] 100 unit PO DAILY Cholecalciferol (Vitamin D3) [Vitamin D] 5,000 unit PO DAILY Cyanocobalamin (Vitamin B-12) [B-12] 1,000 mcg PO DAILY Melatonin 10 mg PO HS Ondansetron ODT 4 MG [Zofran Odt 4 mg] 4 mg PO Q6H PRN PRN #10 tablet PRN Reason: Vomiting Magnesium Oxide 400 mg [Mag-Ox 400] 400 mg PO DAILY 3 Days #3 tablet Loperamide HCl 2 mg [Imodium 2 mg] 2 mg PO DAILY PRN 10 Days #120 cap PRN Reason: Diarrhea Lactobacillus Acidophilus [Acidophilus TABLET] 1 tab PO BID 30 Days #60 tablet Gabapentin [Neurontin ] 300 mg PO TID 30 Days #90 cap Tramadol HCl 50 mg [Ultram 50 mg] 50 mg PO BID PRN PRN 3 Days #6 tablet PRN Reason: Pain Naloxone HCl [Narcan] 4 mg NS DAILY PRN PRN 30 Days #1 PRN Reason: respiratory depression Apixaban [Eliquis] 5 mg PO BID Instructions: High cholesterol Follow up with: MANNY KINNEY MD [Primary Care Provider, INTERNAL MEDICINE] - 07/15/25 10:00 am
--- NOTE | 2025-07-08 11:40 | XRAY ---
Indication: Left facial numbness. Known total occlusion left carotid artery. Two-dimensional sonogram and color Doppler imaging carotid arteries of the neck performed. Comparison: None Examination right carotid circulation demonstrates widely patent common carotid and internal carotid arteries. Minimal eccentric calcification carotid bulb and lesser degree origins external carotid artery. PSV CCA 71 cm/sec. PSV ICA is 106 cm/sec. ICA/CCA ratio is 1.5. Normal antegrade vertebral artery flow. Examination left carotid circulation demonstrates widely patent common carotid artery. Total occlusion remaining carotid bulb, internal carotid, and external carotid arteries. Normal antegrade vertebral artery flow. Impression: 1. Total occlusion left carotid circulation as detailed. 2. Right carotid circulation demonstrates minimal arteriosclerotic disease in carotid bulb and origin external carotid artery. Velocity measurements and ratios negative for hemodynamically significant flow-limiting stenosis.
[2025-07-08] MEDS: VITAMIN D PO SCH (11:50)
[2025-07-08] MEDS: Acidophilus TABLET PO SCH (11:51)
[2025-07-08] MEDS: Lotrel 5/10 MG PO SCH (11:51)
[2025-07-08] MEDS: ECOTRIN 81 MG PO SCH (11:51)
[2025-07-08] MEDS: ELIQUIS 2.5 MG TABLET PO SCH (11:51)
[2025-07-08] MEDS: MAG-OX 400 PO SCH (11:51)
[2025-07-08] MEDS: Vitamin C 500 MG PO SCH (11:52)
[2025-07-08] MEDS: NEURONTIN PO SCH (11:52)
[2025-07-08] MEDS: Toprol Xl 50 MG PO SCH (11:52)
[2025-07-08] MEDS: Vitamin E 400 UNIT SOFTGEL PO SCH (11:53)
[2025-07-08] MEDS: Tricor 145 MG PO SCH (11:53)
[2025-07-08 12:09] VITALS: BP 152/78; PULSE 48; TEMP 97.7; O2SAT 99
--- NOTE | 2025-07-08 14:21 | XRAY ---
Indication: Left facial numbness. Sagittal, coronal, and axial MRI brain performed using pre and post T1, T2, FLAIR, diffusion, and ADC sequences. 15 cc Dotarem contrast used. Comparison: None Age-appropriate global atrophy and mild periventricular degenerative microischemia bilaterally. Remote lacunar infarct right caudate head. No acute intracranial hemorrhage, abnormal extra-axial fluid collection, or mass effect. Diffusion images negative for restricted signal. 4th ventricle is midline without hydrocephalus. 7/8 cranial nerve complex bilaterally symmetric. Visualized left internal carotid artery demonstrates signal throughout either due to occlusion versus sluggish flow. Otherwise normal flow void signal in the remaining major intracerebral circulation. Normal appearing craniocervical junction and sella turcica. Moderate mucosal thickening both ethmoid sinuses. Impression: 1. Atrophy and degenerative microischemia within normal limits. Right caudate remote lacunar infarct. 2. Signal seen in visualized left internal carotid artery either due to occlusion versus sluggish flow. 3. No acute intracranial abnormalities or evidence for evolving large vessel territorial stroke. 4. Incidental paranasal sinus disease.
[2025-07-08] MEDS ORDERED: DESYREL 50 MG PO SCH (22:00)
[2025-07-08] MEDS ORDERED: NON-FORMULARY ITEM (Melatonin [Melatonin] 10 MG Tablet) PO SCH (22:00)
[2025-07-08] MEDS ORDERED: ZOCOR 20MG PO SCH (22:00)
[2025-07-08] MEDS ORDERED: MELATONIN PO SCH (22:00)
== END 2025-07-08 16:08 | disposition home or self-care (01) ==
LOC: ED 18:49 → MED SURG 21:34
PROVIDERS: ADMIT Internal Medicine; ATTEND Internal Medicine
DX: R20.0 Anesthesia of skin (principal); R45.4 Irritability and anger; E11.9 Type 2 diabetes mellitus without complications; I48.91 Unspecified atrial fibrillation; I25.10 Atherosclerotic heart disease of native coronary artery without angina pectoris; I10 Essential (primary) hypertension; Z85.46 Personal history of malignant neoplasm of prostate; I73.9 Peripheral vascular disease, unspecified; E78.5 Hyperlipidemia, unspecified; Z86.73 Personal history of transient ischemic attack (TIA), and cerebral infarction without residual deficits; Z79.01 Long term (current) use of anticoagulants; Z79.899 Other long term (current) drug therapy; Z95.0 Presence of cardiac pacemaker